=== PATIENT | male | born 1980 | race Caucasian/White ===

== ENCOUNTER → 2018-04-14 16:00 | Outpatient (CLI) | payer BC, SELFPAY ==
[2018-04-14 18:22] LABS: ALB/GLOB Ratio 1.2 RATIO (0.9-2.4); AST(SGOT) 39 U/L (15-37); Alanine Aminotransfer ALT/SGPT 69 U/L (16-61); Albumin, Serum 4.5 g/dL (3.2-5.0); Alkaline Phosphatase 51 U/L (45-117); Anion Gap 11 (5-15); BUN 10 mg/dL (7-18); BUN/Creat Ratio 12.1 RATIO (10-20); Calcium,Total 9.3 mg/dL (8.5-10.1); Chloride 99 mmol/L (98-107); Cholesterol 233 mg/dL (200); Creatinine, Serum 0.83 mg/dL (0.70-1.30); EST Glomerular Filtration Rate 111 mL/min (>60); Est Glom Filt Rate - Afr Amer 134 mL/min (>60); Globulin 3.8 g/dL (2.2-4.2); Glucose 84 mg/dL (74-106); High Density Lipoprotein 43 mg/dL; Potassium 3.6 mmol/L (3.5-5.1); Protein, Total 8.3 g/dL (6.4-8.2); Sodium Level 138 mmol/L (136-145); Triglycerides 210 mg/dL; Very Low Density Lipoprotein 42 mg/dL (5-40)
== END ==
PROVIDERS: Family Provider Family Medicine; PCP Family Medicine; Visit Provider Family Medicine
DX: E78.5 Hyperlipidemia, unspecified (principal)
CPT/HCPCS: 36415; 80053; 80061

== ENCOUNTER → 2019-09-30 10:34 | Outpatient (CLI) | payer BC, SELFPAY ==
[2019-09-30 13:04] LABS: AST(SGOT) 35 U/L (15-37); Alanine Aminotransfer ALT/SGPT 66 U/L (16-61); Albumin, Serum 4.3 g/dL (3.2-5.0); Alkaline Phosphatase 46 U/L (45-117); Anion Gap 7 (5-15); BUN 12 mg/dL (7-18); BUN/Creat Ratio 13.8 RATIO (10-20); Calcium,Total 9.4 mg/dL (8.5-10.1); Chloride 102 mmol/L (98-107); Creatinine, Serum 0.87 mg/dL (0.70-1.30); EST Glomerular Filtration Rate 104 mL/min (>60); Est Glom Filt Rate - Afr Amer 126 mL/min (>60); Globulin 4.1 g/dL (2.2-4.2); Glucose 108 mg/dL (74-106); Potassium 4.1 mmol/L (3.5-5.1); Protein, Total 8.4 g/dL (6.4-8.2); Sodium Level 137 mmol/L (136-145)
== END ==
PROVIDERS: PCP Family Medicine; Referring Provider Family Medicine; Visit Provider Family Medicine
DX: I10 Essential (primary) hypertension (principal)
CPT/HCPCS: 36415; 80053

== ENCOUNTER → 2022-01-29 | Outpatient (CLI) | payer BC, SELFPAY ==
[2022-01-29 18:34] LABS: ALB/GLOB Ratio 1.2 RATIO (0.9-2.4); AST(SGOT) 38 U/L (15-37); Alanine Aminotransfer ALT/SGPT 64 U/L (16-61); Albumin, Serum 4.3 g/dL (3.2-5.0); Alkaline Phosphatase 53 U/L (45-117); Anion Gap 6 (5-15); BUN 10 mg/dL (7-18); BUN/Creat Ratio 14.4 RATIO (10-20); Calcium,Total 9.6 mg/dL (8.5-10.1); Chloride 101 mmol/L (98-107); Cholesterol 195 mg/dL (200); Creatinine, Serum 0.69 mg/dL (0.70-1.30); EST Glomerular Filtration Rate 134 mL/min (>60); Est Glom Filt Rate - Afr Amer 162 mL/min (>60); Globulin 3.6 g/dL (2.2-4.2); Glucose 97 mg/dL (74-106); High Density Lipoprotein 48 mg/dL; Potassium 3.5 mmol/L (3.5-5.1); Protein, Total 7.9 g/dL (6.4-8.2); Sodium Level 136 mmol/L (136-145); Triglycerides 212 mg/dL; Very Low Density Lipoprotein 42 mg/dL (5-40)
== END | disposition home or self-care (01) ==
LOC: MFPLAB 15:38
PROVIDERS: PCP Family Medicine; Referring Provider Family Medicine; Visit Provider Family Medicine
DX: E78.5 Hyperlipidemia, unspecified (principal); U07.1 COVID-19; R79.89 Other specified abnormal findings of blood chemistry
CPT/HCPCS: 36415; 80053; 80061; 86769

== ENCOUNTER → 2022-02-05 | Outpatient (CLI) | payer BC, SELFPAY | END | disposition home or self-care (01) | LOC: US 08:13 | PROVIDERS: PCP Family Medicine; Referring Provider Family Medicine; Visit Provider Family Medicine | DX: R79.89 Other specified abnormal findings of blood chemistry (principal) ==

== ENCOUNTER → 2023-04-03 | Outpatient (CLI) | payer BC, SELFPAY ==
[2023-04-03 12:43] LABS: Hepatitis B Surface Antibody Non-Reactive
[2023-04-03 12:44] LABS: ALB/GLOB Ratio 1.1 RATIO (0.9-2.4); AST(SGOT) 25 U/L (15-37); Alanine Aminotransfer ALT/SGPT 54 U/L (16-61); Albumin, Serum 4.1 g/dL (3.2-5.0); Alkaline Phosphatase 45 U/L (45-117); Anion Gap 5 (5-15); BUN 8 mg/dL (7-18); BUN/Creat Ratio 10.5 RATIO (10-20); Calcium,Total 9.6 mg/dL (8.5-10.1); Chloride 103 mmol/L (98-107); Cholesterol 168 mg/dL (200); Creatinine, Serum 0.76 mg/dL (0.70-1.30); EST Glomerular Filtration Rate 119 mL/min (>60); Est Glom Filt Rate - Afr Amer 144 mL/min (>60); Globulin 3.8 g/dL (2.2-4.2); Glucose 88 mg/dL (74-106); High Density Lipoprotein 30 mg/dL; Potassium 3.9 mmol/L (3.5-5.1); Protein, Total 7.9 g/dL (6.4-8.2); Sodium Level 137 mmol/L (136-145); Triglycerides 108 mg/dL; Very Low Density Lipoprotein 22 mg/dL (5-40)
== END | disposition home or self-care (01) ==
LOC: MTLAB 10:43
PROVIDERS: PCP Family Medicine; Visit Provider Family Medicine
DX: E78.5 Hyperlipidemia, unspecified (principal); R79.89 Other specified abnormal findings of blood chemistry; Z01.84 Encounter for antibody response examination
CPT/HCPCS: 36415; 80053; 80061; 86706

== ENCOUNTER → 2023-07-24 | Outpatient (CLI) | payer BC, SELFPAY ==
[2023-07-24 12:45] LABS: Rheumatoid Factor < 10.0 IU/mL (<15)
[2023-07-25 14:09] LABS: Anti-Smooth Muscle ABS 8 Units (0-19); Cytoplasmic Ab (C-ANCA) <1:20 titer (Neg:<1:20); Perinuclear Ab (P-ANCA) <1:20 titer (Neg:<1:20)
[2023-07-29 12:09] LABS: ANTINUCLEAR ANTIBODIES DIRECT Negative (Negative); Anti-Histone Abs 0.6 Units (0.0-0.9)
== END | disposition home or self-care (01) ==
LOC: MFPLAB 10:38
PROVIDERS: PCP Family Medicine; Visit Provider Family Medicine
DX: L30.9 Dermatitis, unspecified (principal)
CPT/HCPCS: 36415; 83516; 86038; 86235; 86256; 86431

== ENCOUNTER → 2023-08-05 | Outpatient (CLI) | payer BC, SELFPAY ==
[2023-08-05 12:27] LABS: Erythrocyte Sedimentation Rate 36 mm/hr (0-20)
[2023-08-05 12:33] LABS: Absolute Lymphocyte Count 1.12 X10^3/uL (0.83-4.51); Absolute Neutrophil Count 4.4 X10^3/uL (2.0-7.7); Basophil# 0.04 X10^3/uL; Basophil% 0.6 % (0-1); Eosinophil# 0.11 X10^3/uL; Eosinophils% 1.8 % (0-5); Hematocrit 44.3 % (40-54); Hemoglobin 14.8 g/dL (13.0-16.5); Lymphocyte # 1.12 X10^3/ul (0.83-4.51); Lymphocyte % 17.9 % (19-41); Mean Corp Hgb Conc 33.4 g/dL (32-36); Mean Corpuscular Hgb 29.6 pg (27.0-32.0); Mean Corpuscular Volume 88.6 fL (80-94); Mean Platelet Vol. 11.7 fl (6.2-12.0); Monocyte# 0.48 X10^3/uL; Monocyte% 7.7 % (0-10); NRBC Flagged by Analyzer 0 % (0-5); Neutrophil # 4.42 X10^3/uL (2.7-7.7); Neutrophil % 70.4 % (47-70); Platelet Count 177 K/mm3 (150-450); RBC Distribution Width CV 12.8 % (11.6-14.6); RBC Distribution Width SD 41.3 fl (35.1-43.9); White Blood Count 6.3 K/mm3 (4.4-11.0)
[2023-08-05 13:12] LABS: ALB/GLOB Ratio 0.8 RATIO (0.9-2.4); AST(SGOT) 96 U/L (15-37); Alanine Aminotransfer ALT/SGPT 123 U/L (16-61); Albumin, Serum 3.6 g/dL (3.2-5.0); Alkaline Phosphatase 74 U/L (45-117); Anion Gap 10 (5-15); BUN 13 mg/dL (7-18); BUN/Creat Ratio 14.2 RATIO (10-20); Calcium,Total 9.1 mg/dL (8.5-10.1); Chloride 102 mmol/L (98-107); Creatinine, Serum 0.92 mg/dL (0.70-1.30); EST Glomerular Filtration Rate 96 mL/min (>60); Est Glom Filt Rate - Afr Amer 116 mL/min (>60); Globulin 4.6 g/dL (2.2-4.2); Glucose 116 mg/dL (74-106); Potassium 3.9 mmol/L (3.5-5.1); Protein, Total 8.2 g/dL (6.4-8.2); Sodium Level 136 mmol/L (136-145); Thyroid Stim Hormone (TSH) 2.17 uIU/mL (0.358-3.74); Uric Acid 8.1 mg/dL (3.5-7.2)
[2023-08-06 13:07] LABS: CCP IgG Antibodies 5 units (0-19); Lyme Scn Total Ab w/Rflx Negative (Negative); PROEL- A/G Ratio 1.1 (0.7-1.7); PROEL- Albumin 3.9 g/dL (2.9-4.4); PROEL- Alpha-1 Globulin 0.3 g/dL (0.0-0.4); PROEL- Alpha-2 Globulin 1.1 g/dL (0.4-1.0); PROEL- Beta Globulin 1.2 g/dL (0.7-1.3); PROEL- Gamma Globulin 0.9 g/dL (0.4-1.8); PROEL- Globulin, Total 3.6 g/dL (2.2-3.9); PROEL- TOTAL PROTEIN 7.5 g/dL (6.0-8.5); PROEL-M-Spike Not Observed g/dL (Not Observed)
[2023-08-08 03:07] LABS: Alternaria tenuis 5.47 kU/L (Class IV); Ash, White 9.57 kU/L (Class IV); Aspergillus fumigatus 0.95 kU/L (Class II); Beef 0.34 kU/L (Class I); Bermuda Grass 9.46 kU/L (Class IV); Birch 7.86 kU/L (Class IV); Black Walnut 8.18 kU/L (Class IV); Cat Hair / Dander,Stand 0.57 kU/L (Class II); Cedar, Mountain 7.88 kU/L (Class IV); Chocolate 0.91 kU/L (Class II); Cockroach, American 5.44 kU/L (Class IV); Codfish 0.44 kU/L (Class I); Cottonwood 8.88 kU/L (Class IV); D farinae Mite 6.58 kU/L (Class IV); D pteronyssinus 0.88 kU/L (Class II); Dog Epithelia 2.01 kU/L (Class III); Egg, Whole 0.27 kU/L (Class 0/I); Elm, American White 9.05 kU/L (Class IV); Immunoglobulin E 562 IU/mL (6-495); Maple/Box Elder 8.68 kU/L (Class IV); Milk (Cow) 0.21 kU/L (Class 0/I); Mouse Urine 0.38 kU/L (Class I); Mulberry, White 7.75 kU/L (Class IV); Oak, White 7.79 kU/L (Class IV); Peanut 7.95 kU/L (Class IV); Pecan 7.93 kU/L (Class IV); Pigweed, Rough 8.97 kU/L (Class IV); Russian Thistle 9.03 kU/L (Class IV); Salmon 0.47 kU/L (Class I); Sheep Sorrel 8.96 kU/L (Class IV); Shrimp 2.69 kU/L (Class III); Soybean 6.24 kU/L (Class IV); Sycamore, American 9.81 kU/L (Class IV); Tuna 0.43 kU/L (Class I); Wheat 7.36 kU/L (Class IV)
== END | disposition home or self-care (01) ==
LOC: MFPLAB 10:13
PROVIDERS: PCP Family Medicine; Visit Provider Family Medicine
DX: R53.83 Other fatigue (principal); M25.50 Pain in unspecified joint; L98.9 Disorder of the skin and subcutaneous tissue, unspecified
CPT/HCPCS: 36415; 80053; 82785; 84165; 84443; 84550; 85025; 85652; 86003; 86005; 86140; 86200; 86618; 86803

== ENCOUNTER → 2023-08-07 | Outpatient (CLI) | payer BC, SELFPAY ==
--- OUTSIDE RECORDS SUMMARY | 2023-08-07 11:52 | XMS RPT_ITS | CCD ---
Author Name Unknown Address [address] [place] [address] Organization [facility] Care Team Providers Care Adaptive Physical Education Specialist Name Role Phone JOSIE WELSH Primary Care Unavailabl e Results Test Name Value Interpretation Reference Range Facil ity Encounters Encounter Date Encounter Type Care Provider Facility Start: 07-07-2023 End: 07-07-2023 ambulatory JOSIE Luna RITCHIEALIA Facility:[facility] Payers Date Payer Category Payer Unknown [id number] Progress note 07-07-2023 Note Date & Type Note Facility 07-07-2023 Note HNO ID: [id number] Author: Cara Dowd APRN.POWER HOUSE ENGINEER Service: ? Author Type: Nurse Practitioner Type: Progress Notes Filed: 07/07/2023 9:06 AM Note Text: Subjective Eye Problem Pertinent negatives include no chills, congestion, coughing, fever, headaches or sore throat. Ismael Humphreys is a 43 year old male who presents with swelling of his left lower eyelid. It was slight swollen the last 2 mornings, today it is more swollen. It is not tender. He states his left eye feels itchy. Denies visual difficulty or foreign body sensation. He has had increased watering of his left eye but no discharge. He denies associated URI symptoms. He denies any new medications. Review of Systems Constitutional: Negative for chills and fever. HENT: Negative for congestion, ear pain and sore throat. Eyes: Negative for blurred vision, double vision, photophobia, pain, discharge and redness. Respiratory: Negative for cough. Neurological: Negative for headaches. BP 128/82 Pulse 96 Temp 36.9 ?C (98.5 ?F) Resp 16 Wt 94.8 kg (209 lb) SpO2 98% BMI 29.99 kg/m? PAST MEDICAL HISTORY Diagnosis Date HTN (hypertension) PAST SURGICAL HISTORY Procedure Laterality Date NONE VASECTOMY UNI/BI SPX W/POSTOP SEMEN EXAMS Bilateral 07/30/2016 ALLERGIES Patient has no known allergies. MEDICATIONS amLODIPine-Valsartan 5-320 mg per tablet Take 1 tablet by mouth every afternoon. ketotifen fumarate (ZADITOR) 0.025 % (0.035 %) ophthalmic solution Use 1 Drop in the left eye two times a day for 30 days. acetaminophen-codeine (TYLENOL-COD #3) 300-30 mg per tablet Take 1 tablet by mouth every 4 hours as needed. LORazepam (ATIVAN) 2 mg tab Take 1 tablet by mouth as directed. Take 1 tablet by mouth 45 minutes prior to procedure No family history on file. Social History Tobacco Use Smoking status: Former Objective Physical Exam Vitals and nursing note reviewed. Constitutional: Appearance: Normal appearance. HENT: Right Ear: Tympanic membrane, ear canal and external ear normal. Left Ear: Tympanic membrane, ear canal and external ear normal. Nose: Nose normal. Mouth/Throat: Pharynx: Uvula midline. Eyes: General: Vision grossly intact. Gaze aligned appropriately. No allergic shiner. Left eye: No foreign body, discharge or hordeolum. Extraocular Movements: Left eye: Normal extraocular motion and no nystagmus. Conjunctiva/sclera: Right eye: Right conjunctiva is not injected. Left eye: Left conjunctiva is not injected. No chemosis, exudate or hemorrhage. Cardiovascular: Rate and Rhythm: Normal rate. Pulmonary: Effort: Pulmonary effort is normal. Musculoskeletal: Cervical back: Neck supple. Lymphadenopathy: Cervical: No cervical adenopathy. Skin: General: Skin is warm and dry. Findings: No erythema or rash. Neurological: Mental Status: He is alert. ASSESSMENT/PLAN: 1. Swelling of left eyelid - ICD9: 374.82, ICD10: H02.846 - suspect allergic - KETOTIFEN 0.025 % (0.035 %) EYE DROPS - Follow-up with your PCP in 3-5 days if symptoms have not improved or sooner if symptoms worsen - Discussed red flags and need for immediate medical evaluation if any occur. - Discussed supportive care treatment with fluids, rest and analgesia. - Discussed expected course of illness Cara Dowd APRN.[facility] Summary Purpose Family History No Family History Records Found Advance Directives No Advanced Directives Records Found Additional Source Comments (unrecognized sect ion and content) No Status Records Found INFORMATION SOURCE (unrecogn ized section and content) FOR RECORDS PERTAINING TO PATIENTS WHO ARE OR HAVE BEEN ENROLLED IN A CHEMICAL DEPENDENCY/SUBSTANCEABUSE PROGRAM, SOME INFORMATION MAY BE OMITTED. This clinical summary was aggregated from multiple sources. Caution should be exercised in using it in the provision of clinical care. This summary normalizes information from multiple sources, and as a consequence, information in this document may materially change the coding, format and clinical context of patient data. In addition, data may be omitted in some cases. CLINICAL DECISIONS SHOULD BE BASED ON THE PRIMARY CLINICAL RECORDS. [facility] [employer] [facility]. provides no warranty or guarantee of the accuracy or completeness of information in this document.
[2023-08-08 07:08] LABS: HEPATITIS B SURFACE AG Negative (Negative); Hep C Antibodies Non Reactive (Non Reactive); Hepatitis A IgM Antibody Negative (Negative); Hepatitis B Core AB IgM Negative (Negative)
== END | disposition home or self-care (01) ==
LOC: MFPLAB 11:19
PROVIDERS: PCP Family Medicine; Visit Provider Family Medicine
DX: R79.89 Other specified abnormal findings of blood chemistry (principal)
CPT/HCPCS: 36415; 80074

== ENCOUNTER → 2023-09-09 | Outpatient (CLI) | payer BC, SELFPAY ==
--- NOTE | 2023-09-09 11:31 | RAD_ITS ---
STUDY: X-RAY - ABDOMEN/PELVIS REASON FOR EXAM: Male, 43 years old. Fecal abnormalities TECHNIQUE: AP supine and upright views of the abdomen and pelvis. COMPARISON: None. FINDINGS: Normal visualized lung bases. There is an abundance of fecal material throughout the colon. There is no demonstrated free abdominal air. The visualized liver, spleen and kidneys are grossly normal in size and morphology. Normal soft tissue structures. RAD/Abd Inc Decub and/or Erect IMPRESSION: Large amount of fecal material is seen in the colon. Electronically Signed: Dontrell Issa MD at 15:11 EST ,
--- OUTSIDE RECORDS SUMMARY | 2023-09-09 12:00 | XMS RPT_ITS | CCD ---
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] Onset: 09-04-2023 Episodic Biliary tract disease (1 source) Other specified diseases of gallbladder; Translations: [Other specified diseases of gallbladder] Onset: 08-27-2023 Episodic Other non-traumatic joint disorders (1 source) Pain in unspecified joint; Translations: [Arthralgia, unspecified joint] Onset: 09-04-2023 Episodic Other screening for suspected conditions (not mental disorders or infectious disease) (2 sources) Other specified abnormal findings of blood chemistry; Translations: [Other specified abnormal findings of blood chemistry] Onset: 08-27-2023 Episodic Results Test Name Value Interpretation Reference Range Facil ity Encounters Encounter Date Encounter Type Care Provider Facility Start: 09-04-2023 End: 09-04-2023 ambulatory LAMIN WILD Facility:[facility] Start: 08-27-2023 End: 08-27-2023 ambulatory JOSIE WELSH [facility] Start: 07-07-2023 End: 07-07-2023 ambulatory JOSIE WELSH Facility:[facility] Payers Date Payer Category Payer Unknown [id number] 1980 Unknown [id number] Unknown Progress note 07-07-2023 Note Date & Type Note Facility 07-07-2023 Note HNO ID: [id number] Author: aCra Dowd APRN.MACHINE BUFFER Service: ? Author Type: Nurse Practitioner Type: [...] Discussed expected course of illness Cara Dowd APRN.[facility] Summary Purpose Family History No Family History Records FoundNo Family History Records FoundNo Family History Records Found Advance Directives No Advanced Directives Records FoundNo Advanced Directives Records FoundNo Advanced Directives Records Found Additional Source Comments (unrecognized sect ion and content) No Status Records FoundNo Status Records FoundNo Status Records Found INFORMATION SOURCE (unrecogn ized section and content) DATE CREATED AUTHOR AUTHOR'S ORGANIZ ATION 08/29/2023 [facility] DATE CREATED AUTHOR AUTHOR'S ORGANIZ ATION 09/06/2023 [facility] FOR RECORDS PERTAINING TO PATIENTS WHO ARE [...] BE BASED ON THE PRIMARY CLINICAL RECORDS. [employer] [facility]. provides no warranty or guarantee of the accuracy or completeness of information in this document.
[2023-09-09 15:26] LABS: Absolute Lymphocyte Count 1.01 X10^3/uL (0.83-4.51); Absolute Neutrophil Count 3.3 X10^3/uL (2.0-7.7); Basophil# 0.01 X10^3/uL; Basophil% 0.2 % (0-1); Eosinophil# 0.17 X10^3/uL; Eosinophils% 3.6 % (0-5); Hematocrit 38.2 % (40-54); Hemoglobin 12.4 g/dL (13.0-16.5); Lymphocyte # 1.01 X10^3/ul (0.83-4.51); Lymphocyte % 21.2 % (19-41); Mean Corp Hgb Conc 32.5 g/dL (32-36); Mean Corpuscular Hgb 27.8 pg (27.0-32.0); Mean Corpuscular Volume 85.7 fL (80-94); Monocyte% 6.3 % (0-10); NRBC Flagged by Analyzer 0 % (0-5); Neutrophil # 3.25 X10^3/uL (2.7-7.7); Neutrophil % 68.3 % (47-70); Platelet Count 174 K/mm3 (150-450); RBC Distribution Width CV 13.3 % (11.6-14.6); RBC Distribution Width SD 41.5 fl (35.1-43.9); Red Blood Count 4.46 M/mm3 (4.6-6.2); White Blood Count 4.8 K/mm3 (4.4-11.0)
[2023-09-09 15:45] LABS: Erythrocyte Sedimentation Rate 30 mm/hr (0-20)
[2023-09-09 16:11] LABS: ALB/GLOB Ratio 0.9 RATIO (0.9-2.4); AST(SGOT) 56 U/L (15-37); Alanine Aminotransfer ALT/SGPT 79 U/L (16-61); Albumin, Serum 3.6 g/dL (3.2-5.0); Alkaline Phosphatase 57 U/L (45-117); Anion Gap 10 (5-15); BUN 6 mg/dL (7-18); BUN/Creat Ratio 9.3 RATIO (10-20); CPK Total, Creatine Kinase 256 U/L (39-308); CRP 7.33 mg/L (0.0-3.0); Chloride 105 mmol/L (98-107); Creatinine, Serum 0.65 mg/dL (0.70-1.30); EST Glomerular Filtration Rate 144 mL/min (>60); Est Glom Filt Rate - Afr Amer 174 mL/min (>60); GGTP 64 U/L (15-85); Globulin 3.9 g/dL (2.2-4.2); Glucose 85 mg/dL (74-106); Potassium 3.6 mmol/L (3.5-5.1); Protein, Total 7.5 g/dL (6.4-8.2); Rheumatoid Factor < 10.0 IU/mL (<15); Sodium Level 140 mmol/L (136-145)
[2023-09-11 10:09] LABS: Lyme Scn Total Ab w/Rflx Negative (Negative)
[2023-09-11 14:09] LABS: ANTINUCLEAR ANTIBODIES DIRECT Negative (Negative); Anti-Mitochondrial AB <20.0 Units (0.0-20.0)
[2023-09-11 15:08] LABS: Aldolase 6.4 U/L (3.3-10.3); Anti-Smooth Muscle ABS 9 Units (0-19); CCP IgG Antibodies 8 units (0-19)
== END | disposition home or self-care (01) ==
PROVIDERS: Internal Medicine Rheumatology; PCP Family Medicine; Referring Provider Family Medicine; Visit Provider Family Medicine
DX: M06.4 Inflammatory polyarthropathy (principal); R74.8 Abnormal levels of other serum enzymes; I10 Essential (primary) hypertension; R19.5 Other fecal abnormalities; M25.50 Pain in unspecified joint
CPT/HCPCS: 36415; 74019; 80053; 82085; 82271; 82550; 82977; 83516; 83630; 85025; 85652; 86038; 86140; 86200; 86431; 86618; 87177; 87209; 87493; 87506

== ENCOUNTER 2023-09-10 15:46 | Outpatient (CLI) | payer BC, SELFPAY ==
[2023-09-17 22:07] LABS: Pancreatic Elastase, Fecal 64 (>200)
== END 2023-09-10 23:59 | disposition home or self-care (01) ==
LOC: LABSPEC 15:46
PROVIDERS: PCP Family Medicine; Referring Provider Family Medicine; Visit Provider Family Medicine
DX: R19.5 Other fecal abnormalities (principal)
CPT/HCPCS: 82653; 87177; 87209

== ENCOUNTER 2023-09-20 17:01 | Observation (INO) | payer BC, SELFPAY ==
[2023-09-20 17:03] VITALS: BP 107/76; PULSE 145; RESP 22; TEMP 36.6; O2SAT 97
[2023-09-20 17:38] VITALS: BMI 25.9
[2023-09-20 17:47] VITALS: BP 129/88; PULSE 132; O2SAT 96
[2023-09-20 17:47] LABS: Absolute Lymphocyte Count 0.98 X10^3/uL (0.83-4.51); Absolute Neutrophil Count 7.6 X10^3/uL (2.0-7.7); Basophil# 0.02 X10^3/uL; Basophil% 0.2 % (0-1); Eosinophil# 0.03 X10^3/uL; Eosinophils% 0.3 % (0-5); Hematocrit 33.6 % (40-54); Hemoglobin 11.3 g/dL (13.0-16.5); Lymphocyte # 0.98 X10^3/ul (0.83-4.51); Lymphocyte % 10.4 % (19-41); Mean Corp Hgb Conc 33.6 g/dL (32-36); Mean Corpuscular Hgb 28.5 pg (27.0-32.0); Mean Corpuscular Volume 84.8 fL (80-94); Mean Platelet Vol. 11.8 fl (6.2-12.0); Monocyte# 0.75 X10^3/uL; NRBC Flagged by Analyzer 0 % (0-5); Neutrophil # 7.59 X10^3/uL (2.7-7.7); Neutrophil % 80.7 % (47-70); Platelet Count 173 K/mm3 (150-450); RBC Distribution Width CV 13.4 % (11.6-14.6); RBC Distribution Width SD 41.6 fl (35.1-43.9); Red Blood Count 3.96 M/mm3 (4.6-6.2); White Blood Count 9.4 K/mm3 (4.4-11.0)
--- NOTE | 2023-09-20 17:47 | EDS_ITS ---
HPI HPI - GI History of Present Illness Chief Complaint: Abd Pain Narrative Narrative: 43-year-old male presenting with abdominal pain, cramping. He states he had it on and off since June. He states has been seeing his primary care provider for this and has had multiple labs drawn. He states that so far he had a ultrasound of the right upper quadrant which was negative. He had an x-ray which was negative. His blood work has not been very remarkable except he does mention that he had some kind of allergy testing in his labs and he was allergic to a lot of different things. He states that specifically mentioning allergic to corn, shrimp, beef. He states he eats he stands all the time and does not have any difficulty. He states he does go to [place] frequently and eat seafood and specifically mentions he is allergic to this as well although he does not have any symptoms when he eats. The patient has been having loose stools since June. Initially started with constipation and took some MiraLAX and his constipation resolved he had loose stools. He states he had multiple office visits and blood test which have not been diagnostic. He does express some concern that he has a family member who has Crohn's disease and she thinks he m ight have a bowel obstruction and Crohn's disease although has not been diagnosed and none of his lab work has been consistent with this. Patient also states that they thought he had rheumatoid arthritis and they put him on prednisone for a stent and he said this made him feel awful and he did not like the way it felt. Patient does note that after the last 2 days he has had some left-sided lower abdominal pain which is able to localize with 1 finger to the left lower quadrant. He states he has a fever of 102 ?F yesterday and his stool is much looser than it has been. Denies black or bloody stools. He does admit to about a 30 pound weight loss since June. He was post have an outpatient CT performed but has not had this done due to scheduling issues. He is supposed to see somebody from rheumatology but this appointment also had scheduling issues. He is referred to GI and was referred to both someone at [facility] and to another local GI doctor to see who he had an first. [facility] Medical History HTN (hypertension) Home Medications amlodipine 5 mg-valsartan 320 mg tablet 1 tab PO DAILY 09/20/23 [History Last Taken Unknown] multivitamin 1 tab PO DAILY 09/20/23 [History Last Taken Unknown] Allergy/AdvReac Type Severity Reaction Status Date / Time No Known Allergies Allergy Verified 09/20/23 17:02 Family History Mother Cancer Father Li's palsy Grandfather CVA (cerebral vascular accident) Surgical History H/O: vasectomy Social History household members: family housing: house number of children: 2 current occupational status: employed Smoking Status: Never smoker EXAM Physical Exam Const Vital Signs: 09/20/23 17:03 09/20/23 17:47 Temperature 98 F Temperature Source Temporal Pulse Rate 145 H 132 H Respiratory Rate 22 H Blood Pressure 107/76 129/88 H Blood Pressure Mean 86 101 Pulse Ox 97 96 Oxygen Delivery Method Room Air Positive well nourished General Appearance ED: NAD; Negative for pallor HEENT Reports TM's clear and moist mucous membranes normocephalic Tympanic Membrane ED: Yes TM's clear Cardio regular rate Rate: tachycardic GI Palpation: tender LLQ Back/Spine no CVA tenderness Neuro CN's II-XII intact bilaterally Sensorium / Orientation: alert Psych mental status grossly normal Skin General Skin Exam: Negative for jaundice or pallor MDM MDM MDM Narrative Medical decision making narrative: 43-year-old male presents with left lower quadrant abdominal pain. Patient presenting with right flank pain. Differential includes colitis, diverticulitis, gastritis, pancreatitis, constipation, UTI, pyelonephritis, renal calculi, ureteral calculi, bowel obstruction, malignancy, dehydration, electrolyte abnormalities. Ultimately CBC, CMP, lipase all within normal limits with exception of wrists hemoglobin which has been trending down slightly. Patient denies black or bloody stools. Patient declined analgesia. We did obtain a CT of the abdomen pelvis with IV contrast which shows a low-density mass arising off of the distal sigmoid which could be focal colitis versus abscess versus mass/malignancy. Given the patient's story of weight loss I suspect malignancy. I spoke with Dr. Gabriel who reviewed the CT and concurs. It is unclear why the patient had a fever but he is very well- appearing and his vital signs have been normal with exception of a little tachycardia. Did send for COVID, influenza, RSV. It was recommended that I admit the patient to medicine for bowel prep tomorrow and colonoscopy on Friday to do biopsies. Patient was amenable to this plan. He is admitted in stable condition. Impression: 1. Abdominal pain 2. Intestinal mass Lab Data Attestation: I reviewed the patient's lab results. Labs: Laboratory Results - last 24 hr 09/20/23 17:40 WBC 9.4 RBC 3.96 L Hgb 11.3 L Hct 33.6 L MCV 84.8 MCH 28.5 MCHC 33.6 RDW Std Deviation 41.6 RDW Coeff of Elysia 13.4 Plt Count 173 MPV 11.8 Immature Gran % (Auto) 0.400 Neut % (Auto) 80.7 H Lymph % (Auto) 10.4 L [place] % (Auto) 8.0 Eos % (Auto) 0.3 Baso % (Auto) 0.2 Absolute Neuts (auto) 7.6 Absolute Lymphs (auto) 0.98 Nucleated RBC % 0 Sodium 136 Potassium 3.4 L Chloride 104 Carbon Dioxide 23.0 Anion Gap 9 BUN 7 Creatinine 0.54 L Estim Creat Clear Calc 184.00 Est GFR (MDRD) Af Amer 214 Est GFR (MDRD) Non-Af 177 BUN/Creatinine Ratio 13.0 Glucose 94 Calcium 8.7 Total Bilirubin 1.00 AST 29 ALT 41 Alkaline Phosphatase 52 Total Protein 7.0 Albumin 3.1 L Globulin 3.9 Albumin/Globulin Ratio 0.8 L Lipase 14 Radiography Diagnostic Testing: Clinical Impression(s) from Imaging Studies Abdomen/Pelvis CT 09/20/23 18:15 IMPRESSION: Low-density mass in the pelvis arising off of the distal sigmoid colon. There is thickening the wall the adjacent colon is uncertain whether this represents focal colitis or developing abscess or a colon mass. There is inflammation in the surrounding mesentery with thickening of the wall and terminal ileum. There is no free air identified. Further evaluation with colonoscopy may be beneficial. Electronically Signed: Glen Baptiste MD at 18:43 EST , Discharge Plan Triage Chief Complaint: Abd Pain ED Provider: Gilberto Chi Dx/Rx/DC Orders Primary Care Provider: Timoteo Jara
[2023-09-20] MEDS: 0.9% Normal Saline (1000mL) 1,000 ML 1000 ML IV (17:48)
[2023-09-20 18:09] LABS: ALB/GLOB Ratio 0.8 RATIO (0.9-2.4); AST(SGOT) 29 U/L (15-37); Alanine Aminotransfer ALT/SGPT 41 U/L (16-61); Albumin, Serum 3.1 g/dL (3.2-5.0); Alkaline Phosphatase 52 U/L (45-117); Anion Gap 9 (5-15); BUN 7 mg/dL (7-18); Calcium,Total 8.7 mg/dL (8.5-10.1); Chloride 104 mmol/L (98-107); Creatinine, Serum 0.54 mg/dL (0.70-1.30); EST Glomerular Filtration Rate 177 mL/min (>60); Est Glom Filt Rate - Afr Amer 214 mL/min (>60); Globulin 3.9 g/dL (2.2-4.2); Glucose 94 mg/dL (74-106); Lipase 14 U/L (13-75); Potassium 3.4 mmol/L (3.5-5.1); Sodium Level 136 mmol/L (136-145)
--- NOTE | 2023-09-20 18:15 | CT_ITS ---
EXAM: CT ABDOMEN AND PELVIS WITH INTRAVENOUS CONTRAST CLINICAL INDICATION: llq abdominal pain TECHNIQUE: Helically acquired images were obtained of the abdomen and pelvis with intravenous contrast. This CT exam was performed using one or more of the following dose reduction techniques: automated exposure control, adjustment of the mA and/or kV according to patient size, and/or use of iterative reconstruction technique. CONTRAST: IV 100mL Isovue-370 COMPARISON: No relevant prior studies available. FINDINGS: LOWER THORAX: Unremarkable. Lung bases are clear. No cardiomegaly. No significant pericardial effusion. ABDOMEN: LIVER: Unremarkable. Homogeneous. No focal mass. GALLBLADDER AND BILE DUCTS: Unremarkable. No calcified gallstones. No gallbladder distention or wall edema. No intra- or extrahepatic biliary ductal dilation. PANCREAS: Unremarkable. No focal cystic or solid mass. SPLEEN: Unremarkable. Normal size without focal cystic or solid mass. ADRENALS: Unremarkable. No nodules. KIDNEYS AND URETERS: Unremarkable. Normal renal size and position. No hydronephrosis. STOMACH AND BOWEL: There is a 5.8 x 4.4 x 4.5 cm low density mass abutting against the distal sigmoid colon. There is thickening of the wall the colon surroundin uncertain whether this represents focal colitis with a developing abscess or a colon mass. There is adjacent thickening of the wall, ileum. There is no evidence of free air. No stomach or bowel distention. PELVIS: APPENDIX: No evidence of acute appendicitis. BLADDER: Unremarkable. REPRODUCTIVE: Unremarkable as visualized. No mass. ABDOMEN and PELVIS: INTRAPERITONEAL SPACE: See above. BONES/JOINTS: Unremarkable. No suspicious lytic or blastic abnormality. SOFT TISSUES: Unremarkable. No discrete abdominal or pelvic wall hernia. VASCULATURE: Unremarkable. Abdominal aorta is non-dilated. LYMPH NODES: Unremarkable. No enlarged lymph nodes. CT/Abdomen/Pelvis W IV Cont ONLY IMPRESSION: Low-density mass in the pelvis arising off of the distal sigmoid colon. There is thickening the wall the adjacent colon is uncertain whether this represents focal colitis or developing abscess or a colon mass. There is inflammation in the surrounding mesentery with thickening of the wall and terminal ileum. There is no free air identified. Further evaluation with colonoscopy may be beneficial. Electronically Signed: Glen Baptiste MD at 18:43 EST ,
--- NOTE | 2023-09-20 19:43 | HP.PCM.HOS_ITS ---
[facility] - General General Date of Admission: 09/20/23 Date of Service: 09/20/23 Chief Complaint: Abdominal Pain with ~30# weight loss and Fever. HPI Narrative ISMAEL HUMPHREYS, is a 43 M with a past medical history of essential hypertension and positive family history of Crohn's disease in his sister who presents to [facility] ER complaining of abdominal pain. Mr. Humphreys reports his symptoms began approximately three months prior to admission with cramping abdominal pain and constipation for which he has been evaluated by his PCP with an extensive laboratory workup and imaging with allergy testing incongruent with his experience. He then began to take MiraLAX and his constipation resolved but his abdominal pain did not with an ~30 # weight loss since June 2023. At one point he was started on Prednisone for suspected RA which actually made his symptoms worse. An outpatient CT was ordered but was yet to be obtained due to scheduling issues. Then over the past 2 days he developed a fever up to 102 degrees Fahrenheit with worsening abdominal pain and non-bloody diarrhea so he decided to come in for further evaluation and treatment. In the ER his CT scan of the abdomen and pelvis revealed a Low-density mass in the pelvis arising off of the distal sigmoid colon with thickening of the wall of the adjacent colon suspicious for possible focal colitis and/or developing abscess or a colon mass with inflammation in the surrounding mesentery with thickening of the wall and terminal ileum with no free air identified and radiologist recommending further evaluation with colonoscopy with laboratory tests positive for Hypokalemia of 3.4 mmol/L present on admission and he was then admitted to the general medical floor for ongoing care for a stay that is expected to be greater than 48 hours. [facility] Medical History HTN (hypertension) Home Medications amlodipine 5 mg-valsartan 320 mg tablet 1 tab PO DAILY 09/20/23 [History Last Taken Unknown] multivitamin 1 tab PO DAILY 09/20/23 [History Last Taken Unknown] Allergy/AdvReac Type Severity Reaction Status Date / Time No Known Allergies Allergy Verified 09/20/23 17:02 Family History Mother Cancer Father Li's palsy Grandfather CVA (cerebral vascular accident) Surgical History H/O: vasectomy Social History household members: family housing: house number of children: 2 current occupational status: employed Smoking Status: Never smoker Vital Signs Vital Signs Vital Signs: 09/20/23 17:03 09/20/23 17:47 Temperature 98 F Temperature Source Temporal Pulse Rate 145 H 132 H Respiratory Rate 22 H Blood Pressure 107/76 129/88 H Blood Pressure Mean 86 101 Pulse Ox 97 96 Oxygen Delivery Method Room Air Weight Weight: 181 lb 3.52 oz Body Mass Index (BMI) 25.9 Physical Exam Const alert, oriented x3, no apparent distress and average body habitus General Appearance: cooperative HEENT normocephalic, head/scalp atraumatic and hearing grossly normal bilaterally Results Medical Records Data Attestation: I reviewed the patient's medical records Lab / Micro Data Attestation: I reviewed the patient's lab results. 09/20/23 17:40 09/20/23 17:40 Labs: Laboratory Results - last 24 hr 09/20/23 17:40: WBC 9.4, RBC 3.96 L, Hgb 11.3 L, Hct 33.6 L, MCV 84.8, MCH 28.5, MCHC 33.6, RDW Std Deviation 41.6, RDW Coeff of Elysia 13.4, Plt Count 173, MPV 11.8, Immature Gran % (Auto) 0.400, Neut % (Auto) 80.7 H, Lymph % (Auto) 10.4 L, [place] % (Auto) 8.0, Eos % (Auto) 0.3, Baso % (Auto) 0.2, Absolute Neuts (auto) 7.6, Absolute Lymphs (auto) 0.98, Nucleated RBC % 0, Sodium 136, Potassium 3.4 L , Chloride 104, Carbon Dioxide 23.0, Anion Gap 9, BUN 7, Creatinine 0.54 L, Estim Creat Clear Calc 184.00, Est GFR (MDRD) Af Amer 214, Est GFR (MDRD) Non-Af 177, BUN/Creatinine Ratio 13.0, Glucose 94, Calcium 8.7, Total Bilirubin 1.00, AST 29, ALT 41, Alkaline Phosphatase 52, Total Protein 7.0, Albumin 3.1 L, Globulin 3.9, Albumin/Globulin Ratio 0.8 L, Lipase 14 Imaging Radiology Impression Abdomen/Pelvis CT 09/20/23 18:15 IMPRESSION: Low-density mass in the pelvis arising off of the distal sigmoid colon. There is thickening the wall the adjacent colon is uncertain whether this represents focal colitis or developing abscess or a colon mass. There is inflammation in the surrounding mesentery with thickening of the wall and terminal ileum. There is no free air identified. Further evaluation with colonoscopy may be beneficial. Electronically Signed: Glen Baptiste MD at 18:43 EST , Assessment & Plan Assessment/Plan (1) Focal active colitis: (2) Diarrhea: QUALIFIERS: Diarrhea type: unspecified type Qualified Code(s): R19.7 - Diarrhea, unspecified (3) Hypokalemia due to excessive gastrointestinal loss of potassium: (4) Abdominal pain: QUALIFIERS: Abdominal location: generalized Qualified Code(s): R10.84 - Generalized abdominal pain (5) Weight loss, non-intentional: PLAN: Plan 1. CT positive for Low-density mass in the pelvis arising off of the distal sigmoid colon with thickening of the wall of the adjacent colon suspicious for possible focal colitis and/or developing abscess or a colon mass with inflammation in the surrounding mesentery with thickening of the wall and termin al ileum with no free air identified and radiologist recommending further evaluation with colonoscopy - Admit to general medical floor. Start empiric IV Rocephin and IV Flagyl to cover Gram-negatives and anaerobes typically associated with colitis and await culture and sensitivity data. Give Tylenol prn for [id number] (level 1-5/10) pain or fever. Give Morphine IV prn for severe (level6-10/10) pain. Finally, we will consult Dr. Gabriel of general surgery to see this patient on-rounds in the AM for further recommendations regarding colonoscopy and possible biopsy with help appreciated in advance. 2. Diarrhea with Chronic Abdominal Pain and Hypokalemia of 3.4 mmol/L present on admission complicating #1 - Check stool studies and place on enteric precautions. Give supplemental KCl and then recheck BMP in the AM to ensure improvement. 3. Unintentional ~30# weight loss since June 2023 with a high-index of suspicion for underlying malignancy compounding #1 & #2 - Noted. Add Ensure to meals. Check prealbumin and encourage PO intake. 4. Positive family history of Crohn's disease in his sister with CT revealing thickening of the terminal ileum - Noted. Crohn's diagnosis may be coexisting with possible malignancy. 5. Essential Hypertension - Continue Amlodipine as previous plus give prn IV Hydralazine for systolic blood pressure > 160 mm Hg. 6. DVT prophylaxis - Heparin 5,000 units sq TID plus SCD's. Total time: Approximately 75 minutes. Charges/Coding Visit Charges Inpatient E&M: 82977 Init Hosp L3
[2023-09-20 20:44] VITALS: BP 123/74; PULSE 112; RESP 19; O2SAT 95
[2023-09-20 20:45] VITALS: BP 123/74; PULSE 112; RESP 19; TEMP 36.7; O2SAT 95
[2023-09-20 21:26] VITALS: BMI 25.7
[2023-09-20 21:42] VITALS: BP 128/81; PULSE 120; RESP 18; TEMP 36.9; O2SAT 97
[2023-09-20] MEDS: KCL 20MEQ in 0.9% NS 20 MEQ/1,000 ML IV.SOLN. 150 MEQ IV (21:48)
[2023-09-20] MEDS: metroNIDAZOLE 500 MG/100 ML BAG 100 MG IV (22:10)
[2023-09-20] MEDS: Heparin Injection (Vial) 5,000 UNIT/ML VIAL 5000 UNIT SC (22:10)
[2023-09-20] MEDS: Potassium Chloride Oral Tablet 20 MEQ 60 MEQ PO (22:16)
[2023-09-20] MEDS: Ceftriaxone 1 GM/50 ML BAG IV (22:17)
[2023-09-20 23:24] VITALS: O2SAT 98
[2023-09-21] MEDS: MELATONIN 3 MG TABLET 6 MG PO (00:09)
[2023-09-21 03:40] VITALS: BP 116/79; PULSE 108; RESP 18; TEMP 36.9; O2SAT 100
[2023-09-21 06:00] VITALS: BMI 26.2
[2023-09-21] MEDS: Heparin Injection (Vial) 5,000 UNIT/ML VIAL 5000 UNIT SC ×3 (06:00→22:37)
[2023-09-21] MEDS: metroNIDAZOLE 500 MG/100 ML BAG 100 MG IV ×3 (06:00→22:34)
[2023-09-21] MEDS: KCL 20MEQ in 0.9% NS 20 MEQ/1,000 ML IV.SOLN. 150 MEQ IV (06:00)
[2023-09-21 06:38] LABS: Absolute Lymphocyte Count 0.91 X10^3/uL (0.83-4.51); Absolute Neutrophil Count 5.2 X10^3/uL (2.0-7.7); Basophil# 0.01 X10^3/uL; Basophil% 0.1 % (0-1); Eosinophil# 0.05 X10^3/uL; Eosinophils% 0.7 % (0-5); Hematocrit 31.8 % (40-54); Hemoglobin 10.2 g/dL (13.0-16.5); Lymphocyte # 0.91 X10^3/ul (0.83-4.51); Lymphocyte % 13.1 % (19-41); Mean Corp Hgb Conc 32.1 g/dL (32-36); Mean Corpuscular Hgb 27.6 pg (27.0-32.0); Mean Corpuscular Volume 85.9 fL (80-94); Mean Platelet Vol. 12.9 fl (6.2-12.0); Monocyte% 10.1 % (0-10); NRBC Flagged by Analyzer 0 % (0-5); Neutrophil # 5.24 X10^3/uL (2.7-7.7); Neutrophil % 75.6 % (47-70); Platelet Count 161 K/mm3 (150-450); RBC Distribution Width CV 13.6 % (11.6-14.6); RBC Distribution Width SD 42.5 fl (35.1-43.9); White Blood Count 6.9 K/mm3 (4.4-11.0)
[2023-09-21 07:17] LABS: ALB/GLOB Ratio 0.7 RATIO (0.9-2.4); AST(SGOT) 23 U/L (15-37); Alanine Aminotransfer ALT/SGPT 28 U/L (16-61); Albumin, Serum 2.6 g/dL (3.2-5.0); Alkaline Phosphatase 44 U/L (45-117); Anion Gap 6 (5-15); BUN 6 mg/dL (7-18); Calcium,Total 8.3 mg/dL (8.5-10.1); Chloride 110 mmol/L (98-107); Creatinine, Serum 0.46 mg/dL (0.70-1.30); EST Glomerular Filtration Rate 213 mL/min (>60); Est Glom Filt Rate - Afr Amer 258 mL/min (>60); Globulin 3.6 g/dL (2.2-4.2); Glucose 89 mg/dL (74-106); Magnesium 2.3 mg/dL (1.6-2.6); Phosphorus 3.1 mg/dL (2.5-4.9); Potassium 4.2 mmol/L (3.5-5.1); Protein, Total 6.2 g/dL (6.4-8.2); Sodium Level 138 mmol/L (136-145); Thyroid Stim Hormone (TSH) 1.56 uIU/mL (0.358-3.74)
--- NOTE | 2023-09-21 07:36 | PN.HOSP_ITS ---
Reason for Visit Reason for Visit: Abdominal pain/weight loss/fever Subjective Subjective Mr. Humphreys is a 43-year-old white male who presented to the emergency department on 09/20/2023 with a chief complaint of abdominal pain, 30 pound weight loss, and fever. He has a positive family history of Crohn's disease in his sister. He reported that his symptoms began about 3 months prior to presentation with cramping and constipation. He was evaluated by his PCP and had extensive lab work performed, imaging, and allergy testing. He began to take MiraLAX and his constipation resolved but his abdominal pain did not and his weight loss continued. He reports about a 30 pound weight loss since June 2023. At 1 point he was suspected to have rheumatoid arthritis and they gave him prednisone but this actually made his symptoms worse. An outpatient CT was ordered but he had not yet been able to get it performed due to scheduling issues. 2 days prior to presentation he began having fevers up to 102 degrees, worsening abdominal pain and nonbloody diarrhea so he came in for further treatment. Vital signs on presentation showed temperature of 98, heart rate 145, blood pressure was 107/76, respiratory rate was 22 and oxygen saturations were 97% on room air. His CBC showed a normal white count but he did have a mild anemia with a hemoglobin of 11.3 and a left shift with an 86.7% neutrophilia. His chemistry panel showed mild hypokalemia with a potassium of 3.4, normal renal function, normal liver function, normal bilirubin, normal alk phos and normal lipase. TSH was normal. A CT of the abdomen pelvis was performed and showed a low-density mass in the pelvis arising off the distal sigmoid colon with adjacent wall thickening and it was unclear whether this represented focal colitis, developing abscess, or colonic mass. There was inflammation in the surrounding mesentery with thickening of the wall and terminal ileum. The ER discussed the case with Dr. Gabriel who reviewed the CT and noted he would see the patient on consult after admission. Patient states this has been ongoing for months. He states some of his weight loss has been due to medications that were bothering his stomach but some of it was before that event occurred. He seems to have leveled off with regards to his weight loss recently however per discussion with him. He states he was seeing rheumatology and extensive workup was done because he is having ongoing polyarthropathy's that are migrating in nature and his workup was entirely negative. He does have mildly elevated inflammatory markers. He was told by rheumatology that they think what ever is going on his abdomen is likely the etiology of his migratory polyarthropathy. Objective Data Objective Data Vital Signs: Vital Signs Temp Pulse Resp BP Pulse Ox O2 Del Method 98.4 F 108 H 18 116/79 100 Room Air 09/21/23 03:40 09/21/23 03:40 09/21/23 03:40 09/21/23 03:40 09/21/23 03:40 09/21/23 03:40 Oxygen Delivery Method Room Air Weight: 83 kg Body Mass Index (BMI) 26.2 Intake & Output: Intake and Output for Last 24 Hours 09/19/23 09/20/23 09/21/23 23:59 23:59 23:59 Intake Total 1300 / 1300 1350 / 1350 Balance 1300 / 1300 1350 / 1350 Lab / Micro Data 09/21/23 05:56 09/21/23 05:56 Labs: Laboratory Results - last 24 hr 09/20/23 17:40: WBC 9.4, RBC 3.96 L, Hgb 11.3 L, Hct 33.6 L, MCV 84.8, MCH 28.5, MCHC 33.6, RDW Std Deviation 41.6, RDW Coeff of Elysia 13.4, Plt Count 173, MPV 11.8, Immature Gran % (Auto) 0.400, Neut % (Auto) 80.7 H, Lymph % (Auto) 10.4 L, [place] % (Auto) 8.0, Eos % (Auto) 0.3, Baso % (Auto) 0.2, Absolute Neuts (auto) 7.6, Absolute Lymphs (auto) 0.98, Nucleated RBC % 0, Sodium 136, Potassium 3.4 L , Chloride 104, Carbon Dioxide 23.0, Anion Gap 9, BUN 7, Creatinine 0.54 L, Estim Creat Clear Calc 184.00, Est GFR (MDRD) Af Amer 214, Est GFR (MDRD) Non-Af 177, BUN/Creatinine Ratio 13.0, Glucose 94, Calcium 8.7, Total Bilirubin 1.00, AST 29, ALT 41, Alkaline Phosphatase 52, Total Protein 7.0, Albumin 3.1 L, Globulin 3.9, Albumin/Globulin Ratio 0.8 L, Lipase 14 09/21/23 05:56: WBC 6.9, RBC 3.70 L, Hgb 10.2 L, Hct 31.8 L, MCV 85.9, MCH 27.6, MCHC 32.1, RDW Std Deviation 42.5, RDW Coeff of Elysia 13.6, Plt Count 161, MPV 12.9 H, Immature Gran % (Auto) 0.400, Neut % (Auto) 75.6 H, Lymph % (Auto) 13.1 L, [place] % (Auto) 10.1 H, Eos % (Auto) 0.7, Baso % (Auto) 0.1, Absolute Neuts (auto) 5.2, Absolute Lymphs (auto) 0.91, Nucleated RBC % 0, Sodium 138, Potassium 4.2, Chloride 110 H, Carbon Dioxide 22.0, Anion Gap 6, BUN 6 L, Creatinine 0.46 L, Estim Creat Clear Calc 216.00, Est GFR (MDRD) Af Amer 258, Est GFR (MDRD) Non-Af 213, BUN/Creatinine Ratio 13.0, Glucose 89, Calcium 8.3 L, Phosphorus 3.1, Magnesium 2.3, Total Bilirubin 0.70, AST 23, ALT 28, Alkaline Phosphatase 44 L, Total Protein 6.2 L, Albumin 2.6 L, Globulin 3.6, Albumin/Globulin Ratio 0.7 L, TSH 1.56 Micro: Microbiology 09/20/23 23:25 Stool Stool Lactoferrin - Final 09/20/23 23:25 Stool Enteric Bacteriology - Final 09/20/23 23:25 Stool Clostridioides difficile (PCR) - Final 09/20/23 20:43 Mucosa - Nose SARS-CoV-2, Influenza & RSV (PCR) - Final Radiography Diagnostic Testing: Radiology Impression Abdomen/Pelvis CT 09/20/23 18:15 IMPRESSION: Low-density mass in the pelvis arising off of the distal sigmoid colon. There is thickening the wall the adjacent colon is uncertain whether this represents focal colitis or developing abscess or a colon mass. There is inflammation in the surrounding mesentery with thickening of the wall and terminal ileum. There is no free air identified. Further evaluation with colonoscopy may be beneficial. Electronically Signed: Glen Baptiste MD at 18:43 EST , Physical Exam Const alert, oriented x3, no apparent distress and average body habitus Constitutional Narrative: Middle-aged, white male, sitting up in bed watching television, currently appears comfortable, nontoxic appearing HEENT head/scalp atraumatic and moist oral mucous membranes HEENT Narrative: Dentition is good, Mallampati is 2, no thrush Head and Scalp: normocephalic Resp normal respiratory effort, no retractions, no use of accessory muscles and clear to auscultation bilaterally Auscultation: Negative for rales, rhonchi or wheezes Cardio regular rate, regular rhythm, S1 normal heart sound, S2 normal heart sound, no murmurs, no rub, no gallops and no clicks GI normal to inspection, nondistended, normoactive bowel sounds and soft to palpation; Negative for non-tender GI Narrative: Diffuse bilateral lower abdominal tenderness without focal tenderness, upper abdominal palpation is nontender Extremity no clubbing, cyanosis or edema Extremity Narrative: Pedal pulses are 2+, patient has swelling at the wrists bilaterally and MCP, PJP Skin Skin Narrative: No rashes are noted Neuro oriented x3, moves all extremities and no focal motor deficits Speech: speech normal Psych affect normal Psych Narrative: Very pleasant, interacts appropriately Assessment & Plan Assessment/Plan (1) Abnormal CAT scan: (2) Weight loss, non-intentional: (3) Hypokalemia due to excessive gastrointestinal loss of potassium: (4) Polyarthropathy: PLAN: Plan Pelvic mass -Differential was focal colitis versus abscess versus malignancy -Continue IV fluids -Discontinue ceftriaxone and transition to ciprofloxacin -Continue Flagyl -As needed pain medication -As needed antiemetics if needed -CEA is pending -General surgery consultation for recommendations ongoing Chronic abdominal pain/diarrhea -Enteric panel pending -C. 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 -Ongoing outpatient workup as previously recommended -He states rheumatology thinks what ever is going on is an abdomen is the cause of his polyarthropathy Unintentional weight loss -Patient states he is lost about 30 pounds since June 2023 -This increases my concern for malignancy versus another wasting disease -Dietary consult -Suspected severe malnutrition -Add supplements Family history of Crohn's disease -Sister has Crohn's -Interestingly patient was on prednisone and actually got worse and I would expect if he does have inflammatory bowel disease that steroids would improve his condition -Will check sed rate CRP -May need GI input depending on general surgery's recommendations Hypertension -Continue home amlodipine/valsartan -As needed hydralazine DVT prophylaxis -Subcu heparin 3 times daily CODE STATUS Full code Charges/Coding Visit Charges Inpatient E&M: 74091 Subs Hosp L2
[2023-09-21] MEDS: Multivitamins,Therapeutic Tablet 1 TABLET PO (08:31)
[2023-09-21] MEDS: Ensure Clear 120 ML Liquid PO ×3 (08:34→17:19)
[2023-09-21 08:40] LABS: Erythrocyte Sedimentation Rate 35 mm/hr (0-20)
[2023-09-21 08:45] VITALS: BP 102/68; PULSE 107; RESP 16; TEMP 36.6; O2SAT 96
--- NOTE | 2023-09-21 08:49 | CON.PCM.SX_ITS ---
Assessment & Plan Assessment/Plan (1) Focal active colitis: PLAN: Unsure if the patient has colitis versus an inflammatory mass of the co gerald. The CT was reviewed and it appears that it is in the distal sigmoid and the lumen appears visible. I do not believe he is obstructed. I would like to bowel prep him and perform a colonoscopy for biopsies tomorrow. Given the fact that he has a 30 pound weight loss and has been feeling like he has constipation that lets go and release is these are all worrisome for near obstructing colon mass instead of a colitis. The patient does have elevated CRP and ESR but he is also being treated for possible rheumatoid arthritis in his hands. 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 Patient has never had a colonoscopy in the past. I explained this to him in detail and I will gently bowel prep from throughout the day today. I explained endoscopy in detail to the patient. I explained the risks including but not limited to stroke or heart attack with anesthesia, perforation of the GI tract, bleeding, infection. I explained that any of these could necessitate further emergency surgery. The patient understands and all questions were answered sufficiently. The patient wishes to proceed with procedure. Ac Gabriel MD Pager: [facility] [address] [place] [address], [address] [place] [address] Office: HPI Consult Data Date of Consult: 09/21/23 HPI Narrative HPI Narrative: ISMAEL BOLAND, is a 43 M who presents with abdominal pain. The patient has been having the feeling of bloating and he has been having 30 pounds of weight loss since June. He reports that his stools are on and off constipated. He does not note any blood in his stool. He is passing flatus. He does not have any nausea or vomiting. He says he became more painful about 2 days ago and this was brought into the emergency room. He says he had a fever at home. He has never had a colonoscopy. He has a sister with Crohn's disease but does not have family history of colon cancer. He has been seeing rheumatology for his swollen joints and wrist and his CRP and ESR are both elevated. [facility] Medical History HTN (hypertension) Home Medications amlodipine 5 mg-valsartan 320 mg tablet 1 tab PO DAILY 09/20/23 [History Last Taken Unknown] multivitamin 1 tab PO DAILY 09/20/23 [History Last Taken Unknown] Allergy/AdvReac Type Severity Reaction Status Date / Time No Known Allergies Allergy Verified 09/20/23 17:02 Family History Mother Cancer Father Li's palsy Grandfather CVA (cerebral vascular accident) Surgical History H/O: vasectomy Social History household members: family housing: house number of children: 2 current occupational status: employed Smoking Status: Former smoker ROS ENT HEENT: Denies abnormal hearing Cardiovascular Cardiovascular: Denies chest pain Respiratory/Chest Respiratory/Chest: Denies cough or dyspnea Gastrointestinal Gastrointestinal: Reports abdominal pain, constipation and diarrhea; Denies nausea or vomiting Genitourinary Genitourinary: Denies change in urinary stream Musculoskeletal Musculoskeletal: Denies abnormal gait Integumentary Integumentary: Denies new lesions Neurologic Neurologic: Denies abnormal gait Psychiatric Psychiatric: Denies anxiety Endocrine Endocrinology: Denies heat intolerance Physical Exam Const alert and oriented x3 HEENT normocephalic Eyes PERRL Lymph Lymphatic: no lymphadenopathy noted Resp normal respiratory effort Cardio Rate: regular rate Rhythm: regular rhythm GI soft to palpation Palpation: tender LLQ Lab / Micro Data 09/21/23 05:56 09/21/23 05:56 Labs: Laboratory Results - last 24 hr 09/20/23 17:40: WBC 9.4, RBC 3.96 L, Hgb 11.3 L, Hct 33.6 L, MCV 84.8, MCH 28.5, MCHC 33.6, RDW Std Deviation 41.6, RDW Coeff of Elysia 13.4, Plt Count 173, MPV 11.8, Immature Gran % (Auto) 0.400, Neut % (Auto) 80.7 H, Lymph % (Auto) 10.4 L, [place] % (Auto) 8.0, Eos % (Auto) 0.3, Baso % (Auto) 0.2, Absolute Neuts (auto) 7.6, Absolute Lymphs (auto) 0.98, Nucleated RBC % 0, Sodium 136, Potassium 3.4 L , Chloride 104, Carbon Dioxide 23.0, Anion Gap 9, BUN 7, Creatinine 0.54 L, Estim Creat Clear Calc 184.00, Est GFR (MDRD) Af Amer 214, Est GFR (MDRD) Non-Af 177, BUN/Creatinine Ratio 13.0, Glucose 94, Calcium 8.7, Total Bilirubin 1.00, AST 29, ALT 41, Alkaline Phosphatase 52, Total Protein 7.0, Albumin 3.1 L, Globulin 3.9, Albumin/Globulin Ratio 0.8 L, Lipase 14 09/21/23 05:56: WBC 6.9, RBC 3.70 L, Hgb 10.2 L, Hct 31.8 L, MCV 85.9, MCH 27.6, MCHC 32.1, RDW Std Deviation 42.5, RDW Coeff of Elysia 13.6, Plt Count 161, MPV 12.9 H, Immature Gran % (Auto) 0.400, Neut % (Auto) 75.6 H, Lymph % (Auto) 13.1 L, [place] % (Auto) 10.1 H, Eos % (Auto) 0.7, Baso % (Auto) 0.1, Absolute Neuts (auto) 5.2, Absolute Lymphs (auto) 0.91, Nucleated RBC % 0, ESR 35 H, Sodium 138, Potassium 4.2, Chloride 110 H, Carbon Dioxide 22.0, Anion Gap 6, BUN 6 L, Creatinine 0.46 L, Estim Creat Clear Calc 216.00, Est GFR (MDRD) Af Amer 258, Est GFR (MDRD) Non-Af 213, BUN/Creatinine Ratio 13.0, Glucose 89, Calcium 8.3 L, Phosphorus 3.1, Magnesium 2.3, Total Bilirubin 0.70, AST 23, ALT 28, Alkaline Phosphatase 44 L, C-React Prot Ext Range 118.00 H, Total Protein 6.2 L, Albumin 2.6 L, Globulin 3.6, Albumin/Globulin Ratio 0.7 L, TSH 1.56 Micro: Microbiology 09/20/23 23:25 Stool Stool Lactoferrin - Final 09/20/23 23:25 Stool Enteric Bacteriology - Final 09/20/23 23:25 Stool Clostridioides difficile (PCR) - Final 09/20/23 20:43 Mucosa - Nose SARS-CoV-2, Influenza & RSV (PCR) - Final Imaging Radiology Impression Abdomen/Pelvis CT 09/20/23 18:15 IMPRESSION: Low-density mass in the pelvis arising off of the distal sigmoid colon. There is thickening the wall the adjacent colon is uncertain whether this represents focal colitis or developing abscess or a colon mass. There is inflammation in the surrounding mesentery with thickening of the wall and terminal ileum. There is no free air identified. Further evaluation with colonoscopy may be beneficial. Electronically Signed: Glen Baptiste MD at 18:43 EST ,
[2023-09-21] MEDS: Lactated Ringers 1,000 ML 75 ML IV ×2 (08:54→22:33)
[2023-09-21] MEDS: Ciprofloxacin 400 MG/200 ML BAG 200 MG IV ×2 (09:47→23:56)
[2023-09-21] MEDS: Bisacodyl 5 MG Tablet 20 MG PO (09:47)
[2023-09-21] MEDS: Polyethylene Glycol 3350 BOWEL PREP 1 BOTTLE PO (10:58)
[2023-09-21 11:20] VITALS: BP 120/84; PULSE 102; RESP 16; TEMP 36.4; O2SAT 97
[2023-09-21 15:16] VITALS: BP 108/76; PULSE 111; RESP 16; TEMP 36.8; O2SAT 96
[2023-09-21 22:08] VITALS: BP 112/78; PULSE 103; RESP 18; TEMP 36.8; O2SAT 95
[2023-09-22] VITALS (8 sets, daily range): BP systolic 104–137; BP diastolic 71–98; PULSE 91–106; RESP 16–18; TEMP 34.4–37.1; O2SAT 95–100; BMI 26.2
--- NOTE | 2023-09-22 | COLBX_PTH ---
PATIENT: ISMAEL BOLAND LOC: MS3 U#:[id number] AGE/SX: 43/M ROOM: AL318 RE09/20/[address]: Dr. Alex Vick MD : 1980 BED: 1 DIS: 09/22/2023 SPEC #: [id number] RECD: 09/22/23 11:33 STATUS: ELVIS CRYSTAL #: [id number] ALMITA: 09/22/23 00:[address]: Ac Gabriel DEPT: SURGICAL PATHOLOGY RECD BY: Leslie Ritchie ENTERED: 09/22/23 12:19 SP TYPE: COLON BX OTHR DR: MD Dr. Alex Thomas DO Dr. David Kittoe, MD Dr. Kathryn Lee, Tissues: A - Sigmoid colon biopsy B - Ileum, NOS C - Sigmoid colon biopsy D - Rectum, NOS Procedures: Frozen Section (charge) Special Stain Group II Mucicarmine Stain (control) Surgery Specimen Level IV HEADER OPERATION: Colonoscopy, polypectomy, biopsy PRE-OP DIAGNOSIS: Colon mass TISSUE SUBMITTED: A - Sigmoid mass biopsy, frozen section, B - Terminal ileum biopsy, C - Sigmoid mass biopsy, D - Rectal polyp FROZEN SECTION DIAGNOSIS A. Sigmoid colon mass, biopsy: Poorly differentiated carcinoma. AM: 09/22/2023 Case has been reviewed in consultation with Dr. Green who concurs with the above diagnosis. IDC:SJ MICROSCOPIC DIAGNOSIS A. Sigmoid colon mass, biopsy: Invasive poorly differentiated adenocarcinoma. B. Terminal ileum, biopsy: No pathologic change. C. Sigmoid colon mass, biopsy: Invasive poorly differentiated adenocarcinoma. See comment. D. Rectal polyp, biopsy: Fragments of tubular adenoma. AM: 09/24/2023 COMMENT C. Immunohistochemistry ([id number]) supports the above diagnosis. Mucin stain with matched control was used in the evaluation of this case and is positive in tumor cells Case has been reviewed in consultation with Dr. Green who concurs with the above diagnosis. IDC:SJ MICROSCOPIC DESCRIPTION Slides are reviewed. GROSS DESCRIPTION A - Received fresh for frozen section diagnosis labeled with the patient's name is a specimen designated sigmoid colon mass biopsy. The specimen consists of two irregular fragments of gomez soft tissue that in aggregate measure 0.4 x 0.2 x 0.1 cm. The specimen is totally submitted in one cassette. / :gayle 09/22/2023 B - Received in fixative is one container labeled with the patient's name and designated terminal ileum biopsy. The specimen consists of multiple irregular fragments of light gomez soft tissue that in aggregate measure 0.6 x 0.3 x 0.1 cm. The specimen is totally submitted in one cassette. / :gayle 09/23/2023 C - Received in fixative is one container labeled with the patient's name and designated sigmoid mass biopsy. The specimen consists of multiple irregular fragments of light gomez soft tissue that in aggregate measure 1.5 x 0.3 x 0.1 cm. The specimen is totally submitted in one cassette. / :gayle 09/23/2023 D - Received in fixative is one container labeled with the patient's name and designated rectal polyp. The specimen consists of multiple irregular fragments of light gomez soft tissue that in aggregate measure 0.5 x 0.5 x 0.1 cm. The specimen is totally submitted in one cassette. / SJ:gayle 09/23/2023 TC:0 CPT: 69349 x4, 49923, 42195
--- NOTE | 2023-09-22 | IMM_PTH ---
PATIENT: ISMAEL BOLAND LOC: MS3 U#:[id number] AGE/SX: 43/M ROOM: IA318 RE09/20/[address]: Dr. Alex Vick MD : 1980 BED: 1 DIS: 09/22/2023 SPEC #: [id number] RECD: 09/24/23 14:10 STATUS: ELVIS REQ #: [id number] ALMITA: 09/22/23 00:[address]: Ac Gabriel DEPT: IMMUNOHISTOCHEMISTRY RECD BY: Leslie Ritchie ENTERED: 09/24/23 14:14 SP TYPE: IMMUNO OTHR DR: MD Dr. Alex Thomas, DO MD Dr. Minal Valerio, DO Tissues: C - Sigmoid colon biopsy Procedures: Synapto (add) RCC (add) MSH2 (add) MLH-1 (add) MSH6 (add) Anti-PMS2 (add) NAPSIN A (add) CD56 (add) CHROMO (add) CK20 (add) CK7 (add) CK8 (add) HEP PAR (add) KI-67 (add) P53 (add) TTF1 (add) 34BE12 (add) Pankeratin (initial) GATA3 (add) CDX2 (add) NSE (add) S-100 (add) PHYSICIAN & INSTITUTION [address] [address] SPECIMEN INFORMATION: Tissue Source: C - Rectal polyp Clinical Info: Colon mass Specimen Number: [id number] CPT code: 12676, 01372 x22 METHODOLOGY: Deparaffinized sections of prefer/formalin-fixed tissue or PAP/DQ stained slides are incubated with monoclonal/polyclonal antibodies/oligonucleotide probes. Localization is made via biotin free immunoperoxidase method. Appropriate controls are performed and reacted as expected. Results on target cell population are indicated in the following table: RESULTS: ANTIBODY / CLONE RESULT Block C AE1-3 (AE1/AE3/PCK26) positive GATA3 (L50-823) negative CK7 (OV-TL12/30) negative CK8 (22raeqY16) positive CK20 (KS20.8) positive CDX2 (IVK7071P) positive 34BE12 (34BE12) negative S-100 (4C4.9) negative CD56 (123C3.D5) negative Chromo (LK2H10) negative Synapto (polyclonal) negative NSE Neuron Specific Enolase negative TTF-1 (8G7G3/1) negative Napsin A (Rabbit Polyclonal) negative HepPar (OCh1E5) negative RCC (PN-15) negative P40 (BC28) negative MLH-1 (M1) positive MSH2 (25D12) positive MSH6 (44) positive PMS2 (ANV2083) positive Ki-67 (30-9) positive, >90% P53 (DO-7) positive, missense type These tests were developed and their performance characteristics determined by [facility]. They may not have been cleared or approved by the U.S. Food and Drug Administration. The FDA has determined that such clearance or approval is not necessary. The above immunohistochemical/dualISH markers are ordered and reviewed by the Pathologist. INTERPRETATION: C. Sigmoid mass, biopsy: Invasive poorly differentiated adenocarcinoma. Result of Microsatellite Instability Study: Negative (no loss of mismatch protein; no microsatellite instability detected). AM:gayle 09/25/2023
--- NOTE | 2023-09-22 05:00 | EKG12_ITS ---
Test Reason : AM EKG Blood Pressure : / mmHG Vent. Rate : 103 BPM Atrial Rate : 103 BPM P-R Int : 210 ms QRS Dur : 086 ms QT Int : 344 ms P-R-T Axes : 042 050 022 degrees QTc Int : 450 ms Sinus tachycardia with 1st degree A-V block Otherwise normal ECG No previous ECGs available Confirmed by Milton Hilario ([id number]), publishing editor ESTER HALEY ([id number]) on 09/23/2023 7:50:16 AM Referred By: MAN Confirmed By:Milton Hilario
[2023-09-22] MEDS: metroNIDAZOLE 500 MG/100 ML BAG 100 MG IV ×2 (06:14→14:51)
[2023-09-22 06:28] LABS: Absolute Lymphocyte Count 1.02 X10^3/uL (0.83-4.51); Absolute Neutrophil Count 3.7 X10^3/uL (2.0-7.7); Basophil# 0.01 X10^3/uL; Basophil% 0.2 % (0-1); Eosinophil# 0.16 X10^3/uL; Eosinophils% 2.9 % (0-5); Hematocrit 31.7 % (40-54); Hemoglobin 10.2 g/dL (13.0-16.5); Lymphocyte # 1.02 X10^3/ul (0.83-4.51); Lymphocyte % 18.5 % (19-41); Mean Corp Hgb Conc 32.2 g/dL (32-36); Mean Corpuscular Hgb 27.4 pg (27.0-32.0); Mean Corpuscular Volume 85.2 fL (80-94); Mean Platelet Vol. 12.8 fl (6.2-12.0); Monocyte# 0.59 X10^3/uL; Monocyte% 10.7 % (0-10); NRBC Flagged by Analyzer 0 % (0-5); Neutrophil # 3.72 X10^3/uL (2.7-7.7); Neutrophil % 67.3 % (47-70); Platelet Count 187 K/mm3 (150-450); RBC Distribution Width CV 13.3 % (11.6-14.6); RBC Distribution Width SD 41.4 fl (35.1-43.9); Red Blood Count 3.72 M/mm3 (4.6-6.2); White Blood Count 5.5 K/mm3 (4.4-11.0)
[2023-09-22 06:36] LABS: International Normalized Ratio 1.1; Partial Thromboplast Time 40.6 Seconds (24.1-36.2); Prothrombin Time (Protime)PT. 14.4 SECONDS (11.7-14.9)
[2023-09-22 06:40] LABS: Anion Gap 5 (5-15); BUN 2 mg/dL (7-18); Calcium,Total 8.3 mg/dL (8.5-10.1); Chloride 108 mmol/L (98-107); EST Glomerular Filtration Rate 191 mL/min (>60); Est Glom Filt Rate - Afr Amer 232 mL/min (>60); Estimated Creatinine Clearance 198.72 ml/min; Glucose 104 mg/dL (74-106); Potassium 3.3 mmol/L (3.5-5.1); Sodium Level 139 mmol/L (136-145)
--- NOTE | 2023-09-22 08:57 | PCM.PN.HOSP ---
Reason for Visit Reason for Visit: Diagnoses Hypokalemia (09/20/23) Noninfective gastroenteritis and colitis, unspecified (09/20/23) Polyarthritis, unspecified (09/20/23) Generalized abdominal pain (09/20/23) Diarrhea, unspecified (09/20/23) Abnormal weight loss (09/20/23) Abnormal findings on diagnostic imaging of other specified body structures (09/20/23) Subjective Subjective Patient is a 43-year-old gentleman who presented to the emergency department with abdominal pain with a 30 pound weight loss with subjective fevers. CT demonstrated a pelvic mass admitted to regular nursing floor for further management Objective Data Objective Data Vital Signs: Vital Signs Temp Pulse Resp BP Pulse Ox O2 Del Method 97.8 F 99 16 117/71 95 Room Air 09/22/23 08:00 09/22/23 08:00 09/22/23 08:00 09/22/23 08:00 09/22/23 08:00 09/22/23 08:00 Oxygen Delivery Method Room Air Weight: 83.2 kg Body Mass Index (BMI) 26.2 Intake & Output: Intake and Output for Last 24 Hours 09/20/23 09/21/23 09/22/23 23:59 23:59 23:59 Intake Total 1300 / 1300 4473.75 / 4473.75 1008.75 / 1008.75 Balance 1300 / 1300 4473.75 / 4473.75 1008.75 / 1008.75 Lab / Micro Data 09/22/23 05:15 09/22/23 05:15 Labs: Laboratory Results - last 24 hr 09/22/23 05:15: WBC 5.5, RBC 3.72 L, Hgb 10.2 L, Hct 31.7 L, MCV 85.2, MCH 27.4, MCHC 32.2, RDW Std Deviation 41.4, RDW Coeff of Elysia 13.3, Plt Count 187, MPV 12.8 H, Immature Gran % (Auto) 0.400, Neut % (Auto) 67.3, Lymph % (Auto) 18.5 L, [place] % (Auto) 10.7 H, Eos % (Auto) 2.9, Baso % (Auto) 0.2, Absolute Neuts (auto) 3.7, Absolute Lymphs (auto) 1.02, Nucleated RBC % 0, PT 14.4, INR 1.1, APTT 40.6 H, Sodium 139, Potassium 3.3 L, Chloride 108 H, Carbon Dioxide 26.0, Anion Gap 5, BUN 2 L, Creatinine 0.50 L, Estim Creat Clear Calc 198.72, Est GFR (MDRD) Af Amer 232, Est GFR (MDRD) Non-Af 191, BUN/Creatinine Ratio 4.0 L, Glucose 104, Calcium 8.3 L Micro: Microbiology 09/20/23 23:25 Stool Stool Lactoferrin - Final 09/20/23 23:25 Stool Enteric Bacteriology - Final 09/20/23 23:25 Stool Clostridioides difficile (PCR) - Final 09/20/23 20:43 Mucosa - Nose SARS-CoV-2, Influenza & RSV (PCR) - Final Physical Exam Narrative GENERAL: cooperative HEENT: Atraumatic; normocephalic EYES; Anicteric, Normal Conjunctiva NECK; supple, normal thyroid, RESPIRATORY: Diminished to auscultation CARDIOVASCULAR: Regular S1 S2, GI: soft, normoactive bowel sounds, : No Renal angle tenderness; EXTREMITIES: No edema, no clubbing, MUSCULOSKELETAL: no muscle wasting NEURO: Awake; no lateralizing signs. SKIN: No Rash PSYCH; Flat affect Assessment & Plan Assessment/Plan (1) Abnormal CAT scan: (2) Weight loss, non-intentional: (3) Hypokalemia due to excessive gastrointestinal loss of potassium: (4) Polyarthropathy: PLAN: Plan Patient is a 43-year-old gentleman who presented to the emergency department with abdominal pain with a 30 pound weight loss with subjective fevers. CT demonstrated a pelvic mass admitted to regular nursing floor for further management 1. Pelvic mass CT of the abdomen did show low-density mass in the pelvis arising off of the distal sigmoid colon. There is thickening the wall the adjacent colon is uncertain whether this represents focal colitis or developing abscess or a colon mass. There is inflammation in the surrounding mesentery with thickening of the wall and terminal ileum. There is no free air identified. Patient was started on antibiotics for suspected focal colitis. Consult placed to general surgery patient seen by Dr. Gabriel with plans for patient to undergo colonoscopy for further management 2. 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 Ongoing outpatient workup as previously recommended 4. Hypertension - Blood pressure controlled, home medications continued with dose adjustment as needed 5. DVT prophylaxis -Subcu heparin 3 times daily Time spent in the patient's overall evaluation,decision-making process, review of diagnostic data, adjustment of management, discussion with other providers, nursing nursing and ancillary staff involved in patient's care documentation,35 Minutes Charges/Coding Visit Charges Inpatient E&M: 78115 Subs Hosp L2
[2023-09-22] MEDS: Potassium Chloride 10mEq/100mL 10 MEQ/100 ML IV.SOLN. 100 MEQ IV BOLUS ×2 (09:36→12:24)
--- NOTE | 2023-09-22 11:37 | OP.CCLET_ITS ---
09/22/2023 Timoteo Jara [address] [place] [address] Re : Colonoscopy procedure for Branden Humphreys Dear Dr. Jara This procedure was performed on Friday, September 22, 2023. My impressions and recommendations are as follows: Impressions : - One small polyp in the rectum, removed with a hot snare. Resected and retrieved. 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 Biopsied. - Biopsies were taken with a cold forceps for histology in the terminal ileum. Recommendations : - [facility]. - No recommendation at this time regarding repeat colonoscopy. - Continue present medications. My findings are described in the full procedure note, which is enclosed. If I can be of further assistance, please feel free to contact me at Doctor phone number(s): , Work: . Sincerely, Ac Gabriel MD 09/22/2023 11:36:42 AM This report has been signed electronically.
--- NOTE | 2023-09-22 11:37 | OP.COLON_ITS ---
Patient Name: Branden Humphreys Procedure Date: 09/22/2023 10:48 AM Date of : 1980 Age: 43 Procedure: Colonoscopy Indications: Suspected cancer of the sigmoid colon Providers: Ac Gabriel MD Medicines: Monitored Anesthesia Care Patient Profile: Last Colonoscopy: none. The patient's first colonoscopy is today. Complications: No immediate complications. Estimated blood loss: Minimal. Procedure: Pre-Anesthesia Assessment: - Prior to the procedure, a History and Physical was performed, and patient medications and allergies were reviewed. The patient's tolerance of previous anesthesia was also reviewed. The risks and benefits of the procedure and the sedation options and risks were discussed with the patient. All questions were answered, and informed consent was obtained. Prior Anticoagulants: The patient has taken no anticoagulant or antiplatelet agents. After reviewing the risks and benefits, the patient was deemed in satisfactory condition to undergo the procedure. After I obtained informed consent, the scope was passed under direct vision. Throughout the procedure, the patient's blood pressure, pulse, and oxygen saturations were monitored continuously. The pediatric colonoscope was introduced through the anus and advanced to the cecum, identified by the ileocecal valve. The colonoscopy was performed without difficulty. The patient tolerated the procedure well. The quality of the bowel preparation was good. The terminal ileum, ileocecal valve, appendiceal orifice, and rectum were photographed. Scope In: 11:04:18 AM Scope Withdrawal Time 0 hours 10 minutes 35 seconds Scope Out: 11:29:40 AM Total Procedure Duration Time 0 hours 25 minutes 22 seconds Findings: A small polyp was found in the rectum. The polyp was removed with a hot snare. Resection and retrieval were complete. Biopsies were taken with a cold forceps in the terminal ileum for histology. A partially obstructing large mass was found in the distal sigmoid colon. The mass was circumferential. No bleeding was present. This was biopsied with a cold forceps for histology. Impression: - One small polyp in the rectum, removed with a hot snare. Resected and retrieved. 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 Biopsied. - Biopsies were taken with a cold forceps for histology in the terminal ileum. Recommendation: - Return patient to [facility] for ongoing care. - No recommendation at this time regarding repeat colonoscopy. - Continue present medications. Procedure Code(s): --- Professional --- 15454, Colonoscopy, flexible; with removal of tumor(s), polyp(s), or other lesion(s) by snare technique 62248, 59, Colonoscopy, flexible; with biopsy, single or multiple Diagnosis Code(s): --- Professional --- D12.8, Benign neoplasm of rectum D49.0, Neoplasm of unspecified behavior of digestive system K56.690, Other partial intestinal obstruction CPT copyright 2021 [employer]. All rights reserved. The codes documented in this report are preliminary and upon mapping editor review may be revised to meet current compliance requirements. Ac Gabriel MD 09/22/2023 11:36:42 AM This report has been signed electronically. Number of Addenda: 0 Note Initiated On: 09/22/2023 10:48 AM
--- NOTE | 2023-09-22 12:09 | PN_ITS ---
Progress Note I performed a colonoscopy in the patient and that he does have a colon mass which was confirmed as cancer on frozen section by pathology. There was concern that this was ingrowing from another area by pathology. I did discuss this with the pathologist. The mass is circumferential and appeared to be stenotic and almost obstructing. There were cancerous poorly differentiated cells and I will wait on immunohistochemistry. The mass is too low for me to take out here and I would recommend that he have colorectal surgeon remove the mass. I am a ttempting to reach the colorectal surgeon in [facility] to discuss with him. I will order full liquids. Ac Gabriel MD Pager: [facility] [address] [place] [address], [address] [place] [address] Office:
[2023-09-22] MEDS: Lactated Ringers 1,000 ML 75 ML IV (12:24)
[2023-09-22] MEDS: Ciprofloxacin 400 MG/200 ML BAG 200 MG IV (13:30)
--- NOTE | 2023-09-22 14:47 | CASEMGMT ---
YUMIKO MALHOTRA Assessment: Face to Face with pt for initial transition planning/care coordination assessment. YUMIKO MALHOTRA introduced self and role at [facility] [place], pt voices understanding and consents to assessment. Pt is A&O x4 and answers all questions appropriately at this time. Pt sitting up in bed in no distress with at bedside. Care providers, pharmacy, and demographics verified/updated. Admitting Dx: focal colitis, suspected colon mass and diarrhea PCP:Marek Specialists:Denies ongoing specialists Preferred Pharmacy: [facility] Insurance: [employer] Prescription Benefit: yes LNOK: Regina Humphreys, Living Arrangements: Pt lives with , 2 dtrs and adult family friend in a two story home with 15 steps to enter with a rail. Pt reports he is I in ADL's and denies concerns at home. Transportation: Pt has only been driving short distances d/t pain in his wrists. Pt provides transportation otherwise. DME:denies HHC/SNF: denies hx of Pt states no concerns with going home at time of dc. Pt states no further concerns/needs. CM to follow. Advised pt to ask CM if any further question/concerns/needs arise, voices understanding. Pt Goal: Home Plan: Home Parminder CALDERON CM
--- NOTE | 2023-09-22 16:01 | CASEMGMT ---
Insurance review for hospitals In-network with [place] insurance if transfer is recommended is as follows:?[facility], Daniela, [facility], [facility], [facility], [facility], [facility] ([facility]), and . Rani Alston, Discharge Planning Asst.
--- NOTE | 2023-09-22 16:04 | DS.PCM_ITS ---
Providers Date of Admission: 09/20/23 Date of Discharge: 09/22/23 Primary Care Physician: Dr. Timoteo Jara MD Consultations 09/21/23 02:45 Consult: General Surgery Routine Consulting Provider: Ac Gabriel Reason for Consult: concern for malignancy of colon EMERGENT Consult: No MD Notified: Yes Date Notified: 09/20/23 Time Notified: 17:47 Method of Notification: ED Physician Initiated Reason For Visit: FOCAL COLITIS, SUSPECTED COLON MASS AND DIARRHEA Diagnosis Discharge Diagnosis (1) Abnormal CAT scan: Status: Acute Code(s): R93.89 - Abnormal findings on diagnostic imaging of other specified body structures (2) Weight loss, non-intentional: Status: Acute Code(s): R63.4 - Abnormal weight loss (3) Hypokalemia due to excessive gastrointestinal loss of potassium: Status: Acute Code(s): E87.6 - Hypokalemia (4) Polyarthropathy: Status: Acute Code(s): M13.0 - Polyarthritis, unspecified Plan Patient is a 43-year-old gentleman who presented to the emergency department with abdominal pain with a 30 pound weight loss with subjective fevers. CT demonstrated a pelvic mass admitted to regular nursing floor for further management 1. Pelvic mass CT of the abdomen did show low-density mass in the pelvis arising off of the distal sigmoid colon. There is thickening the wall the adjacent colon is uncertain whether this represents focal colitis or developing abscess or a colon mass. There is inflammation in the surrounding mesentery with thickening of the wall and terminal ileum. There is no free air identified. Patient was started on antibiotics for suspected focal colitis. Consult placed to general surgery patient seen by Dr. Gabriel with plans for patient to undergo colonoscopy for further management -Patient underwent colonoscopy by Dr. Gabriel findings - One small polyp in the rectum, removed with a hot snare. Resected and retrieved. 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 Biopsied. - Biopsies were taken with a cold forceps for histology in the terminal ileum. Based on above patient was discharged with follow-up set up with colorectal surgery Dr. Espinoza. Patient was discharged on boost as well as clear liq uid to his seen and evaluated 2. 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 Ongoing outpatient workup as previously recommended 4. Hypertension - Blood pressure controlled, home medications continued with dose adjustment as needed 5. DVT prophylaxis -Subcu heparin 3 times daily Time spent in the patient's overall evaluation,decision-making process, review of diagnostic data, adjustment of management, discussion with other providers, nursing nursing and ancillary staff involved in patient's care documentation,35 Minutes Medications at Discharge Home Medications amlodipine 5 mg-valsartan 320 mg tablet 1 tab PO DAILY 09/20/23 multivitamin 1 tab PO DAILY 09/20/23 nutritional supplements 0.09 gram-0.5 kcal/mL oral liquid (Boost Max) 325 ml PO BID 30 days #19,500 mL 09/22/23 Hospital Course Procedures Colonoscopy Summary of Care Provided Minutes Spent on Discharge: 35 Physical Exam Narrative GENERAL: cooperative HEENT: Atraumatic; normocephalic EYES; Anicteric, Normal Conjunctiva NECK; supple, normal thyroid, RESPIRATORY: Diminished to auscultation CARDIOVASCULAR: Regular S1 S2, GI: soft, normoactive bowel sounds, : No Renal angle tenderness; EXTREMITIES: No edema, no clubbing, MUSCULOSKELETAL: no muscle wasting NEURO: Awake; no lateralizing signs. SKIN: No Rash PSYCH; Flat affect Weight / BMI Weight Weight: 83.2 kg Body Mass Index (BMI) 26.2 ABG / Lab / Microbiology Data 09/22/23 05:15 09/22/23 05:15 Laboratory: Laboratory Results - last 24 hr 09/22/23 05:15: WBC 5.5, RBC 3.72 L, Hgb 10.2 L, Hct 31.7 L, MCV 85.2, MCH 27.4, MCHC 32.2, RDW Std Deviation 41.4, RDW Coeff of Elysia 13.3, Plt Count 187, MPV 12 .8 H, Immature Gran % (Auto) 0.400, Neut % (Auto) 67.3, Lymph % (Auto) 18.5 L, [place] % (Auto) 10.7 H, Eos % (Auto) 2.9, Baso % (Auto) 0.2, Absolute Neuts (auto) 3.7, Absolute Lymphs (auto) 1.02, Nucleated RBC % 0, PT 14.4, INR 1.1, APTT 40.6 H, Sodium 139, Potassium 3.3 L, Chloride 108 H, Carbon Dioxide 26.0, Anion Gap 5, BUN 2 L, Creatinine 0.50 L, Estim Creat Clear Calc 198.72, Est GFR (MDRD) Af Amer 232, Est GFR (MDRD) Non-Af 191, BUN/Creatinine Ratio 4.0 L, Glucose 104, Calcium 8.3 L Microbiology: Microbiology 09/20/23 23:25 Stool Stool Lactoferrin - Final 09/20/23 23:25 Stool Enteric Bacteriology - Final 09/20/23 23:25 Stool Clostridioides difficile (PCR) - Final 09/20/23 20:43 Mucosa - Nose SARS-CoV-2, Influenza & RSV (PCR) - Final D/C Instructions Discharge Diet: Soft diet (Liquid diet) Meaningful Use Info Meaningful Use Diagnoses (Choose all that apply): None applicable Discharge Plan Admission Admit Date/Time: 09/20/23 20:11 Attending Provider: Alex Vick Primary Care Provider: Timoteo Jara Consulting Providers: Ac Gabriel; Alex Chamorro; Minal Huston Discharge Orders/Prescriptions Prescriptions: New Boost Max 0.09 gram- 0.5 kcal/mL liquid 325 ml PO BID 30 Days Qty: [id number] 0RF Continued amlodipine-valsartan 5-320 mg tablet 1 tab PO DAILY Patient Comments: TAKE ONE TABLET BY MOUTH DAILY multivitamin Tablet 1 tab PO DAILY Referrals / Follow Up: Ac Gabriel MD [Med Staff - Active Staff] - Within 2 Weeks Timoteo Jara MD [Primary Care Provider] - Jim Yates DO [Med Staff - Active Staff] - Within 1 Week Jamie Espinoza MD [Non-Staff] - In 1 Week Disposition Disposition (needs filled in before D/C Order can be placed): Home, Self Care Charges/Coding Visit Charges Inpatient E&M: 22243 Disch Hosp >30min
[2023-09-23 08:12] LABS: Carcinoembryonic Antigen 2.3 ng/mL (0.0-4.7)
== END 2023-09-22 17:26 | disposition home or self-care (01) | DRG 374 ==
LOC: ED 17:56 → MS3 20:22
PROVIDERS: Internal Medicine; Surgery; Admitting Provider Internal Medicine; Emergency Provider Student in an Organized Health Care Education/Training Program; PCP Family Medicine; Visit Provider Internal Medicine
PROC: 0DJD8ZZ Inspection of Lower Intestinal Tract, Via Natural or Artificial Opening Endoscopic (ICD-10-PCS; CPT 45378; principal; 2023-09-22 10:55)
DX: C18.7 Malignant neoplasm of sigmoid colon (principal); K56.690 Other partial intestinal obstruction; I10 Essential (primary) hypertension; K52.9 Noninfective gastroenteritis and colitis, unspecified; E87.6 Hypokalemia; D12.7 Benign neoplasm of rectosigmoid junction; M13.0 Polyarthritis, unspecified; R63.4 Abnormal weight loss; Z87.891 Personal history of nicotine dependence; Z68.26 Body mass index [BMI] 26.0-26.9, adult; Z79.899 Other long term (current) drug therapy; Z83.79 Family history of other diseases of the digestive system
CPT/HCPCS: 45385; 45380; 36415; 74177; 80048; 80053; 82378; 83630; 83690; 83735; 84100; 84443; 85025; 85610; 85652; 85730; 86140; 87177; 87209; 87493; 87506; 87631; 88305; 88313; 88331; 88341; 88342; 93005; 94668; 96361; 96365; 96366; 96367; 96372; 97802; 99221; 99252; 99284; J7030; J7120; Q9967; A4216; G0378; G0463; J0744

== ENCOUNTER 2023-11-05 11:15 | Day surgery (SDC) | payer BC, SELFPAY ==
[2023-11-05 11:36] VITALS: BP 108/68; PULSE 84; RESP 16; TEMP 37; O2SAT 98; BMI 23.3
[2023-11-05] MEDS: Lactated Ringers 1,000 ML 15 ML IV (11:40)
--- NOTE | 2023-11-05 12:20 | HP.PCM_ITS ---
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 Is patient in pain?: No Allergies codeine Allergy (Verified 11/03/23 10:25) Itching Medications amlodipine 5 mg-valsartan 320 mg tablet 1 tab PO DAILY 09/20/23 [History Confirmed 11/03/23] multivitamin 1 tab PO DAILY 09/20/23 [History Confirmed 11/03/23] acetaminophen 500 mg capsule 500 mg PO Q6H 10/31/23 [History Confirmed 11/03/23] calcium polycarbophil 625 mg tablet (Fiber Therapy (ca polycarbophil)) 625 mg PO BID 10/31/23 [History Confirmed 11/03/23] loperamide 2 mg capsule 2 mg PO 4X/DAY 10/31/23 [History Confirmed 11/03/23] ondansetron HCl 4 mg tablet 4 mg PO Q8H PRN nausea and vomiting 10/31/23 [History Confirmed 11/03/23] PFSH Medical History Cancer Former smoker HTN (hypertension) Surgical History H/O: vasectomy History of colectomy History of colostomy Family History Mother CancerFather Li's palsyGrandfather CVA (cerebral vascular accident) Social History household members: family housing: house number of children: 2 current occupational status: employed Smoking Status: Former smoker HPI HPI HPI: Patient is a 43-year-old male here to discuss port placement for rectal cancer. Patient had colectomy in [place]. He is healing well. He is starting chemotherapy next week. ROS General General: Yes fatigue and colon cancer; No weight change, appetite, breast cancer or weakness HEENT HEENT: No difficulty swallowing, eye injury, eye surgery, swollen glands or hoarseness Endo Endocrine: No thyroid disease, diabetes mellitus, thyroid cancer, Hair loss, heat intolerance or cold intolerance Skin Skin: No rash or changing moles Breast Breast: No left breast lump, right breast lump, nipple discharge, breast pain, abnormal mammogram, abnormal US or breast enlargement Musc Musculoskeletal: No back problems, arthritis, rheumatoid arthritis, gout or joint pain Cardio Cardiovascular: No murmur, pacemaker, heart disease, atrial fibrillation, high blood pressure, heart attack, heart stent, palpitations, shortness of breat with exertion or chest pain Psych Psychiatric: No depression, anxiety or hearing voices Resp Respiratory: No shortness of breath, No sleep apnea, No cough, No COPD, No asthma, No emphysema and No wheezing Gastro Gastrointestinal: No abdominal pain, No nausea or vomiting, Yes diarrhea, No constipation, No blood in stool, No acid reflux, No hemorrhoids, No ulcers, No gallbladder problem and No black,tarry stools Anuj Hematologic: No blood thinners, No blood disorders, No bleeding, Yes anemia and No blood clots Neuro Neurologic: No system reviewed and no additional complaints, except as documented, No as per HPI, No abnormal gait, No abnormal hearing, No abnormal movements, No abnormal speech, No behavioral changes, No burning sensations, No confusion, No convulsions, No disequilibrium, No dizziness, No localized weakness, No frequent falls, No headache(s), No lack of coordination, No loss of vision, No memory loss, No numbness, No other visual disturbances, No radicular pain, No restless legs, No sensory deficit, No syncope, No tingling, No tr emor(s), No weakness and No other Exam Const General: cooperative Orientation: alert and oriented x3 HENMT Head: normal to inspection Neck Neck: normal visual inspection and full ROM Chest Chest palpation & inspection: normal inspection of the chest Resp Effort & Inspection: normal respiratory effort Auscultation: clear to auscultation bilaterally Cardio Rate: regular rate Rhythm: regular rhythm GI Inspection: non-distended Palpation: soft and nontender Skin General: no rashes or lesions noted Neuro General: patient alert and patient oriented x3 Extrem General: full ROM Psych Appearance: grossly normal Mental Status: mental status grossly normal Assessment and Plan Assessment and Plan (1) Colon cancer: Status: Acute (2) Encounter for insertion of venous access port: Status: Acute Plan Patient had rectal cancer and had surgery and requires port for chemotherapy. I discussed right chest port placement with him in detail. I discussed the procedure in detail as well as the risks including not limited to bleeding, infection, pneumothorax or line infection or DVT. Patient understands all the risks and is willing to proceed. He was scheduled for Friday. Ac Gabriel MD Pager: [facility] [address] [place] [address], [address] [place] [address] Office: I have examined the patient and the H&P has been reviewed. There are no clinical changes since date of exam.
[2023-11-05] MEDS: Cefazolin 2 GM in 0.9% Normal Saline (100mL Bag) 100 ML IV (12:40)
[2023-11-05] MEDS: Bupivacaine Mpf 0.5% 30 ML VIAL (12:53)
[2023-11-05] MEDS: Lidocaine 1% /Epi 1:100 (20ml) 20 ML Vial (12:53)
--- NOTE | 2023-11-05 13:13 | PCM.OPRPT ---
Report of Operation Date of Procedure: 11/05/23 Pre-Operative Diagnosis: Need for vascular access for chemotherapy Post-Operative Diagnosis: Same Surgery/Procedure Performed:: Ultrasound and fluoroscopy guided right chest port placement utilizing right IJ Type of Anesthesia: Local MAC Specimen's removed: None Estimated Blood Loss (mL): 5 Description of Procedure: After obtaining informed consent patient was brought back to the operating room MAC anesthesia was induced and the right chest and neck were prepped in normal sterile fashion. Ultrasound was used to evaluate both IJs and the right IJ was selected. Next, using a needle, the right IJ was accessed and a guidewire was passed on into the superior vena cava under fluoroscopy guidance. A small incision was made over the puncture site and the dilator introducer was placed over the guidewire. Next this was capped and the pocket was made for the port. 1% lidocaine with epinephrine was injected in the proposed port site. An incision was made with scalpel. Electrocautery was used to make a pocket under the skin and subcutaneous tissue. Hemostasis was obtained. Next, the catheter was tunneled up to the neck incision site and placed through the introducer. The peel-away introducer was removed and the position of the catheter was confirmed on fluoroscopy. Next, the catheter was trimmed and attached to the port with the locking device. Interrupted 2-0 Vicryl sutures were used to anchor the port to the chest wall and then the port was placed inside the pocket. The pocket was then flushed with saline and the port irrigated with saline. There was good blood return and flush when the catheter was outside of the skin but when the port was placed into the pocket it did not flush or draw. X-ray showed that it was in the atrium. The catheter was backed out until it was able to be aspirated and flushed easily and then it was trimmed shorter and reattached to the port.. Next, heparin was injected into the port. The skin was closed with subcutaneous interrupted 3-0 Vicryl sutures. A single 3-0 Vicryl sutures placed under the skin at the neck incision site. Steri-Strips were placed as well as op sites. Patient tolerated procedure well, was taken to PACU in stable condition. Chest x-ray will be obtained. Grafts/Implants Used: 8 Portuguese PowerPort Admit VTE Documentation VTE Mechan Device Prophylaxis: SCD's
[2023-11-05 13:15] VITALS: BP 108/68; BP 119/75; PULSE 87; RESP 16; TEMP 36.5; O2SAT 100
--- NOTE | 2023-11-05 13:15 | DCINST_ITS ---
Discharge Instructions Procedure Port-A-Cath Diet Discharge Diet: Light diet - advance as tolerated (Pain medication may cause nausea. You should typically eat light foods as you take your pain medication.) Activity Discharge Activity: Return to Normal Activity and May Shower (with your bandage in place in 1-2 days after surgery. DO NOT SHOWER WHEN YOUR PORT IS ACCESSED.) Additional Activity Instructions:: Alternate ibuprofen and Tylenol for pain control Dressing / Incision Call your doctor if your incision/area has: Continuous Slow Oozing, Sudden Increased Bleeding, Increased Pain/ Swelling, Increased Redness and Foul Smelling Discharge Call your doctor if you observe: Fever of 101 or Higher Remove Dressing in: 2 days (Remove clear bandage in 2 days, remove Steri-Strips in 7 days) Cleanse incision/area with: Soap & Water Follow Up Care Please Follow Up With: Ac Gabriel MD When: as needed [phone] Test Results: Test results from this visit will be discussed in further detail at your follow- up appointment, if applicable. Discharge Plan Admission Attending Provider: Ac Gabriel Primary Care Provider: Branden Jara Discharge Orders/Prescriptions Prescriptions: No Action amlodipine-valsartan 5-320 mg tablet 1 tab PO DAILY Hold Instructions: BP STEADYW/O MED Patient Comments: TAKE ONE TABLET BY MOUTH DAILY multivitamin Tablet 1 tab PO DAILY Hold Instructions: ON HOLD Fiber Therapy (ca polycarboph) 625 mg tablet 625 mg PO BID loperamide 2 mg capsule 2 mg PO 4X/DAY acetaminophen 500 mg capsule 500 mg PO Q6H ondansetron HCl 4 mg tablet 4 mg PO Q8H PRN (Reason: nausea and vomiting) Referrals / Follow Up: Branden Jara MD [Primary Care Provider] - Disposition Disposition (needs filled in before D/C Order can be placed): Home, Self Care
[2023-11-05 13:20] VITALS: BP 108/68; BP 110/78; PULSE 91; RESP 16; O2SAT 98
--- NOTE | 2023-11-05 13:20 | RAD_ITS ---
STUDY: X-RAY CHEST REASON FOR EXAM: Male, 43 years old. Line placement -- in pacu TECHNIQUE: Single AP portable view of the chest. COMPARISON: None. FINDINGS: A right-sided portacatheter has been place with the tip in the proximal portion of the superior vena cava. The lungs are clear and expanded. There is no demonstrated pleural abnormality. Normal size heart. Normal mediastinum and johan. Normal visualized pulmonary arteries. Normal visualized aortic arch and descending thoracic aorta. Normal visualized thoracic spine. Normal visualized ribs, clavicles, and shoulders. There is no demonstrated abnormality of the visualized soft tissue structures of the upper abdomen. RAD/CXR for Line Placement IMPRESSION: The tip of the right portacatheter is in the proximal portion of the superior vena cava. Electronically Signed: Dontrell Issa MD at 13:31 EDT ,
[2023-11-05 13:25] VITALS: BP 108/68; BP 114/74; PULSE 89; RESP 16; O2SAT 99
[2023-11-05 13:30] VITALS: BP 108/68; BP 115/72; PULSE 89; RESP 16; TEMP 36.5; O2SAT 99
[2023-11-05 13:59] VITALS: BP 108/68
--- NOTE | 2023-11-05 13:59 | SUR.PHASEII ---
CXR resulted as negative for pneumothorax. Lungs clear b/l, no cough, no crepitus.
== END 2023-11-05 14:14 | disposition home or self-care (01) ==
LOC: SDC 11:17 → AC 11:19
PROVIDERS: PCP Family Medicine; Referring Provider Family Medicine; Visit Provider Surgery
PROC: (CPT 36561; principal; 2023-11-05 13:15)
DX: Z45.2 Encounter for adjustment and management of vascular access device (principal); C18.9 Malignant neoplasm of colon, unspecified; Z87.891 Personal history of nicotine dependence; I10 Essential (primary) hypertension; Z90.49 Acquired absence of other specified parts of digestive tract; Z79.899 Other long term (current) drug therapy
CPT/HCPCS: 36561; 00532; 71045; 77001; J7120; C1788; J2405

== ENCOUNTER 2023-11-11 09:02 | Outpatient (CLI) | payer BC, SELFPAY ==
[2023-11-11] MEDS: 0.9% NaCl Peripheral Flush Adult/Peds IV (09:17)
[2023-11-11] MEDS: 0.9% Normal Saline (500mL Bag) 500 ML 15 ML IV (09:18)
[2023-11-11 09:30] VITALS: BP 102/62; PULSE 94; RESP 16; TEMP 36.6; O2SAT 98; BMI 23.6
[2023-11-11 10:02] VITALS: BP 101/60; PULSE 78; RESP 16; TEMP 36.7; O2SAT 98
[2023-11-11 11:08] VITALS: BP 125/79; PULSE 77; RESP 16; TEMP 36.5; O2SAT 99
[2023-11-11 12:24] VITALS: BP 121/72; PULSE 73; RESP 16; TEMP 36.7; O2SAT 98
[2023-11-11 13:16] VITALS: BP 114/69; PULSE 76; RESP 12; TEMP 36.6; O2SAT 97
[2023-11-11 14:08] VITALS: BP 114/69; PULSE 76; RESP 16; TEMP 36.6; O2SAT 97
== END 2023-11-11 09:03 | disposition home or self-care (01) ==
LOC: MEDOUTP 09:03
PROVIDERS: PCP Family Medicine; Referring Provider Internal Medicine Hematology & Oncology; Visit Provider Internal Medicine Hematology & Oncology
DX: D50.0 Iron deficiency anemia secondary to blood loss (chronic) (principal)
CPT/HCPCS: 36430; 86850; 86900; 86901; 86920; 86922; J7040; P9016; A4216

== ENCOUNTER 2024-05-02 09:59 | Emergency (ER) | payer BC, SELFPAY ==
[2024-05-02] VITALS (7 sets, daily range): BP systolic 107–119; BP diastolic 71–87; PULSE 82–115; RESP 16–18; TEMP 36.7–37; O2SAT 98–99; BMI 22.8
--- NOTE | 2024-05-02 10:06 | ED.VIS.GI ---
HPI HPI - GI History of Present Illness Chief Complaint: Abd Pain Informant: patient Abdominal Pain/Flank Pain Onset: Days Context: Gradual Onset Timing: Intermittent Quality: Cramping and Sharp Location: Diffuse Worsened by: Nothing Relieved by: Nothing Nausea/Vomiting/Emesis GI Symptom: Positive for Nausea and Vomiting Quality: Positive for Nonbilious; Negative for Blood streaks, Coffee ground or Hematemesis Diarrhea/Melena/Hematochezia GI Symptom: Positive for Diarrhea; Negative for Melena or Hematochezia Associated Symptoms Associated Symptoms: Positive for Frequency; Negative for Dysuria or Hematuria Narrative Narrative: Patient presents with abdominal pain, nausea, vomiting, and diarrhea that has gotten worse over the past couple days. Patient states his pain is intermittent. Patient describes it as sharp. Patient states it is diffuse across his entire abdomen worse on the left. Patient states he has had some nausea and vomiting. Last night he stated that his emesis was feculent. Patient denies any hematemesis or coffee-ground emesis. Patient denies any melena or hematochezia. Patient admits to some urinary frequency but denies any dysuria or hematuria. Patient denies any fevers or chills. [facility] Medical History (Updated 05/02/24 @ 16:[address] Giovanni Leung, DO) Cancer Former smoker HTN (hypertension) Home Medications ?Medication ?Instructions ?Recorded ?Last Taken ?Type amlodipine 5 mg-valsartan 320 mg 1 tab PO DAILY 09/20/23 Unknown History tablet acetaminophen 500 mg capsule 500 mg PO Q6H PRN pain 10/31/23 Unknown History ondansetron HCl 4 mg tablet 4 mg PO Q8H PRN nausea and vomiting 10/31/23 Unknown History magnesium oxide 400 mg PO BID 05/02/24 Unknown History potassium chloride 20 mEq 20 meq PO BID 05/02/24 Unknown History tablet,extended release(part/cryst) Allergy/AdvReac Type Severity Reaction Status Date / Time codeine Allergy Itching Verified 12/29/23 09:18 Family History Mother Cancer Father Li's palsy Grandfather CVA (cerebral vascular accident) Surgical History Status post reversal of ileostomy History of colostomy History of colectomy H/O: vasectomy Social History household members: family housing: house number of children: 2 current occupational status: employed Smoking Status: Former smoker ROS ROS ED Constitutional Constitutional ED: Denies chills or fever(s) Eyes Eyes: Denies blurry vision or change in vision ENT ENT ED: Denies rhinorrhea or sore throat Cardiovascular Cardiovascular: Denies chest pain or palpitations Respiratory/Chest Respiratory/Chest: Denies cough or dyspnea Gastrointestinal Gastrointestinal: Reports abdominal pain, diarrhea, nausea and vomiting; Denies melena Genitourinary Genitourinary ED: Reports urinary frequency; Denies dysuria or hematuria Musculoskeletal Musculoskeletal: Denies back pain or neck pain Integumentary Denies abscess or rash Neurologic Neurologic: Denies headache(s) or weakness Allergic/Immunologic Allergic/Immunologic ED: Denies mouth swelling or urticaria EXAM Physical Exam Const Vital Signs: 05/02/24 10:00 05/02/24 11:32 05/02/24 12:00 Temperature 98.6 F 98.1 F Temperature Source Oral Temporal Pulse Rate 115 H 95 95 Respiratory Rate 18 16 16 Blood Pressure 108/87 H 112/76 112/76 Blood Pressure Mean 94 88 88 Pulse Ox 98 99 99 Oxygen Delivery Method Room Air Room Air Room Air 05/02/24 13:44 05/02/24 14:00 05/02/24 15:07 Temperature 98.4 F 98.4 F Temperature Source Oral Oral Pulse Rate 87 92 82 Respiratory Rate 16 16 16 Blood Pressure 119/81 H 112/81 H 107/71 Blood Pressure Mean 93 91 83 Pulse Ox 99 98 98 Oxygen Delivery Method Room Air Room Air Room Air Positive well nourished and well developed General Appearance ED: well developed and NAD HEENT Reports moist mucous membranes Neck supple and no JVD Resp normal respiratory effort and clear to auscultation bilaterally Cardio regular rhythm Rate: tachycardic GI Palpation: soft and tender epigastric, LLQ, RLQ, LUQ, RUQ, periumbilical and suprapubic; Negative for guarding or rebound tenderness present Neuro CN's II-XII intact bilaterally, moves all extremities and no sensory deficits noted Sensorium / Orientation: alert Motor Exam: strength 5/5 throughout Psych mental status grossly normal and thought process normal Skin Skin Narrative: The ileostomy site is healing well. There is no erythema or warmth. There is no fluctuance. There is no discharge or drainage noted. MDM MDM MDM Narrative Medical decision making narrative: Differential diagnose includes bowel obstruction, perforation, electrolyte abnormality, urinary tract infection, pyelonephritis, pancreatitis, and viral illness. CBC will be obtained to assess for leukocytosis and anemia. Comprehensive metabolic profile will be obtained to assess for hepatic function, renal function, and electrolyte abnormality. Lipase will be obtained to assess for pancreatitis. Urinalysis will be obtained to assess for urinary tract infection and hematuria. CT scan of the abdomen pelvis will be obtained to assess for bowel obstruction and perforation. Lab Data Attestation: I reviewed the patient's lab results. Lab results narrative: CBC was reviewed. White blood cell count was slightly low at 2.0. Hemoglobin was 10.8 and hematocrit 34.0. Platelets were normal. Absolute neutrophil count was 1.1. Comprehensive metabolic profile was reviewed. Glucose was slightly elevated at 114. Total bilirubin was slightly elevated at 1.5. AST was 66 and ALT was 154. The remainder is within normal limits. Lipase was reviewed and was normal at 14. Urinalysis was reviewed. There is no evidence of urinary tract infection or hematuria. Labs: Laboratory Results - last 24 hr 05/02/24 05/02/24 10:48 13:20 WBC 2.0 L RBC 4.02 L Hgb 10.8 L Hct 34.0 L MCV 84.6 MCH 26.9 L MCHC 31.8 L RDW Std Deviation 46.0 H RDW Coeff of Elysia 15.0 H Plt Count 340 MPV 9.4 Immature Gran % (Auto) 1.000 H Neut % (Auto) 56.2 Lymph % (Auto) 29.4 Dolores % (Auto) 12.9 H Eos % (Auto) 0.5 Baso % (Auto) 0.0 Absolute Neuts (auto) 1.1 L Absolute Lymphs (auto) 0.59 L Nucleated RBC % 0 Diff Path Review May foll Sodium 138 Potassium 3.7 Chloride 97 L Carbon Dioxide 34.0 H Anion Gap 7 BUN 25 H Creatinine 0.79 Estim Creat Clear Calc 124.81 Est GFR (MDRD) Af Amer 138 Est GFR (MDRD) Non-Af 114 BUN/Creatinine Ratio 31.8 H Glucose 114 H Calcium 9.3 Total Bilirubin 1.50 H AST 66 H ALT 154 H Alkaline Phosphatase 102 Total Protein 7.1 Albumin 3.5 Globulin 3.6 Albumin/Globulin Ratio 1.0 Lipase 14 Urine Color Yellow Urine Clarity Clear Urine pH 7.0 Ur Specific Shipman 1.005 Urine Protein 30 H Urine Glucose (UA) Normal Urine Ketones 15 H Urine Occult Blood Negative Urine Nitrite Negative Urine Bilirubin 1 H Urine Urobilinogen 4 H Ur Leukocyte Esterase 25 H Urine RBC 0 SEEN Urine WBC 0 SEEN Ur Squamous Epith Cells 0 SEEN Urine Bacteria 0 SEEN Urine Mucus 0 SEEN Radiography Diagnostic Testing: Clinical Impression(s) from Imaging Studies Abdomen/Pelvis CT 05/02/24 10:21 IMPRESSION: Moderate colonic obstruction due to abnormal soft tissue just proximal to the anastomotic suture line which may represent scarring or recurrent mass with moderately dilated fluid-filled of remainder of the colon and entire small bowel. Small amount of free fluid but no evidence of ischemia or perforation. Electronically Signed: Hany Moore MD at 13:35 EDT , CT scan of the abdomen and pelvis was obtained. There is a moderate colonic obstruction due to abnormal soft tissue just proximal to the anastomosis which may represent scarring or recurrent mass. There is a small amount of free fluid but there is no evidence of perforation or ischemia. This was interpreted by the radiologist and was also independently reviewed by myself. Treatment and Re-Evaluation :: Patient was given morphine, and Zofran. Patient was given repeat dose of morphine. Patient was advised of his findings. NG tube was recommended. Patient did refuse this however. Case was discussed with [facility] transfer line. Patient was accepted to the service of Dr. Merritt. He recommended transferring the patient to the emergency department. Case was discussed with emergency department physician at [facility]. He also accepted the patient to be transferred there. Patient and spouse understand and are agreeable with the plan. All questions were answered. Discharge Plan Triage Chief Complaint: Abd Pain ED Provider: Giovanni Leung Dx/Rx/DC Orders Clinical Impression: Bowel obstruction, Colon cancer, Anemia Prescriptions: No Action amlodipine-valsartan 5-320 mg tablet 1 tab PO DAILY Patient Comments: TAKE ONE TABLET BY MOUTH DAILY acetaminophen 500 mg capsule 500 mg PO Q6H PRN (Reason: pain) ondansetron HCl 4 mg tablet 4 mg PO Q8H PRN (Reason: nausea and vomiting) magnesium oxide 400 mg magnesium tablet 400 mg PO BID potassium chloride 20 mEq tablet,ER particles/crystals 20 meq PO BID Primary Care Provider: Branden Jara Referrals: Branden Jara MD [Primary Care Provider] - Print Language: Hungarian Disposition Disposition: Acute Care Hospital Discharge Location: [facility]
--- NOTE | 2024-05-02 10:21 | CT_ITS ---
STUDY: CT ABDOMEN AND PELVIS WITH CONTRAST REASON FOR EXAM: Male, 43 years old. Abdominal pain RADIATION DOSAGE (If Supplied By Facility): CTDIvol = ( 11.64 ) mGy, DLP = ( 678.22 ) mGycm TECHNIQUE: Transaxial images were obtained from the dome of the diaphragm to the symphysis pubis without oral contrast. IV 100mL Isovue-370 was administered. Sagittal and coronal images were reconstructed. Individualized dose optimization techniques were used for this CT. COMPARISON: 09/20/2023 FINDINGS: The visualized lung bases are unremarkable. The visualized portions of the heart are within normal limits. Normal liver. Normal gallbladder and extrahepatic biliary system. Normal spleen. Normal pancreas. Normal bilateral adrenal glands. Normal right kidney. Normal left kidney. Normal visualized stomach. Normal small intestine. Suture line in the distal sigmoid colon. Just proximal to the anastomosis there is circumferential soft tissue density with of narrowing which produces significant obstruction with moderately dilated fluid-filled of the remainder of the colon and the entire small bowel. Findings may represent scarring or recurrent mass. Small amount of free fluid in the abdomen and pelvis. No pneumatosis or portal venous gas to suggest ischemia. No pneumoperitoneum to suggest perforation. Normal abdominal aorta. Normal inferior vena cava. Normal retroperitoneum. Normal urinary bladder. Normal abdominal wall. Normal osseous structures. CT/Abdomen/Pelvis W IV Cont ONLY IMPRESSION: Moderate colonic obstruction due to abnormal soft tissue just proximal to the anastomotic suture line which may represent scarring or recurrent mass with moderately dilated fluid-filled of remainder of the colon and entire small bowel. Small amount of free fluid but no evidence of ischemia or perforation. Electronically Signed: Hany Moore MD at 13:35 EDT ,
[2024-05-02] MEDS: Ondansetron 4 MG/2 ML Vial IV (10:56)
[2024-05-02 10:57] LABS: Absolute Lymphocyte Count 0.59 X10^3/uL (0.83-4.51); Absolute Neutrophil Count 1.1 X10^3/uL (2.0-7.7); Eosinophil# 0.01 X10^3/uL; Eosinophils% 0.5 % (0-5); Hemoglobin 10.8 g/dL (13.0-16.5); Lymphocyte # 0.59 X10^3/ul (0.83-4.51); Lymphocyte % 29.4 % (19-41); Mean Corp Hgb Conc 31.8 g/dL (32-36); Mean Corpuscular Hgb 26.9 pg (27.0-32.0); Mean Corpuscular Volume 84.6 fL (80-94); Mean Platelet Vol. 9.4 fl (6.2-12.0); Monocyte# 0.26 X10^3/uL; Monocyte% 12.9 % (0-10); NRBC Flagged by Analyzer 0 % (0-5); Neutrophil # 1.13 X10^3/uL (2.7-7.7); Neutrophil % 56.2 % (47-70); POSITIVE DIFFERENTIAL YES; Platelet Count 340 K/mm3 (150-450); Red Blood Count 4.02 M/mm3 (4.6-6.2)
[2024-05-02 10:58] LABS: Differential Indicated SCAN CRITERIA MET
[2024-05-02] MEDS: Morphine 4 MG/ML Syringe IV ×3 (10:58→16:51)
[2024-05-02 11:13] LABS: AST(SGOT) 66 U/L (15-37); Alanine Aminotransfer ALT/SGPT 154 U/L (16-61); Albumin, Serum 3.5 g/dL (3.2-5.0); Alkaline Phosphatase 102 U/L (45-117); Anion Gap 7 (5-15); BUN 25 mg/dL (7-18); BUN/Creat Ratio 31.8 RATIO (10-20); Calcium,Total 9.3 mg/dL (8.5-10.1); Chloride 97 mmol/L (98-107); Creatinine, Serum 0.79 mg/dL (0.70-1.30); EST Glomerular Filtration Rate 114 mL/min (>60); Est Glom Filt Rate - Afr Amer 138 mL/min (>60); Estimated Creatinine Clearance 124.81 ml/min; Globulin 3.6 g/dL (2.2-4.2); Glucose 114 mg/dL (74-106); Lipase 14 U/L (13-75); Potassium 3.7 mmol/L (3.5-5.1); Protein, Total 7.1 g/dL (6.4-8.2); Sodium Level 138 mmol/L (136-145)
--- NOTE | 2024-05-02 11:35 | ED.RN ---
unable to draw blood off line and ct requesting peripheral line if no blood return for imaging. belle silverman in to attempt to see if can draw off
[2024-05-02 13:36] LABS: Bacteria 0 SEEN /hpf (None Seen); Mucous, Urine 0 SEEN /hpf (<or=2+); Red Blood Cells-Urine 0 SEEN /hpf (0-5); Squamous Epithelial Cells - UA 0 SEEN /hpf (0-5); White Blood Cells 0 SEEN /hpf (0-5)
[2024-05-02] MEDS: Lidocaine 2% Jelly 1 APPLIC Tube TOPICAL (13:36)
[2024-05-02] MEDS: Oxymetazoline 0.05% 1 SPRAY SPRAY.BTL 2 SPRAY NASAL (13:36)
--- NOTE | 2024-05-02 13:39 | ED.RN ---
attempted ng as ordered. lidocaine jelly used and pt unable to tosha with tube placed to back of nares. refusing saying, i cant, no way. i cant at bedside. pt sl dc'd also for uncomfortable
[2024-05-02 13:41] LABS: Color, Urine Yellow (Yellow); Glucose, Dipstick Normal (Normal); Ketone-Dipstick 15 mg/dl (Negative); Leukocyte Esterase-Dipstick 25 /ul (Negative); Nitrite-Dipstick Negative (Negative); Occult Blood-Urine Negative /ul (Negative); Protein-Dipstick 30 mg/dl (Negative); Specific Gravity, Urine 1.005 (1.002-1.030); Urine Clarity Clear (Clear); Urine Urobilinogen 4 mg/dl (Normal)
[2024-05-02 13:42] LABS: Urine Bilirubin Dipstick 1 mg/dL (Negative)
--- NOTE | 2024-05-02 14:03 | ED.RN ---
[facility] transfer initiated at [id number]
[2024-05-02] MEDS: 0.9 % NaCl (Sterile) Posiflush 10 mL IV (16:51)
[2024-05-03 13:40] LABS: Pathologist Review Reviewed
== END 2024-05-02 16:45 | disposition short-term general hospital (02) ==
PROVIDERS: Emergency Provider Emergency Medicine; PCP Family Medicine; Visit Provider Emergency Medicine
DX: K56.609 Unspecified intestinal obstruction, unspecified as to partial versus complete obstruction (principal); C18.9 Malignant neoplasm of colon, unspecified; R19.7 Diarrhea, unspecified; Z87.891 Personal history of nicotine dependence; R35.0 Frequency of micturition; I10 Essential (primary) hypertension; D64.9 Anemia, unspecified
CPT/HCPCS: 36415; 74177; 80053; 81001; 83690; 85025; 96374; 96375; 96376; 99285; Q9967; A4216; J2405

== ENCOUNTER 2024-06-17 21:39 | Emergency (ER) | payer BC, SELFPAY ==
[2024-06-17 21:40] VITALS: BP 164/92; PULSE 137; RESP 16; TEMP 37.9; O2SAT 93; BMI 22.1
[2024-06-17 21:43] VITALS: BP 125/82; PULSE 121; RESP 96; TEMP 37.9; O2SAT 12; O2SAT 95
--- NOTE | 2024-06-17 22:07 | EX.ED.DYSGE1 ---
HPI History of Present Illness Chief Complaint: Fever Narrative Narrative: 44-year-old male past medical history of colon carcinoma, currently undergoing his second round of chemotherapy. His last infusion was last week, and he is not due for his infusion which is every 2 weeks until Friday. This evening, he presents with sudden onset of fever. He denies any shortness of breath or cough, no dysuria or hematuria. His took his temperature because he felt chilled, and he had elevated temperature of 103.4 ?F. He has not received any Tylenol or ibuprofen. No exacerbating or alleviating factors. [facility] Medical History Cancer Former smoker HTN (hypertension) Home Medications ?Medication ?Instructions ?Recorded ?Last Taken ?Type amlodipine 5 mg-valsartan 320 mg 1 tab PO DAILY 09/20/23 Unknown History tablet acetaminophen 500 mg capsule 500 mg PO Q6H PRN pain 10/31/23 Unknown History ondansetron HCl 4 mg tablet 4 mg PO Q8H PRN nausea and vomiting 10/31/23 Unknown History magnesium oxide 400 mg PO BID 05/02/24 Unknown History potassium chloride 20 mEq 20 meq PO BID 05/02/24 Unknown History tablet,extended release(part/cryst) levofloxacin 750 mg tablet 750 mg PO DAILY #7 tabs 06/18/24 Unknown Rx Allergy/AdvReac Type Severity Reaction Status Date / Time codeine Allergy Itching Verified 06/17/24 21:41 Family History Mother Cancer Father Li's palsy Grandfather CVA (cerebral vascular accident) Surgical History Status post reversal of ileostomy History of colostomy History of colectomy H/O: vasectomy Social History household members: family housing: house number of children: 2 current occupational status: employed Smoking Status: Former smoker ROS ROS ED ROS Narrative Constitutional: Positive fever, positive chills. HEENT: No sore throat. No neck pain. No loss of vision. No rhinorrhea. Cardiovascular: No chest pain. No palpitations. No pedal edema. Respiratory: No cough, no shortness of breath. Abdominal: No abdominal pain. No nausea. No vomiting. Genitourinary: No dysuria. No hematuria. Musculoskeletal: No myalgias. No arthralgias. Neurologic: No headaches. No dizziness. No lightheadedness. Skin: No rash. No change in color. Psychiatric: No depression. No anxiety. EXAM Physical Exam Narrative Exam Narrative: Temperature 100.3 ?F. Nontoxic-appearing. HEENT exam shows him to be normocephalic, atraumatic. Positive Mediport right chest. Cardiovascular examination positive tachycardia. Lungs are clear to auscultation bilaterally. Abdomen soft and nontender with positive bowel sounds. Neurological examination is nonfocal and nonlateralizing. Const Vital Signs: 06/17/24 21:40 06/17/24 21:43 06/17/24 21:43 Temperature 100.3 F H 100.3 F H Temperature Source Oral Oral Pulse Rate 137 H 121 H Respiratory Rate 16 96 H Respiratory Effort Respiratory Pattern Blood Pressure 164/92 H 125/82 H Blood Pressure Mean 116 96 Pulse Ox 93 12 95 Oxygen Delivery Method Room Air Room Air Room Air 06/17/24 22:40 06/17/24 22:43 06/17/24 23:00 Temperature 100.0 F H 100.3 F H Temperature Source Oral Oral Pulse Rate 120 H 120 H 120 H Respiratory Rate 28 H 27 H 28 H Respiratory Effort Respiratory Pattern Blood Pressure 125/82 H 125/82 H 125/82 H Blood Pressure Mean 96 96 96 Pulse Ox 96 95 96 Oxygen Delivery Method Room Air Room Air Room Air 06/17/24 23:00 06/17/24 23:30 06/18/24 00:00 Temperature 99.9 F H Temperature Source Oral Pulse Rate 119 H 121 H Respiratory Rate 28 H 29 H Respiratory Effort Normal Respiratory Pattern Normal Blood Pressure 124/78 H Blood Pressure Mean 93 Pulse Ox 96 95 Oxygen Delivery Method Room Air Room Air 06/18/24 00:00 Temperature Temperature Source Pulse Rate 121 H Respiratory Rate 29 H Respiratory Effort Respiratory Pattern Blood Pressure 124/78 H Blood Pressure Mean 93 Pulse Ox 95 Oxygen Delivery Method Room Air MDM MDM MDM Narrative Medical decision making narrative: Differential diagnosis includes neutropenic fever with source of infection either urinary tract infection versus upper respiratory infection versus pneumonia. Patient has temperature of 100.3 degrees here. He will be given Tylenol. Orders have been entered per protocol. I reviewed his laboratory work and he has normal white count of 10.5, hemoglobin 10.1 with platelet count 167, ANC of 7.5. Coagulation studies are negative. Potassium slightly low at 3.2 with sodium 135. I ordered him potassium pills, but he declined them stating he has supplements at home. ALT slightly elevated at 62 which I think is nonspecific. Lactic acid normal at 1.2 so I doubt sepsis. Urinalysis negative for infection. I reviewed his respiratory swab and he is negative for COVID, influenza, and RSV. Chest x-ray interpreted by myself independently does show right middle lobe pneumonia/infiltrate. I reviewed the radiology report which confirms my independent interpretation. Additionally, urinalysis obtained and is negative. Blood cultures are currently pending. He was given a dose of Levaquin 750 mg orally. I discussed patient with his oncologist, Dr. Jim Yates. Although he is only slightly tachycardic, after he received Tylenol, it was felt that he could be discharged on a prescription for Levaquin with follow-up. He should return with increased difficulty breathing, new or worsening symptoms. It was not felt that he needed admission at this time. This was after discussion with his oncologist. Disposition is discharged home in stable condition. History & Record Review Discussion w/independent historian: Patient and Family Additional record(s) reviewed:: Prior labs Lab Data Attestation: I reviewed the patient's lab results. Labs: Laboratory Results - last 24 hr 06/17/24 06/17/24 22:05 23:00 WBC 10.5 RBC 3.75 L Hgb 10.1 L Hct 31.0 L MCV 82.7 MCH 26.9 L MCHC 32.6 RDW Std Deviation 42.4 RDW Coeff of Elysia 14.2 Plt Count 167 MPV 10.8 Immature Gran % (Auto) 0.800 Neut % (Auto) 71.4 H Lymph % (Auto) 11.7 L [place] % (Auto) 8.6 Eos % (Auto) 7.0 H Baso % (Auto) 0.5 Absolute Neuts (auto) 7.5 Absolute Lymphs (auto) 1.23 Nucleated RBC % 0 PT 13.6 INR 1.0 APTT 32.5 Sodium 135 L Potassium 3.2 L Chloride 101 Carbon Dioxide 27.0 Anion Gap 7 BUN 9 Creatinine 0.50 L Estim Creat Clear Calc 182.72 Est GFR (MDRD) Af Amer 231 Est GFR (MDRD) Non-Af 191 BUN/Creatinine Ratio 17.9 Glucose 121 H Lactic Acid 1.2 Calcium 8.5 Total Bilirubin 0.50 AST 34 ALT 62 H Alkaline Phosphatase 187 H Total Protein 6.9 Albumin 3.1 L Globulin 3.8 Albumin/Globulin Ratio 0.8 L Urine Color Yellow Urine Clarity Clear Urine pH 7.0 Ur Specific Kersey 1.005 Urine Protein Negative Urine Glucose (UA) Normal Urine Ketones Negative Urine Occult Blood Negative Urine Nitrite Negative Urine Bilirubin Negative Urine Urobilinogen Normal Ur Leukocyte Esterase Negative Urine RBC 0 SEEN Urine WBC 0 SEEN Ur Squamous Epith Cells 0 SEEN Urine Bacteria 0 SEEN Urine Mucus 0 SEEN Radiography Diagnostic Testing: Clinical Impression(s) from Imaging Studies Chest X-Ray 06/17/24 22:14 IMPRESSION: Bilateral lower lobe pneumonia * Mild patchy consolidation is present in the medial aspect of the right lower lobe and in the lateral costophrenic region of the left lower lobe. * The process should be followed up until it is clear to ensure no underlying malignant process is present. Electronically Signed: Martin Loco MD at 22:34 EST Reading Location ID and State: [address] [place] [address] , Service support , Discharge Plan Triage Chief Complaint: Fever ED Provider: Angel Rojas Dx/Rx/DC Orders Clinical Impression: Colon cancer, Pneumonia, Hypokalemia Instructions: ED Pneumonia (Adult) Prescriptions: New levofloxacin 750 mg tablet 750 mg PO DAILY Qty: 7 0RF No Action amlodipine-valsartan 5-320 mg tablet 1 tab PO DAILY Patient Comments: TAKE ONE TABLET BY MOUTH DAILY acetaminophen 500 mg capsule 500 mg PO Q6H PRN (Reason: pain) ondansetron HCl 4 mg tablet 4 mg PO Q8H PRN (Reason: nausea and vomiting) magnesium oxide 400 mg magnesium tablet 400 mg PO BID potassium chloride 20 mEq tablet,ER particles/crystals 20 meq PO BID Primary Care Provider: Branden Jara Referrals: Branden Jara MD [Primary Care Provider] - Jim Yates DO [Med Staff - Active Staff] - 1 Week Activity Restrictions/Additional Instructions: Return with sustained high fever, new or worsening symptoms. Take all the antibiotic as directed. Print Language: Croatian Disposition Disposition: Home, Self Care
--- NOTE | 2024-06-17 22:14 | RAD_ITS ---
STUDY: X-RAY CHEST REASON FOR EXAM: Male, 44 years old. Neutropenic Fever ENT IN BY ONCOLOGIST D/T FEVER OF APPROX. 103 AT HOME. SUDDEN ONSET CHILLS TONIGHT. HIP, BACK PAIN FOR A COUPLE WEEKS. History of a sigmoid colon mass. TECHNIQUE: PA and lateral views of the chest. COMPARISON: November 05, 2023 FINDINGS: 1. Mild patchy consolidation is present in the medial aspect of the right lower lobe and in the lateral costophrenic region of the left lower lobe. A trace pleural effusion is also present in left lower lobe. The upper lung caldwell are clear. 2. The right chest port is stable. 3. Normal heart size 4. Stable mediastinum and osseous structures There is no demonstrated abnormality of the visualized soft tissue structures of the upper abdomen. RAD/Chest PA and Lateral IMPRESSION: Bilateral lower lobe pneumonia * Mild patchy consolidation is present in the medial aspect of the right lower lobe and in the lateral costophrenic region of the left lower lobe. * The process should be followed up until it is clear to ensure no underlying malignant process is present. Electronically Signed: Martin Loco MD at 22:34 EST ,
[2024-06-17 22:15] LABS: Absolute Lymphocyte Count 1.23 X10^3/uL (0.83-4.51); Absolute Neutrophil Count 7.5 X10^3/uL (2.0-7.7); Basophil# 0.05 X10^3/uL; Basophil% 0.5 % (0-1); Eosinophil# 0.73 X10^3/uL; Hemoglobin 10.1 g/dL (13.0-16.5); Lymphocyte # 1.23 X10^3/ul (0.83-4.51); Lymphocyte % 11.7 % (19-41); Mean Corp Hgb Conc 32.6 g/dL (32-36); Mean Corpuscular Hgb 26.9 pg (27.0-32.0); Mean Corpuscular Volume 82.7 fL (80-94); Mean Platelet Vol. 10.8 fl (6.2-12.0); Monocyte% 8.6 % (0-10); NRBC Flagged by Analyzer 0 % (0-5); Neutrophil # 7.48 X10^3/uL (2.7-7.7); Neutrophil % 71.4 % (47-70); Platelet Count 167 K/mm3 (150-450); RBC Distribution Width CV 14.2 % (11.6-14.6); RBC Distribution Width SD 42.4 fl (35.1-43.9); Red Blood Count 3.75 M/mm3 (4.6-6.2); White Blood Count 10.5 K/mm3 (4.4-11.0)
[2024-06-17] MEDS: Acetaminophen 325 MG Tablet 650 MG PO (22:27)
[2024-06-17 22:28] LABS: Prothrombin Time (Protime)PT. 13.6 SECONDS (11.7-14.9)
[2024-06-17 22:29] LABS: Partial Thromboplast Time 32.5 Seconds (24.1-36.2)
[2024-06-17 22:30] LABS: ALB/GLOB Ratio 0.8 RATIO (0.9-2.4); AST(SGOT) 34 U/L (15-37); Alanine Aminotransfer ALT/SGPT 62 U/L (16-61); Albumin, Serum 3.1 g/dL (3.2-5.0); Alkaline Phosphatase 187 U/L (45-117); Anion Gap 7 (5-15); BUN 9 mg/dL (7-18); BUN/Creat Ratio 17.9 RATIO (10-20); Calcium,Total 8.5 mg/dL (8.5-10.1); Chloride 101 mmol/L (98-107); EST Glomerular Filtration Rate 191 mL/min (>60); Est Glom Filt Rate - Afr Amer 231 mL/min (>60); Estimated Creatinine Clearance 182.72 ml/min; Globulin 3.8 g/dL (2.2-4.2); Glucose 121 mg/dL (74-106); Potassium 3.2 mmol/L (3.5-5.1); Protein, Total 6.9 g/dL (6.4-8.2); Sodium Level 135 mmol/L (136-145)
[2024-06-17 22:40] VITALS: BP 125/82; PULSE 120; RESP 28; O2SAT 96
[2024-06-17 22:43] VITALS: BP 125/82; PULSE 120; RESP 27; TEMP 37.8; O2SAT 95
[2024-06-17 22:48] LABS: Lactic Acid 1.2 mmol/L (0.4-1.9)
[2024-06-17 23:00] VITALS: BP 125/82; PULSE 119; PULSE 120; RESP 28; TEMP 37.9; O2SAT 96
[2024-06-17 23:16] LABS: Bacteria 0 SEEN /hpf (None Seen); Mucous, Urine 0 SEEN /hpf (<or=2+); Red Blood Cells-Urine 0 SEEN /hpf (0-5); Squamous Epithelial Cells - UA 0 SEEN /hpf (0-5); White Blood Cells 0 SEEN /hpf (0-5)
[2024-06-17 23:21] LABS: Color, Urine Yellow (Yellow); Glucose, Dipstick Normal (Normal); Ketone-Dipstick Negative (Negative); Leukocyte Esterase-Dipstick Negative /ul (Negative); Nitrite-Dipstick Negative (Negative); Occult Blood-Urine Negative /ul (Negative); Protein-Dipstick Negative (Negative); Specific Gravity, Urine 1.005 (1.002-1.030); Urine Bilirubin Dipstick Negative (Negative); Urine Clarity Clear (Clear); Urine Urobilinogen Normal (Normal)
[2024-06-18] VITALS: BP 124/78; PULSE 121; RESP 29; TEMP 37.7; O2SAT 95
[2024-06-18 00:12] VITALS: BP 124/78; PULSE 121; RESP 29; TEMP 37.7; O2SAT 95
[2024-06-18] MEDS: levoFLOXacin 750 MG Tablet PO (00:32)
== END 2024-06-18 00:36 | disposition home or self-care (01) ==
PROVIDERS: Emergency Provider Emergency Medicine; PCP Family Medicine; Visit Provider Emergency Medicine
DX: J18.9 Pneumonia, unspecified organism (principal); C18.9 Malignant neoplasm of colon, unspecified; Z92.21 Personal history of antineoplastic chemotherapy; Z87.891 Personal history of nicotine dependence; I10 Essential (primary) hypertension; Z95.828 Presence of other vascular implants and grafts; E87.6 Hypokalemia
CPT/HCPCS: 36591; 71046; 80053; 81001; 83605; 85025; 85610; 85730; 87040; 87086; 87631; 99283; A4216

== ENCOUNTER 2024-07-29 11:37 | Inpatient (IN) | payer BC, SELFPAY ==
[2024-07-29] VITALS (15 sets, daily range): BP systolic 98–127; BP diastolic 64–104; PULSE 90–135; RESP 15–20; TEMP 36.4–37.2; O2SAT 91–98; BMI 20.7; BMI 20.6
--- NOTE | 2024-07-29 11:45 | EKG12_ITS ---
Test Reason : SOB Blood Pressure : */* mmHG Vent. Rate : 106 BPM Atrial Rate : 106 BPM P-R Int : 182 ms QRS Dur : 84 ms QT Int : 358 ms P-R-T Axes : 30 73 25 degrees QTcB Int : 475 ms Sinus tachycardia Otherwise normal ECG Baseline artifact Confirmed by Milton Hilario ([id number]), slot editor AMY LUTHER ([id number]) on 07/30/2024 9:35:16 AM Referred By: Confirmed By: Milton Hilario
--- NOTE | 2024-07-29 11:45 | CT_ITS ---
EXAM: CT ANGIOGRAPHY CHEST WITHOUT AND WITH INTRAVENOUS CONTRAST CLINICAL INDICATION: Dyspnea, tachycardia, marginal pulse ox, Hx CA TECHNIQUE: Helically acquired angiography images were obtained of the chest without and with intravenous contrast. This CT exam was performed using one or more of the following dose reduction techniques: automated exposure control, adjustment of the mA and/or kV according to patient size, and/or use of iterative reconstruction technique. MIP reconstructed images were created and reviewed. CONTRAST: IV 100mL [id number] RADIATION DOSE: CTDIvol = 6.61 mGy, DLP = 248.89 mGy-cm COMPARISON: No relevant prior studies available. FINDINGS: PULMONARY ARTERIES: Unremarkable. Normal in caliber. No evidence of pulmonary embolism. AORTA: Unremarkable. Normal thoracic aorta and upper abdominal aorta without dissection. Normal aortic arch and origins of the great vessels. GREAT VESSELS OF AORTIC ARCH: Unremarkable. Normal in caliber. No evidence of dissection. 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 LUNGS AND PLEURAL SPACES: Multifocal peripheral inflammatory infiltrates with spiculated borders in the lower lobes more than the upper lobes. Mild bilateral posterior pleural effusion. Mild posterior pleural thickening. No mass. No pneumothorax. HEART: Unremarkable. Heart size is normal. No significant coronary artery calcifications. Normal cardiac size. Normal pericardium. MEDIASTINUM: Unremarkable. No mediastinal or hilar adenopathy. Esophagus is unremarkable. No hiatal hernia. THYROID: Unremarkable. No thyroid lesions. BONES/JOINTS: Unremarkable. No suspicious lytic or blastic abnormality. LYMPH NODES: Multiple enlarged lymph nodes around the lower trachea, in the subcarinal space and in both johan. No axillary lymphadenopathy. No lymphadenopathy in the supraclavicular fossa. LIVER: Moderate diffuse fatty infiltration of liver. TUBES, LINES AND DEVICES: Right IJ approach Port-A-Cath tip is in the distal SVC. CT/CTA Chest W/WO Contrast IMPRESSION: 1. No CTA evidence of pulmonary thromboemboli, thoracic aneurysm or dissection. 2. Multiple and multifocal peripheral inflammatory infiltrates with spiculated borders in both lungs, lower lobes more than the upper lobes. 3. Multiple enlarged lymph nodes around the lower trachea, in the subcarinal space and in both johan. Inflammatory versus neoplasm. 4. Mild bilateral posterior pleural effusions and bilateral posterior pleural thickening. 5. Moderate diffuse hepatic steatosis. 6. 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 Electronically Signed: Angel He MD at 13:33 EST ,
--- NOTE | 2024-07-29 11:47 | ED.VIS.DYS ---
HPI History of Present Illness Chief Complaint: Shortness of Breath Detail of Chief Complaint: Shortness of breath, weakness Informant: patient Onset/Context/Timing Onset: Weeks (1.0) Context: sudden Timing: Continuous Quality: Positive for Dyspnea on exertion; Negative for Orthopnea, PND or Wheezing Current Severity: Mild Maximum Severity: Moderate Worsened by: Exertion Relieved by: Nothing Associated Symptoms cough and subjective; Negative for rhinorrhea, post nasal drip, ear pain, fever, sore throat, chills or sweats Chest Pain: Positive for None Narrative Narrative: Patient is a 44-year-old male who was diagnosed with stage III cancer September last year. In spite of chemotherapy the cancer has progressed. He was sent in because of concern for pulmonary embolus. He has had a temperature up to 100 last week. He does have a slight cough. He quit smoking approximately 13 years ago. He has lost weight. Patient denies headache, visual, ocular auditory symptoms. Patient denies chest discomfort or pain with breathing. Patient does endorse dyspnea, dyspnea on exertion. Abdomen is benign. He does have a colostomy. He has had output. He has had decreased urine output which is related to his chemo. He also has discoloration of his fingers which has been attributed to his chemo as well PE Risk Factors: Positive for Cancer; Negative for OCP + Smoking + > 35, Prior DVT or PE, Recent immobilization, Recent surgery or Recent travel Prior similar symptoms: No Recent Illness/Hospitalization: No [facility] Medical History (Updated 07/29/24 @ 14:[address] Fernando Diaz MD) Cancer Former smoker HTN (hypertension) Home Medications ?Medication ?Instructions ?Recorded ?Last Taken ?Type amlodipine 5 mg-valsartan 320 mg 1 tab PO DAILY 09/20/23 Unknown History tablet acetaminophen 500 mg capsule 500 mg PO Q6H PRN pain 10/31/23 07/28/24 History ondansetron HCl 4 mg tablet 4 mg PO Q8H PRN nausea and vomiting 10/31/23 07/28/24 History magnesium oxide 400 mg PO BID 05/02/24 07/29/24 History potassium chloride 20 mEq 20 meq PO BID 05/02/24 Unknown History tablet,extended release(part/cryst) loperamide 2 mg capsule 4 mg PO Q6H PRN loose stool 07/29/24 07/29/24 History minocycline 100 mg capsule 100 mg PO BID 07/29/24 07/29/24 History morphine concentrate 100 mg/5 mL 5 mg PO BID PRN pain 07/29/24 07/28/24 History (20 mg/mL) oral solution nystatin 100,000 unit/mL oral 5 ml PO Q6H 07/29/24 07/29/24 History suspension oxycodone 5 mg tablet 5 mg PO 4X/DAY PRN 07/29/24 07/28/24 History Allergy/AdvReac Type Severity Reaction Status Date / Time codeine Allergy Itching Verified 07/29/24 11:39 Family History Mother Cancer Father Li's palsy Grandfather CVA (cerebral vascular accident) Surgical History (Updated 07/29/24 @ 14:00 by Alicia Da Silva) History of appendectomy Status post reversal of ileostomy History of colostomy History of colectomy H/O: vasectomy Social History household members: family housing: house number of children: 2 current occupational status: employed Smoking Status: Former smoker ROS ROS ED Constitutional Constitutional ED: Reports fever(s) and other Details: Tmax last week 100.0 ?F. ; Denies chills, sweats or weight loss Eyes Eyes: Denies blurry vision, change in vision or diplopia ENT ENT ED: Denies ear pain, rhinorrhea or sore throat Cardiovascular Cardiovascular: Reports racing heartbeat; Denies chest pain, orthopnea, palpitations or paroxysmal nocturnal dyspnea Respiratory/Chest Respiratory/Chest: Reports cough, dyspnea and dyspnea on exertion; Denies orthopnea, paroxysmal nocturnal dyspnea or sputum Gastrointestinal Gastrointestinal: Denies abdominal pain, constipation, diarrhea, melena, nausea or vomiting Genitourinary Genitourinary ED: Reports other Details: Decreased urine output ; Denies dysuria, hematuria or urinary frequency Musculoskeletal Musculoskeletal: Denies arthralgias or myalgias Integumentary Reports rash and other Details: As noted in the HPI narrative Neurologic Neurologic: Denies headache(s) Psychiatric Psychiatric: Denies anxiety Hematologic/Lymphatic Hematologic/Lymphatic: Denies easy bleeding or easy bruising EXAM Physical Exam Const Vital Signs: 07/29/24 11:37 07/29/24 11:57 07/29/24 12:37 Temperature 97.6 F L 98 F Temperature Source Temporal Temporal Pulse Rate 135 H 102 H 90 Respiratory Rate 18 18 20 H Blood Pressure 125/104 H 112/89 H 112/79 Blood Pressure Mean 111 96 90 Pulse Ox 91 96 97 Oxygen Delivery Method Room Air Room Air 07/29/24 12:37 07/29/24 13:00 07/29/24 13:00 Temperature 98 F 98 F Temperature Source Temporal Temporal Pulse Rate 90 90 95 Respiratory Rate 18 18 18 Blood Pressure 112/79 112/76 112/76 Blood Pressure Mean 90 88 88 Pulse Ox 97 97 97 Oxygen Delivery Method Room Air Room Air 07/29/24 14:00 Temperature 98.3 F Temperature Source Oral Pulse Rate 106 H Respiratory Rate 15 Blood Pressure 127/83 H Blood Pressure Mean 97 Pulse Ox 92 Oxygen Delivery Method Room Air Positive well developed and cachectic Constitutional Narrative: Patient appears ill. General Appearance ED: well developed and cachectic; Negative for NAD Nutritional Appearance: cachectic HEENT Reports dry mucous membranes HEENT Narrative: Patient has temporal wasting. His eyes are somewhat sunken. Nares patent. Posterior pharynx is normal. Ears are normal. Mouth ED: Yes dry mucous membranes Mouth: dry mucous membranes Eyes PERRL and EOMs intact bilaterally General Eye ED: Yes pale conjunctiva; Negative for scleral icterus Neck No no lymphadenopathy, No supple and No no JVD Resp normal respiratory effort and No clear to auscultation bilaterally Auscultation: rales right mid and left lower (There is no egophony or increased vocal fremitus.) Cardio regular rhythm, S1 normal heart sound, S2 normal heart sound and no murmurs Rate: tachycardic GI GI Narrative: Abdomen is scaphoid. Colostomy is noted. There is watery green fecal matter noted in the colostomy bag. Auscultation: normoactive bowel sounds Palpation: soft Back/Spine Back/Spine Narrative: Inspection of the back appears normal. Extremity Extremity Narrative: There is no asymmetry, swelling, discoloration, leg vein distention, palpable cords or tenderness along the distribution of the deep venous system. Patient has discoloration of multiple fingers. Patient and states is been attributed to the chemotherapy he is on. His capillary fill is slightly delayed approximately 3 seconds. There is no clubbing noted. General Extremety ED: Negative for edema or tenderness General Extremity: Negative for edema Neuro oriented x3 and CN's II-XII intact bilaterally [place] Coma Scale: document GCS findings Spontaneous Obeys Commands Oriented 15 Sensorium / Orientation: alert Psych mental status grossly normal Skin Skin Narrative: Distal purplish discoloration of multiple fingers, superficial wounds. Again, patient and attribute this to the chemo. MDM MDM MDM Narrative Medical decision making narrative: Differential diagnosis would include pulmonary embolus, pulmonary infarction, pneumonia. Congestive heart failure is not a consideration. Since patient is not PERC negative and Wells score is greater than 3 D-dimer not obtained a CTA was ordered. Patient's last BUN/creatinine on 06/17/2024 was normal. Patient does have mild anemia with a hemoglobin 10.1. Clinically patient appears dry. Apparently there are issues related to his chemo. 1 L of normal saline was ordered. Troponin and BNP were obtained to assess for right heart strain and would indicate large burden load/clot and possible intervention by vascular. History & Record Review Discussion w/independent historian: Patient and Significant other Additional record(s) reviewed:: Prior inpatient record (Admitted September 2023 for nonintentional weight loss, hypokalemia, abnormal CAT scan findings suggestive of cancer. There is a pelvic mass noted that was felt to be arising from the distal sigmoid colon. There is thickening of the adjacent wall and at that time on certain whether this represent a fo), Prior ED visit (Patient was seen June 17 and diagnosed with pneumonia. He was discharged to home.) and Other (Patient was seen May 02 had a bowel obstruction. He was transferred to [facility]. He had a 2 to 3-week stay.) Lab Data Attestation: I reviewed the patient's lab results. Lab results narrative: White count is elevated 12,000 with shift. There is no bandemia. Patient has microcytic anemia. Basic metabolic panel is remarked for an elevated BUN to creatinine ratio of 26:1. BUN is 12 with a creatinine of 0.46. AST is slightly elevated 67. Albumin is low at 2.0. Albumin on June 17, 2024 was 3.1. This is a significant drop. Would be consistent with malnutrition. Labs: Laboratory Results - last 24 hr 07/29/24 11:56 WBC 12.0 H RBC 4.23 L Hgb 10.7 L Hct 33.8 L MCV 79.9 L MCH 25.3 L MCHC 31.7 L RDW Std Deviation 44.4 H RDW Coeff of Elysia 15.5 H Plt Count 307 MPV 10.7 Immature Gran % (Auto) 1.400 H Neut % (Auto) 86.6 H Lymph % (Auto) 5.9 L [place] % (Auto) 4.7 Eos % (Auto) 1.1 Baso % (Auto) 0.3 Absolute Neuts (auto) 10.4 H Absolute Lymphs (auto) 0.71 L Nucleated RBC % 0 Sodium 131 L Potassium 3.9 Chloride 98 Carbon Dioxide 22.0 Anion Gap 11 BUN 12 Creatinine 0.46 L Estim Creat Clear Calc 186.07 Est GFR (MDRD) Af Amer 256 Est GFR (MDRD) Non-Af 212 BUN/Creatinine Ratio 26.0 H Glucose 100 Lactic Acid 1.5 Calcium 7.7 L Total Bilirubin 0.80 AST 67 H ALT 18 Alkaline Phosphatase 88 Troponin I High Sens 4 B-Natriuretic Peptide 6.1 Total Protein 6.0 L Albumin 2.0 L Globulin 4.0 Albumin/Globulin Ratio 0.5 L Troponin and BNP were both normal. Radiography Diagnostic Testing: Clinical Impression(s) from Imaging Studies Chest CTA 07/29/24 11:45 IMPRESSION: 1. No CTA evidence of pulmonary thromboemboli, thoracic aneurysm or dissection. 2. Multiple and multifocal peripheral inflammatory infiltrates with spiculated borders in both lungs, lower lobes more than the upper lobes. 3. Multiple enlarged lymph nodes around the lower trachea, in the subcarinal space and in both johan. Inflammatory versus neoplasm. 4. Mild bilateral posterior pleural effusions and bilateral posterior pleural thickening. 5. Moderate diffuse hepatic steatosis. 6. 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 Electronically Signed: Angel He MD at 13:33 EST , CT of the chest reveals bilateral multilobar infiltrates. This may represent COVID. Patient will receive azithromycin and Rocephin for community-acquired pneumonia. Since he is on immunosuppressive meds i.e. chemo blood cultures were obtained. Port score is 83 which is a risk class III with 0.9 to 2.8% mortality. Outpatient or inpatient treatment depending on clinical judgment. Curb 65 score 0. Again depending on clinical judgment. In light of the fact that the patient appears cachectic tachycardic tachypneic on chemo meds with multilobar bilateral pneumonia with recommend inpatient. Will discuss case with hospitalist once radiologist has formally read the CAT scan. Report documented by radiologist was reviewed. He notes multiple and multifocal peripheral inflammatory infiltrates with spiculated borders in both lungs. Lower lobes greater than upper. There is multiple enlarged lymph nodes around the lower trachea and hien area. This represents inflammatory versus neoplasm. In light of the fact that patient has respiratory symptoms had fever last week on chemo we will contact hospitalist for admission and further diagnostic workup. Concerned this may represent both. Will contact Dr. Huerta the hospitalist and Dr. Jim Yates his oncologist who sent him to the emergency department. EKG Initial EKG: Attestation: I personally reviewed and interpreted this EKG as follows: Interpretation: Sinus Tachycardia (Rate is 106. Patient appears to have a every 3 T3 S1. Which raises concern for pulmonary embolus. He does have a sinus tach at 106. EKG is otherwise unremarkable. IL interval is 182 ms. QS duration 84 ms. QT duration 358 ms. Castine is normal. There is no obvious evidence of right heart strain) Management Discussion w/another healthcare provider: Hospitalist (Spoke with Dr. Jean. She requested I speak with Dr. Jim Yates to determine if patient has history of mets to his lung.) and [place] [facility] (Spoke with Dr. Jim Yates his oncologist. Patient had a CT of the chest May that was negative other than small pleural effusion. He recommended full respiratory panel and if no improvement in 24 to 48 hours pulmonary consult for bronchoscopy.) Discharge Plan Dx/Rx/DC Orders Clinical Impression: Bilateral interstitial pneumonia, Weight loss, non-intentional, History of colon cancer, stage IV, Hypoalbuminemia, Leukocytosis, Sinus tachycardia seen on mattress stuffer, SIRS (systemic inflammatory response syndrome), Microcytic anemia, Acute hyponatremia Disposition Disposition: [facility]
[2024-07-29] MEDS: 0.9% Normal Saline (1000mL) 1,000 ML 1000 ML IV (11:55)
[2024-07-29 12:07] LABS: Absolute Lymphocyte Count 0.71 X10^3/uL (0.83-4.51); Absolute Neutrophil Count 10.4 X10^3/uL (2.0-7.7); Basophil# 0.04 X10^3/uL; Basophil% 0.3 % (0-1); Eosinophil# 0.13 X10^3/uL; Eosinophils% 1.1 % (0-5); Hematocrit 33.8 % (40-54); Hemoglobin 10.7 g/dL (13.0-16.5); Lymphocyte # 0.71 X10^3/ul (0.83-4.51); Lymphocyte % 5.9 % (19-41); Mean Corp Hgb Conc 31.7 g/dL (32-36); Mean Corpuscular Hgb 25.3 pg (27.0-32.0); Mean Corpuscular Volume 79.9 fL (80-94); Mean Platelet Vol. 10.7 fl (6.2-12.0); Monocyte# 0.56 X10^3/uL; Monocyte% 4.7 % (0-10); NRBC Flagged by Analyzer 0 % (0-5); Neutrophil # 10.36 X10^3/uL (2.7-7.7); Neutrophil % 86.6 % (47-70); Platelet Count 307 K/mm3 (150-450); RBC Distribution Width CV 15.5 % (11.6-14.6); RBC Distribution Width SD 44.4 fl (35.1-43.9); Red Blood Count 4.23 M/mm3 (4.6-6.2)
[2024-07-29 12:23] LABS: ALB/GLOB Ratio 0.5 RATIO (0.9-2.4); AST(SGOT) 67 U/L (15-37); Alanine Aminotransfer ALT/SGPT 18 U/L (16-61); Alkaline Phosphatase 88 U/L (45-117); Anion Gap 11 (5-15); BUN 12 mg/dL (7-18); Calcium,Total 7.7 mg/dL (8.5-10.1); Chloride 98 mmol/L (98-107); Creatinine, Serum 0.46 mg/dL (0.70-1.30); EST Glomerular Filtration Rate 212 mL/min (>60); Est Glom Filt Rate - Afr Amer 256 mL/min (>60); Estimated Creatinine Clearance 186.07 ml/min; Glucose 100 mg/dL (74-106); Potassium 3.9 mmol/L (3.5-5.1); Sodium Level 131 mmol/L (136-145); Troponin-I HS 4 pg/mL (3.0-78.0)
[2024-07-29 12:29] LABS: BNP,B-Type NATRIURETIC PEPTIDE 6.1 pg/mL (0-100)
[2024-07-29 12:35] LABS: Lactic Acid 1.5 mmol/L (0.4-1.9)
[2024-07-29] MEDS: Ondansetron 4 MG/2 ML Vial IV (13:30)
[2024-07-29] MEDS: Morphine 4 MG/ML Syringe IV (13:31)
[2024-07-29] MEDS: Ceftriaxone 2 GM in 0.9% Normal Saline (50mL MB+) 50 ML IV (13:32)
[2024-07-29] MEDS: NYSTATIN 500,000 UNIT/5 ML UDC 500000 UNIT PO ×3 (13:50→22:43)
--- NOTE | 2024-07-29 13:53 | HP.PCM.HOS_ITS ---
HPI - General General Date of Admission: 07/29/24 Date of Service: 07/29/24 Chief Complaint: Dyspnea, cough, worsening. HPI Narrative The patient is a 44 y/o M w/ PMHx: Chronic microcytic anemia, Former tobacco use, HTN, Metastatic Adenocarcinoma Colon CA following w/ Dr. Yates status post previous low laparoscopic converted to open low anterior resection, en bloc ileocecectomy with end ileostomy and mucous fistula along with mobilization of the splenic flexure and colorectal anastomosis 10/09/2023 who presents to the [facility] ED on 07/29/2024 with worsening dyspnea, worse with exertion with a slight cough with temperature outpatient up to 100 last week but none since with poor intake, decreased urine output because of lack of intake with ongoing chemotherapy with unfortunately worsening prognosis with mild congestion otherwise no other marked upper respiratory type symptoms but concern for possible pulmonary emboli per his oncologist thus referred to the ED for evaluation. Workup in the ED included T98, heart rate 95, BP 112/76, respiratory rate 18, 97% on room air, CBC with WBC 12, hemoglobin 10.7, MCV 79.9, platelet 307 with increased immature granulocytes with left shift and lymphopenia, CMP with sodium 131, BUN/creatinine 12/0.46, GFR 212, lactic acid 1.5, hepatic profile not marked appearing, BNP 6.1, troponin 4, blood culture x 2 pending per ED, respiratory SARS COVID/influenza/RSV PCR pending per ED, EKG with sinus tachycardia with no acute evidence of ischemia CTA chest with no CTA evidence of pulmonary thromboemboli, thoracic aneurysm or dissection, multiple and multifocal peripheral inflammatory infiltrates with spiculated borders in both lungs, lower lobes more than upper lobes, multiple enlarged lymph nodes around the lower trachea and the subcarinal space and both johan, inflammatory versus neoplasm, mild bilateral posterior pleural effusions of bilateral posterior pleural thickening, moderate diffuse hepatic steatosis, incidentally included is a 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 ED physician did discuss case with patient's oncologist Dr. Yates and at this time recommendation for continued antibiotic therapies for possible bacterial pneumonia, continue evaluation for possible viral etiology and if this is unremarkable or patient does not improve recommendation for possible bronchoscopy with recommended concurrent pulmonary evaluation ongoing. In the ED patient ministered 1 L normal saline, IV azithromycin and IV Rocephin, morphine 4 mg IV x 1, Zofran 4 mg IV x 1, oral nystatin 5000 unit p.o. x 1. PFSH Medical History Metastatic cancer Cancer Former smoker HTN (hypertension) Home Medications ?Medication ?Instructions ?Recorded ?Last Taken ?Type amlodipine 5 mg-valsartan 320 mg 1 tab PO DAILY 09/20/23 Unknown History tablet acetaminophen 500 mg capsule 500 mg PO Q6H PRN pain 10/31/23 07/28/24 History ondansetron HCl 4 mg tablet 4 mg PO Q8H PRN nausea and vomiting 10/31/23 07/28/24 History magnesium oxide 400 mg PO BID 05/02/24 07/29/24 History potassium chloride 20 mEq 20 meq PO BID 05/02/24 Unknown History tablet,extended release(part/cryst) loperamide 2 mg capsule 4 mg PO Q6H PRN loose stool 07/29/24 07/29/24 History minocycline 100 mg capsule 100 mg PO BID 07/29/24 07/29/24 History morphine concentrate 100 mg/5 mL 5 mg PO BID PRN pain 07/29/24 07/28/24 History (20 mg/mL) oral solution nystatin 100,000 unit/mL oral 5 ml PO Q6H 07/29/24 07/29/24 History suspension oxycodone 5 mg tablet 5 mg PO 4X/DAY PRN 07/29/24 07/28/24 History Allergy/AdvReac Type Severity Reaction Status Date / Time codeine Allergy Itching Verified 07/29/24 11:39 Family History Mother Cancer Father Li's palsy Grandfather CVA (cerebral vascular accident) Surgical History History of appendectomy Status post reversal of ileostomy History of colostomy History of colectomy H/O: vasectomy Social History (Updated 07/29/24 @ 17:[address] Vicky Huerta MD) household members: family housing: house number of children: 2 current occupational status: employed Smoking Status: Former smoker alcohol intake: never substance use type: does not use ROS ROS Narrative Admission Review of Systems: CONSTITUTIONAL: No weight loss, chills, + fever, weakness or fatigue. HEENT: Eyes: No visual loss, blurred vision, double vision or yellow sclerae. Ears, Nose, Throat: No hearing loss, sneezing, congestion, runny nose or sore throat. SKIN: No rash or itching, lesions, wounds, except + very staged ecchymoses. CARDIOVASCULAR: + Pleuritic chest discomfort intermittently, palpitations. No edema, orthopnea, syncopal events. RESPIRATORY: + Dyspnea, intermittent cough with difficulty bringing up sputum. No marked wheezing or hemoptysis. GASTROINTESTINAL: + Anorexia, sore mouth, intermittent nausea, intermittent abdominal discomfort, decreased output per ostomy but decreased oral intake. No vomiting, melena, BRBPR. GENITOURINARY: No dysuria, frequency, urgency or retention. NEUROLOGICAL: No headache, dizziness, syncope, paralysis, ataxia, numbness or tingling in the extremities, focal weakness, change in bowel or bladder control, seizure. MUSCULOSKELETAL: + muscle, back pain, joint pain or stiffness. HEMATOLOGIC: + Chronic anemia. Bleeding or bruising. LYMPHATICS: No enlarged nodes. No history of splenectomy. PSYCHIATRIC: No history of depression or anxiety. ENDOCRINOLOGIC: No reports of sweating, cold or heat intolerance. No polyuria or polydipsia. ALLERGIES: No history of asthma, hives, eczema or rhinitis. Vital Signs Vital Signs Vital Signs: 07/29/24 11:37 07/29/24 11:57 07/29/24 12:37 Temperature 97.6 F L 98 F Temperature Source Temporal Temporal Pulse Rate 135 H 102 H 90 Respiratory Rate 18 18 20 H Blood Pressure 125/104 H 112/89 H 112/79 Blood Pressure Mean 111 96 90 Pulse Ox 91 96 97 Oxygen Delivery Method Room Air Room Air 07/29/24 12:37 07/29/24 13:00 07/29/24 13:00 Temperature 98 F 98 F Temperature Source Temporal Temporal Pulse Rate 90 90 95 Respiratory Rate 18 18 18 Blood Pressure 112/79 112/76 112/76 Blood Pressure Mean 90 88 88 Pulse Ox 97 97 97 Oxygen Delivery Method Room Air Room Air Weight Weight: 140 lb 1 oz Body Mass Index (BMI) 20.7 Physical Exam Narrative Physical Examination: General: Awake, alert, oriented x 3 and cooperative, seated upright in the ED bed, fatigued, ill-appearing. Skin: Normal color, normal turgor, no icterus, no cyanosis except for very staged ecchymoses, abrasion. HEENT: AT/NC, EOMI, PERRLA, dry MM, notable oral thrush evident, no carotid bruits or JVD noted. Lungs: Severely diminished, greater bases, poor effort, unable to take deep breaths, poor coughing effort, no rales, ronchi or wheezing. Heart: Tachycardic with rhythm; no gallop, rub audible. Abdomen: Soft, NTTP, ND, ostomy in place with minimal output, mildly hyperactive BS, no appreciated HSM. Extremities: No cyanosis, clubbing, or edema, evidence of muscle loss/fat loss Neurological: Patient awake, alert, oriented as noted, cognitive function intact; pupils equally reactive to light and accommodation, cranial nerves gross normal, moving all 4 extremities, no focal deficits, strength severely globally decreased secondary to acute presentation complicated by underlying metastatic cancer diagnosis, even needing help to sit up in the bed. Psychiatric: Affect appears flat, fatigued, no acute evidence of depressive or anxiety feelings. Results Lab / Micro Data 07/29/24 11:56 07/29/24 11:56 Labs: Laboratory Results - last 24 hr 07/29/24 11:56: WBC 12.0 H, RBC 4.23 L, Hgb 10.7 L, Hct 33.8 L, MCV 79.9 L, MCH 25.3 L, MCHC 31.7 L, RDW Std Deviation 44.4 H, RDW Coeff of Elysia 15.5 H, Plt Count 307, MPV 10.7, Immature Gran % (Auto) 1.400 H, Neut % (Auto) 86.6 H, Lymph % (Auto) 5.9 L, [place] % (Auto) 4.7, Eos % (Auto) 1.1, Baso % (Auto) 0.3, Absolute Neuts (auto) 10.4 H, Absolute Lymphs (auto) 0.71 L, Nucleated RBC % 0, Sodium 131 L, Potassium 3.9, Chloride 98, Carbon Dioxide 22.0, Anion Gap 11, BUN 12, C reatinine 0.46 L, Estim Creat Clear Calc 186.07, Est GFR (MDRD) Af Amer 256, Est GFR (MDRD) Non-Af 212, BUN/Creatinine Ratio 26.0 H, Glucose 100, Lactic Acid 1.5, Calcium 7.7 L, Total Bilirubin 0.80, AST 67 H, ALT 18, Alkaline Phosphatase 88, Troponin I High Sens 4, B-Natriuretic Peptide 6.1, Total Protein 6.0 L, A lbumin 2.0 L, Globulin 4.0, Albumin/Globulin Ratio 0.5 L Imaging Radiology Impression Chest CTA 07/29/24 11:45 IMPRESSION: 1. No CTA evidence of pulmonary thromboemboli, thoracic aneurysm or dissection. 2. Multiple and multifocal peripheral inflammatory infiltrates with spiculated borders in both lungs, lower lobes more than the upper lobes. 3. Multiple enlarged lymph nodes around the lower trachea, in the subcarinal space and in both johan. Inflammatory versus neoplasm. 4. Mild bilateral posterior pleural effusions and bilateral posterior pleural thickening. 5. Moderate diffuse hepatic steatosis. 6. 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 Electronically Signed: Angel He MD at 13:33 EST , Assessment & Plan Assessment/Plan (1) SIRS (systemic inflammatory response syndrome): PLAN: Plan The patient is a 44 y/o M w/ PMHx: Chronic microcytic anemia, Former tobacco use, HTN, Metastatic Adenocarcinoma Colon CA following w/ Dr. Yates status post previous low laparoscopic converted to open low anterior resection, en bloc ileocecectomy with end ileostomy and mucous fistula along with mobilization of the splenic flexure and colorectal anastomosis 10/09/2023 who presents to the [facility] ED on 07/29/2024 with worsening dyspnea, worse with exertion with a slight cough with temperature outpatient up to 100 last week but none since with poor intake, decreased urine output because of lack of intake with ongoing chemotherapy with unfortunately worsening prognosis with mild congestion otherwise no other marked upper respiratory type symptoms but concern for possible pulmonary emboli per his oncologist thus referred to the ED for evaluation. #1. SIRS with Dyspnea, mild low normal threshold hypoxia concerning for possible bilateral interstitial pneumonia, possible inflammatory infiltrate secondary recent viral illness versus metastatic disease with underlying metastatic adenocarcinoma which has been progressing: Given tachycardia upon presentation, will admit to DC telemetry but once improving following IV fluids would de-escalate off, currently not requiring any oxygen supplementation but has been low and in the low 90s, given recent chemotherapy will initiate on BSA with IV Vanco and Zosyn with requested MRSA screen with de-escalation once able, PRN albuterol, HOB, IS parameters w/ pending sputum cultures, full respiratory viral panel, procalcitonin and urine antigens. Pulmonary consultation requested. If patient is not clinically improving oncology has recommended consideration for bronchoscopy thus will await pulmonary evaluation and their input. Given severity of weakness witnessed in the ED PT/OT/case management consulted for discharge planning. #2. Metastatic Adenocarcinoma Colon CA: Patient following w/ Dr. Yates status post previous low laparoscopic converted to open low anterior resection, en bloc ileocecectomy with end ileostomy and mucous fistula along with mobilization of the splenic flexure and colorectal anastomosis 10/09/2023, ongoing chemotherapies with last treatments ~ 3 weeks prior to current presentation, possibility that pulmonary findings on CT are metastatic cancer per discussion with oncology however preference to treat for possible infectious etiology first, magnesium and phosphorus levels requested. #3. Oral thrush: Significantly noted oral thrush, will continue oral nystatin swish and swallow, aggressive oral care, in the interim will alter diet to mechanical soft and will also place on IV PPI until assure intake improved. #4. Severe protein calorie malnutrition: Patient with significantly decreased intake possibly secondary to his underlying cancer and treatments with associated symptoms but also recent oral thrush has likely been causing limitations with discomfort, noted BMX did not work, will continue as noted initiation of oral nystatin swish and swallow, nutrition consulted for recommendations. #5. Hypertension: Previously on hypertensive regimen however patient has had normal BPs likely given dehydrated status chronically, will continue to monitor and add regimen if appropriate, PRN IV hydralazine. #6. Former tobacco use: Encourage continued tobacco cessation. #7. Chronic microcytic anemia: Likely secondary to underlying chemotherapy and cancer, admission hemoglobin 10.7, MCV 79.9, this is similar to his recent baseline hemoglobin of primarily 10-11, not on any supplementation, will request iron panel, ferritin, trend CBC. #8. Hyponatremia, mild, likely secondary to recent poor intake, hypovolemic status: Admission sodium 131, chloride 98, will judiciously hydrate and repeat CMP in AM. #9. DVT prophylaxis: Lovenox. #10. CODE status: Patient HCPOA is his who is present and living will is currently in place. Discussed CODE status at length including difference between FULL code, DNR-CCA and DNR-CC status. Following discussions about the differences in these status, requested at this time to continue Full Code status. Advanced Care Planning Face to Face Time: 16 minutes. Charges/Coding Visit Charges Inpatient E&M: 54464 Init Hosp L3 Procedures Hospitalists Procedures: 30146 Advncd Care Plan 30 Min
[2024-07-29] MEDS: Azithromycin 500 MG in 0.9% Normal Saline (250mL Bag) 250 ML 255 MG IV (14:17)
[2024-07-29 15:32] LABS: Magnesium 1.7 mg/dL (1.6-2.6); Phosphorus 3.9 mg/dL (2.5-4.9)
[2024-07-29 17:10] LABS: Procalcitonin 0.23 ng/mL (0.00-0.09)
[2024-07-29 18:16] LABS: Ferritin 1138 ng/mL (26-388); Iron 18 ug/dL (65-175); Iron Binding Capacity,Total 179 ug/dL (250-450); PERCENT IRON SATURATION 10.1 % (15.0-55.0)
[2024-07-29] MEDS: 0.9% Normal Saline (1000mL) 1,000 ML 999 ML IV (18:44)
[2024-07-29] MEDS: Menthol/Lanolin/Calamine/Znox 113 GM Tube 1 APPLIC TOPICAL ×2 (19:59→22:42)
[2024-07-29] MEDS: Vancomycin HCl 1,500 MG in 0.9% Normal Saline (500mL Bag) 500 ML 250 MG IV (19:59)
[2024-07-29] MEDS: 0.9% Normal Saline (1000mL) 1,000 ML 100 ML IV (20:00)
[2024-07-29] MEDS: oxyCODONE 5 MG Tablet PO (20:01)
[2024-07-29] MEDS: Acetaminophen 325 MG Tablet 650 MG PO (20:02)
--- NOTE | 2024-07-29 20:09 | PCM.RX.CS ---
Consult Antibiotic Management Pharmacy has been consulted to manage selected antibiotic: Vancomycin Type of Intervention Type of Consult: New start Suspected Infection Suspected Infection: Pneumonia Prior Doses of Antibiotics Prior Doses of Antibiotics Received/Current Regimen: Vancomycin 1500 mg IV x 1 given 07/29/24 @ 1959 Labs Labs: Sodium 131 mmol/L (136-145) L 07/29/24 11:56 Potassium 3.9 mmol/L (3.5-5.1) 07/29/24 11:56 Chloride 98 mmol/L (98-107) 07/29/24 11:56 Carbon Dioxide 22.0 mmol/L (21.0-32.0) 07/29/24 11:56 Anion Gap 11 (5-15) 07/29/24 11:56 BUN 12 mg/dL (7-18) 07/29/24 11:56 Creatinine 0.46 mg/dL (0.70-1.30) L 07/29/24 11:56 Est GFR (MDRD) Af Amer 256 mL/min (>60) 07/29/24 11:56 Est GFR (MDRD) Non-Af 212 mL/min (>60) 07/29/24 11:56 BUN/Creatinine Ratio 26.0 RATIO (10-20) H 07/29/24 11:56 Glucose 100 mg/dL (74-106) 07/29/24 11:56 Microbiology Microbiology: Microbiology 07/29/24 13:18 Mucosa - Nose SARS-CoV-2, Influenza & RSV (PCR) - Final Dosing Weight Weight used for dosin kg Estimated Creatinine Clearance Estimated Creatinine Clearance: ~ 186 Goal Trough Goal Trough: 15-20 mcg/mL Pharmacy Plan for Drug Dosing Pharmacy Plan for Drug Dosing: Vancomycin 1500 mg IV x 1 followed by 750 mg Q8H Pharmacy Service will continue to monitor and adjust dosing as required. Follow-Up Labs Follow-Up Labs: Trough: Vancomycin Date/Time Labs Ordered Labs to be done on [date and time ordered]: 07/30/24 @ 1930
[2024-07-29] MEDS: Pantoprazole Sodium 40 MG in 0.9% Normal Saline (100mL MB+) 100 ML 330 MG IV (22:10)
[2024-07-29] MEDS: Piperacil/Tazobactam 3.375 GM in 0.9% Normal Saline (50mL MB+) 50 ML IV (22:43)
[2024-07-30] VITALS (10 sets, daily range): BP systolic 100–118; BP diastolic 60–74; PULSE 87–108; RESP 15–20; TEMP 36.5–37; O2SAT 88–98; BMI 20.6
[2024-07-30] MEDS: Vancomycin HCl 750 MG in 0.9% Normal Saline (250mL Bag) 250 ML 250 MG IV ×2 (04:14→12:31)
[2024-07-30] MEDS: Piperacil/Tazobactam 3.375 GM in 0.9% Normal Saline (50mL MB+) 50 ML IV ×3 (05:54→22:43)
[2024-07-30 07:38] LABS: Absolute Lymphocyte Count 0.49 X10^3/uL (0.83-4.51); Absolute Neutrophil Count 6.7 X10^3/uL (2.0-7.7); Basophil# 0.03 X10^3/uL; Basophil% 0.4 % (0-1); Eosinophil# 0.31 X10^3/uL; Eosinophils% 3.9 % (0-5); Hematocrit 29.1 % (40-54); Hemoglobin 9.1 g/dL (13.0-16.5); Lymphocyte # 0.49 X10^3/ul (0.83-4.51); Lymphocyte % 6.1 % (19-41); Mean Corp Hgb Conc 31.3 g/dL (32-36); Mean Corpuscular Hgb 25.3 pg (27.0-32.0); Mean Corpuscular Volume 80.8 fL (80-94); Mean Platelet Vol. 10.8 fl (6.2-12.0); Monocyte# 0.41 X10^3/uL; Monocyte% 5.1 % (0-10); NRBC Flagged by Analyzer 0 % (0-5); Neutrophil # 6.72 X10^3/uL (2.7-7.7); Neutrophil % 83.5 % (47-70); POSITIVE DIFFERENTIAL YES; Platelet Count 256 K/mm3 (150-450); RBC Distribution Width CV 15.6 % (11.6-14.6); RBC Distribution Width SD 45.8 fl (35.1-43.9)
[2024-07-30 07:59] LABS: ALB/GLOB Ratio 0.5 RATIO (0.9-2.4); AST(SGOT) 59 U/L (15-37); Alanine Aminotransfer ALT/SGPT 13 U/L (16-61); Albumin, Serum 1.6 g/dL (3.2-5.0); Alkaline Phosphatase 84 U/L (45-117); Anion Gap 6 (5-15); BUN 8 mg/dL (7-18); BUN/Creat Ratio 24.8 RATIO (10-20); Calcium,Total 7.4 mg/dL (8.5-10.1); Chloride 105 mmol/L (98-107); Creatinine, Serum 0.32 mg/dL (0.70-1.30); EST Glomerular Filtration Rate 320 mL/min (>60); Est Glom Filt Rate - Afr Amer 388 mL/min (>60); Globulin 3.3 g/dL (2.2-4.2); Glucose 89 mg/dL (74-106); Potassium 3.7 mmol/L (3.5-5.1); Protein, Total 4.9 g/dL (6.4-8.2); Sodium Level 134 mmol/L (136-145)
[2024-07-30] MEDS: NYSTATIN 500,000 UNIT/5 ML UDC 500000 UNIT PO ×4 (08:00→22:59)
--- NOTE | 2024-07-30 10:17 | CASEMGMT ---
YUMIKO MALHOTRA Assessment: Face to Face with pt for initial transition planning/care coordination assessment. RN MARYA introduced self and role at [facility], pt voices understanding and consents to assessment. Pt is A&O x4 and answers all questions appropriately at this time. Pt lying in bed in no distress with at bedside on RA. Care providers, pharmacy, and demographics verified/updated. Admitting Dx: ? bilat pna/SIRS, hyponatremia, adult FTT Strata Score: 2 PCP:aMrek Specialists:Trudy onc Preferred Pharmacy: [facility] Retail Insurance: [employer] Prescription Benefit: yes LNOK: Regina Humphreys, Living Arrangements: Pt lives with and 2 children in a two story home and states he doesn't know how many steps to enter. Pt reports steps are not an issue up to this point. Pt reports he is I in ADLs and IADLs are not an issue if he were stronger. Pt denies concerns at home. Transportation: Pt drives self and denies concerns with transportation. DME:receives ostomy supplies from [facility]/SNF: Has had [facility] in the past and denies SNF stays Pt states no concerns with going home at time of dc. Pt did not want to answer questions. Pt states she is at home most of the time as she works from home. 6 cl=22. Pt states no further concerns/needs. CM to follow. Advised pt to ask CM if any further questions/concerns/needs arise, voices understanding. Pt Goal: Home Plan: Home pending course of hospitalization, therapy to ryan Zurita RN, CM
--- NOTE | 2024-07-30 10:24 | CON.PCM.CC_ITS ---
Assessment & Plan Assessment/Plan (1) Bilateral interstitial pneumonia: PLAN: Plan RECOMMENDATIONS: 1. Continue empiric broad-spectrum antimicrobials for now. 2. Supplemental IV fluid hydration. 3. Nystatin as ordered. 4. Encourage incentive spirometer use and mobilize patient as tolerated. IMPRESSIONS: 1. Shortness of breath with multifocal airspace opacities on chest imaging concerning for pneumonia The patient has a history of metastatic adenocarcinoma of the colon and is currently undergoing chemotherapy. The patient began to develop generalized malaise and shortness of breath in between and . Unfortunately, the patient's symptoms continued to persist. Therefore, the patient was referred to the emergency department to be evaluated for pulmonary embolism, which was ultimately ruled out. The patient is clinically stable on room air. I agree with continuing empiric broad-spectrum antimicrobials for now. If the patient begins to feel improved clinically over the weekend, he can likely be discharged home to complete a course of Levaquin. Otherwise, if the patient worsens clinically, will consider bronchoscopy early next week. 2. History of metastatic adenocarcinoma of the colon/protein calorie malnutrition/hypertension/anemia Complicates care, management, recovery and prognosis. Continue supportive care as noted above. This note was generated with [employer] dictation software. It may contain incorrect words, spelling, and punctuation that were not noted in checking the note before signing. HPI Consult Data Date of Consult: 07/30/24 HPI Narrative Reason for Consultation: Pneumonia HPI Narrative: The patient is a 44-year-old male, with a history as outlined below, who presented to the emergency department on July 29 with shortness of breath. The patient currently follows with Dr. Yates of oncology due to a history of metastatic adenocarcinoma of the colon, for which he is receiving chemotherapy. The patient reported that his last round of chemotherapy was sometime in mid June. He then traveled to [place] with his family in between and , during which time, he began to experience some generalized malaise and shortness of breath, which she largely attributed to his chemotherapy. However, his symptoms persisted upon returning back home. Over concerns for possible pulmonary embolism, the patient was referred to the emergency department for evaluation. The patient has a very remote smoking history. On presentation to the emergency department, the patient was documented to be afebrile hemodynamically stable. He was saturating 96% on room air. Laboratory evaluation revealed a white blood cell count of 12,000. Hemoglobin was stable at 10.7 g/dL with a platelet count of 307,000. Chemistry profile was unremarkable. Lactate was within normal limits. Procalcitonin was mildly elevated at 0.23. CTA chest was completed and ruled out pulmonary embolism. However, there was evidence of multifocal airspace opacities bilaterally, most pronounced in the lung bases. The patient was initiated on empiric broad- spectrum antimicrobials and was admitted to the hospital. This morning, the patient has remained clinically stable on room air. He has a dry cough, but has been unable to produce any sputum. Strep and urine Legionella antigens were negative. MRSA screen was negative. Respiratory viral panel was negative. COVID, influenza and RSV PCR's were negative. [facility] Medical History Metastatic cancer Cancer Former smoker HTN (hypertension) Home Medications ?Medication ?Instructions ?Recorded ?Last Taken ?Type amlodipine 5 mg-valsartan 320 mg 1 tab PO DAILY 09/20/23 Unknown History tablet acetaminophen 500 mg capsule 500 mg PO Q6H PRN pain 10/31/23 07/28/24 History ondansetron HCl 4 mg tablet 4 mg PO Q8H PRN nausea and vomiting 10/31/23 07/28/24 History magnesium oxide 400 mg PO BID 05/02/24 07/29/24 History potassium chloride 20 mEq 20 meq PO BID 05/02/24 Unknown History tablet,extended release(part/cryst) loperamide 2 mg capsule 4 mg PO Q6H PRN loose stool 07/29/24 07/29/24 History minocycline 100 mg capsule 100 mg PO BID 07/29/24 07/29/24 History morphine concentrate 100 mg/5 mL 5 mg PO BID PRN pain 07/29/24 07/28/24 History (20 mg/mL) oral solution nystatin 100,000 unit/mL oral 5 ml PO Q6H 07/29/24 07/29/24 History suspension oxycodone 5 mg tablet 5 mg PO 4X/DAY PRN 07/29/24 07/28/24 History Allergy/AdvReac Type Severity Reaction Status Date / Time codeine Allergy Itching Verified 07/29/24 11:39 Family History Mother Cancer Father Li's palsy Grandfather CVA (cerebral vascular accident) Surgical History History of appendectomy Status post reversal of ileostomy History of colostomy History of colectomy H/O: vasectomy Social History (Updated 07/29/24 @ 17:[address] Vicky Huerta MD) household members: family housing: house number of children: 2 current occupational status: employed Smoking Status: Former smoker alcohol intake: never substance use type: does not use ROS ROS Narrative 10 systems were reviewed with pertinent positives as noted in the HPI above. Physical Exam Const alert and no apparent distress General Appearance: cooperative and ill appearing HEENT normocephalic and head/scalp atraumatic HEENT Narrative: Dry mucous membranes no thrush present Eyes PERRL, EOMs intact bilaterally and conjunctivae normal Neck supple General: trachea midline Chest inspection of chest normal Resp normal respiratory effort Auscultation: diminished lung sounds; Negative for rales, rhonchi or wheezes Cardio regular rate and regular rhythm GI normal to inspection, nondistended, normoactive bowel sounds Extremity no clubbing, cyanosis or edema Skin no rashes or lesions noted Neuro CN's II-XII intact bilaterally, moves all extremities and no focal motor deficits Psych Mood & Affect: flat affect Lab / Micro Data 07/30/24 07:28 07/30/24 07:28 Labs: Laboratory Results - last 24 hr 07/29/24 11:56: WBC 12.0 H, RBC 4.23 L, Hgb 10.7 L, Hct 33.8 L, MCV 79.9 L, MCH 25.3 L, MCHC 31.7 L, RDW Std Deviation 44.4 H, RDW Coeff of Elysia 15.5 H, Plt Count 307, MPV 10.7, Immature Gran % (Auto) 1.400 H, Neut % (Auto) 86.6 H, Lymph % (Auto) 5.9 L, Centre % (Auto) 4.7, Eos % (Auto) 1.1, Baso % (Auto) 0.3, Absolute Neuts (auto) 10.4 H, Absolute Lymphs (auto) 0.71 L, Nucleated RBC % 0, Sodium 131 L, Potassium 3.9, Chloride 98, Carbon Dioxide 22.0, Anion Gap 11, BUN 12, C reatinine 0.46 L, Estim Creat Clear Calc 186.07, Est GFR (MDRD) Af Amer 256, Est GFR (MDRD) Non-Af 212, BUN/Creatinine Ratio 26.0 H, Glucose 100, Lactic Acid 1.5, Calcium 7.7 L, Phosphorus 3.9, Magnesium 1.7, Iron 18 L, TIBC 179 L, Iron Saturation 10.1 L, Ferritin 1138 H, Total Bilirubin 0.80, AST 67 H, ALT 18, Alkaline Phosphatase 88, Troponin I High Sens 4, B-Natriuretic Peptide 6.1, T otal Protein 6.0 L, Albumin 2.0 L, Globulin 4.0, Albumin/Globulin Ratio 0.5 L 07/29/24 16:28: Procalcitonin 0.23 H 07/30/24 05:45: WBC Cancelled, Corrected WBC Cancelled, RBC Cancelled, Hgb Cancelled, Hct Cancelled, MCV Cancelled, MCH Cancelled, MCHC Cancelled, RDW Std Deviation Cancelled, RDW Coeff of Elysia Cancelled, Plt Count Cancelled, MPV Cancelled, Immature Gran % (Auto) Cancelled, Neut % (Auto) Cancelled, Lymph % (Auto) Cancelled, Centre % (Auto) Cancelled, Eos % (Auto) Cancelled, Baso % (Auto) Cancelled, Absolute Neuts (auto) Cancelled, Absolute Lymphs (auto) Cancelled, Total Counted Cancelled, Neutrophils % (Manual) Cancelled, Band Neutrophils % Cancelled, Lymphocytes % (Manual) Cancelled, Monocytes % (Manual) Cancelled, Eosinophils % (Manual) Cancelled, Basophils % (Manual) Cancelled, Metamyelocytes % Cancelled, Myelocytes % Cancelled, Promyelocytes % Cancelled, Blast Cells % Cancelled, Plasma Cell % (Manual) Cancelled, Other Cells % Cancelled, Nucleated RBC % Cancelled, Nucleated RBCs/100 WBC Cancelled, Differential Comment Cancelled, Diff Path Review Cancelled, Hypersegmented Neuts Cancelled, Atypical Lymphocytes Cancelled, Reactive Lymphocytes Cancelled, Smudge Cells Cancelled, Toxic Granulation Cancelled, Toxic Vacuolation Cancelled, Dohle Bodies Cancelled, Jamey Rods Cancelled, Platelet Estimate Cancelled, Plt Morphology Comment Cancelled, RBC Morphology Cancelled 07/30/24 05:45: RBC Morphology Cancelled, Polychromasia Cancelled, Hypochromasia Cancelled, Basophilic Stippling Cancelled, Anisocytosis Cancelled, Microcytosis Cancelled, Macrocytosis Cancelled, Spherocytes Cancelled, Sickle Cells Cancelled, Target Cells Cancelled, Tear Drop Cells Cancelled, Ovalocytes Cancelled, Stomatocytes Cancelled, [place] Bodies Cancelled, Cipriano Cells Cancelled, Bite Cells Cancelled, Crenated Cell Cancelled, Acanthocytes (Spur) Cancelled, Rouleaux Cancelled, Schistocytes Cancelled, Sodium Cancelled, Potassium Cancelled, Chloride Cancelled, Carbon Dioxide Cancelled, Anion Gap Cancelled, BUN Cancelled, Creatinine Cancelled, Estim Creat Clear Calc Cancelled, Est GFR (MDRD) Af Amer Cancelled, Est GFR (MDRD) Non-Af Cancelled, BUN/Creatinine Ratio Cancelled, Glucose Cancelled, Calcium Cancelled, Total Bilirubin Cancelled, AST Cancelled, ALT Cancelled, Alkaline Phosphatase Cancelled, Total Protein Cancelled, Albumin Cancelled, Globulin Cancelled, Albumin/Globulin Ratio Cancelled 07/30/24 07:28: WBC 8.0, RBC 3.60 L, Hgb 9.1 L, Hct 29.1 L, MCV 80.8, MCH 25.3 L , MCHC 31.3 L, RDW Std Deviation 45.8 H, RDW Coeff of Elysia 15.6 H, Plt Count 256, MPV 10.8, Immature Gran % (Auto) 1.000 H, Neut % (Auto) 83.5 H, Lymph % (Auto) 6.1 L, Centre % (Auto) 5.1, Eos % (Auto) 3.9, Baso % (Auto) 0.4, Absolute Neuts (auto) 6.7, Absolute Lymphs (auto) 0.49 L, Nucleated RBC % 0, Sodium 134 L, Potassium 3.7, Chloride 105, Carbon Dioxide 23.0, Anion Gap 6, BUN 8, Creatinine 0.32 L, Estim Creat Clear Calc 266.50, Est GFR (MDRD) Af Amer 388, Est GFR (MDRD) Non-Af 320, BUN/Creatinine Ratio 24.8 H, Glucose 89, Calcium 7.4 L, Total Bilirubin 0.50, AST 59 H, ALT 13 L, Alkaline Phosphatase 84, Total Protein 4.9 L , Albumin 1.6 L, Globulin 3.3, Albumin/Globulin Ratio 0.5 L Micro: Microbiology 07/30/24 03:10 Urine, Random Streptococcus pneumoniae Antigen (M - Final 07/30/24 03:10 Urine, Random Legionella Antigen - Final 07/30/24 00:10 Nasal Secretion MRSA (PCR) - Final 07/29/24 17:42 Mucosa - Nasopharyngeal Respiratory Panel (PCR) - Final 07/29/24 13:18 Mucosa - Nose SARS-CoV-2, Influenza & RSV (PCR) - Final Imaging Radiology Impression Chest CTA 07/29/24 11:45 IMPRESSION: 1. No CTA evidence of pulmonary thromboemboli, thoracic aneurysm or dissection. 2. Multiple and multifocal peripheral inflammatory infiltrates with spiculated borders in both lungs, lower lobes more than the upper lobes. 3. Multiple enlarged lymph nodes around the lower trachea, in the subcarinal space and in both johan. Inflammatory versus neoplasm. 4. Mild bilateral posterior pleural effusions and bilateral posterior pleural thickening. 5. Moderate diffuse hepatic steatosis. 6. 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 Electronically Signed: Angel He MD at 13:33 EST , Charges/Coding Visit Charges Inpatient E&M: 13626 Init Hosp L3
[2024-07-30] MEDS: 0.9% Normal Saline (1000mL) 1,000 ML 75 ML IV (10:32)
--- NOTE | 2024-07-30 10:42 | PCM.PN.HOSP ---
Reason for Visit Reason for Visit: Diagnoses Interstitial pulmonary disease, unspecified (07/29/24) Systemic inflammatory response syndrome (SIRS) of non-infectious origin without acute organ dysfunction (07/29/24) Subjective Subjective Patient feeling about the same as yesterday, no significant improvement or significant worsening. Has had poor p.o. intake recently and significant other at bedside is worried he could be dehydrated. Patient with cough but without any sputum production. Objective Data Objective Data Vital Signs: Vital Signs Temp Pulse Resp BP Pulse Ox O2 Del Method 97.7 F L 99 16 100/71 98 Room Air 07/30/24 08:02 07/30/24 08:02 07/30/24 08:02 07/30/24 08:02 07/30/24 08:02 07/30/24 08:03 Oxygen Delivery Method Room Air Weight: 63.3 kg Body Mass Index (BMI) 20.6 Intake & Output: Intake and Output for Last 24 Hours 07/28/24 07/29/24 07/30/24 23:59 23:59 23:59 Intake Total 3145 / 3295 1565 / 1565 Output Total 30 / 30 Balance 3145 / 3295 1535 / 1535 Lab / Micro Data 07/30/24 07:28 07/30/24 07:28 Labs: Laboratory Results - last 24 hr 07/29/24 11:56: WBC 12.0 H, RBC 4.23 L, Hgb 10.7 L, Hct 33.8 L, MCV 79.9 L, MCH 25.3 L, MCHC 31.7 L, RDW Std Deviation 44.4 H, RDW Coeff of Elysia 15.5 H, Plt Count 307, MPV 10.7, Immature Gran % (Auto) 1.400 H, Neut % (Auto) 86.6 H, Lymph % (Auto) 5.9 L, [place] % (Auto) 4.7, Eos % (Auto) 1.1, Baso % (Auto) 0.3, Absolute Neuts (auto) 10.4 H, Absolute Lymphs (auto) 0.71 L, Nucleated RBC % 0, Sodium 131 L, Potassium 3.9, Chloride 98, Carbon Dioxide 22.0, Anion Gap 11, BUN 12, Creatinine 0.46 L, Estim Creat Clear Calc 186.07, Est GFR (MDRD) Af Amer 256, Est GFR (MDRD) Non-Af 212, BUN/Creatinine Ratio 26.0 H, Glucose 100, Lactic Acid 1.5, Calcium 7.7 L, Phosphorus 3.9, Magnesium 1.7, Iron 18 L, TIBC 179 L, Iron Saturation 10.1 L, Ferritin 1138 H, Total Bilirubin 0.80, AST 67 H, ALT 18, Alkaline Phosphatase 88, Troponin I High Sens 4, B-Natriuretic Peptide 6.1, Total Protein 6.0 L, Albumin 2.0 L, Globulin 4.0, Albumin/Globulin Ratio 0.5 L 07/29/24 16:28: Procalcitonin 0.23 H 07/30/24 05:45: WBC Cancelled, Corrected WBC Cancelled, RBC Cancelled, Hgb Cancelled, Hct Cancelled, MCV Cancelled, MCH Cancelled, MCHC Cancelled, RDW Std Deviation Cancelled, RDW Coeff of Elysia Cancelled, Plt Count Cancelled, MPV Cancelled, Immature Gran % (Auto) Cancelled, Neut % (Auto) Cancelled, Lymph % (Auto) Cancelled, [place] % (Auto) Cancelled, Eos % (Auto) Cancelled, Baso % (Auto) Cancelled, Absolute Neuts (auto) Cancelled, Absolute Lymphs (auto) Cancelled, Total Counted Cancelled, Neutrophils % (Manual) Cancelled, Band Neutrophils % Cancelled, Lymphocytes % (Manual) Cancelled, Monocytes % (Manual) Cancelled, Eosinophils % (Manual) Cancelled, Basophils % (Manual) Cancelled, Metamyelocytes % Cancelled, Myelocytes % Cancelled, Promyelocytes % Cancelled, Blast Cells % Cancelled, Plasma Cell % (Manual) Cancelled, Other Cells % Cancelled, Nucleated RBC % Cancelled, Nucleated RBCs/100 WBC Cancelled, Differential Comment Cancelled, Diff Path Review Cancelled, Hypersegmented Neuts Cancelled, Atypical Lymphocytes Cancelled, Reactive Lymphocytes Cancelled, Smudge Cells Cancelled, Toxic Granulation Cancelled, Toxic Vacuolation Cancelled, Dohle Bodies Cancelled, Jamey Rods Cancelled, Platelet Estimate Cancelled, Plt Morphology Comment Cancelled, RBC Morphology Cancelled 07/30/24 05:45: RBC Morphology Cancelled, Polychromasia Cancelled, Hypochromasia Cancelled, Basophilic Stippling Cancelled, Anisocytosis Cancelled, Microcytosis Cancelled, Macrocytosis Cancelled, Spherocytes Cancelled, Sickle Cells Cancelled, Target Cells Cancelled, Tear Drop Cells Cancelled, Ovalocytes Cancelled, Stomatocytes Cancelled, [place] Bodies Cancelled, Cipriano Cells Cancelled, Bite Cells Cancelled, Crenated Cell Cancelled, Acanthocytes (Spur) Cancelled, Rouleaux Cancelled, Schistocytes Cancelled, Sodium Cancelled, Potassium Cancelled, Chloride Cancelled, Carbon Dioxide Cancelled, Anion Gap Cancelled, BUN Cancelled, Creatinine Cancelled, Estim Creat Clear Calc Cancelled, Est GFR (MDRD) Af Amer Cancelled, Est GFR (MDRD) Non-Af Cancelled, BUN/Creatinine Ratio Cancelled, Glucose Cancelled, Calcium Cancelled, Total Bilirubin Cancelled, AST Cancelled, ALT Cancelled, Alkaline Phosphatase Cancelled, Total Protein Cancelled, Albumin Cancelled, Globulin Cancelled, Albumin/Globulin Ratio Cancelled 07/30/24 07:28: WBC 8.0, RBC 3.60 L, Hgb 9.1 L, Hct 29.1 L, MCV 80.8, MCH 25.3 L, MCHC 31.3 L, RDW Std Deviation 45.8 H, RDW Coeff of Elysia 15.6 H, Plt Count 256, MPV 10.8, Immature Gran % (Auto) 1.000 H, Neut % (Auto) 83.5 H, Lymph % (Auto) 6.1 L, [place] % (Auto) 5.1, Eos % (Auto) 3.9, Baso % (Auto) 0.4, Absolute Neuts (auto) 6.7, Absolute Lymphs (auto) 0.49 L, Nucleated RBC % 0, Sodium 134 L, Potassium 3.7, Chloride 105, Carbon Dioxide 23.0, Anion Gap 6, BUN 8, Creatinine 0.32 L, Estim Creat Clear Calc 266.50, Est GFR (MDRD) Af Amer 388, Est GFR (MDRD) Non-Af 320, BUN/Creatinine Ratio 24.8 H, Glucose 89, Calcium 7.4 L, Total Bilirubin 0.50, AST 59 H, ALT 13 L, Alkaline Phosphatase 84, Total Protein 4.9 L, Albumin 1.6 L, Globulin 3.3, Albumin/Globulin Ratio 0.5 L Micro: Microbiology 07/30/24 03:10 Urine, Random Streptococcus pneumoniae Antigen (M - Final 07/30/24 03:10 Urine, Random Legionella Antigen - Final 07/30/24 00:10 Nasal Secretion MRSA (PCR) - Final 07/29/24 17:42 Mucosa - Nasopharyngeal Respiratory Panel (PCR) - Final 07/29/24 13:18 Mucosa - Nose SARS-CoV-2, Influenza & RSV (PCR) - Final Radiography Diagnostic Testing: Radiology Impression Chest CTA 07/29/24 11:45 IMPRESSION: 1. No CTA evidence of pulmonary thromboemboli, thoracic aneurysm or dissection. 2. Multiple and multifocal peripheral inflammatory infiltrates with spiculated borders in both lungs, lower lobes more than the upper lobes. 3. Multiple enlarged lymph nodes around the lower trachea, in the subcarinal space and in both johan. Inflammatory versus neoplasm. 4. Mild bilateral posterior pleural effusions and bilateral posterior pleural thickening. 5. Moderate diffuse hepatic steatosis. 6. 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 Electronically Signed: Angel He MD at 13:33 EST , Physical Exam Narrative General: Alert, oriented, very thin HEENT: Atraumatic, normocephalic Eyes: Anicteric, normal conjunctiva, extraocular movements grossly intact Neck: Supple Respiratory: No increased respiratory effort at rest, somewhat diminished bilaterally Cardiovascular: Initially low-grade sinus tachycardia that improved with fluids GI: Soft, nontender, nondistended Extremities: No edema Musculoskeletal: Moving all extremities Neuro: No overt focal neurological deficits Skin: No rashes appreciated Psych: Cooperative Assessment & Plan Assessment/Plan (1) Bilateral interstitial pneumonia: PLAN: Plan # Multifocal airspace opacities -Concerning for pneumonia versus metastatic adenocarcinoma -Patient on broad-spectrum antibiotics -Evaluated by pulmonology and discussed with pump oiler, if patient improves over the weekend with IV antibiotics he can be discharged on oral antibiotics and an outpatient CT but if not we will revisit possible bronchoscopy early in the week -Incentive spirometer ordered -Continue supportive care # History of metastatic adenocarcinoma of the colon -Following with Dr. Yates on outpatient basis -Status post colon resection -Actively undergoing chemo -Will need to follow-up on discharge # Poor p.o. intake -Patient appears somewhat clinically dry, IV fluids #DVT ppx: Lovenox subcu Evelin Estrada MD Time spent in the patient's overall evaluation, decision-making process, review of diagnostic data, adjustment of management, discussion with other providers, nursing and ancillary staff involved in patient's care documentation, 36 Minutes Charges/Coding Visit Charges Inpatient E&M: 95218 Subs Hosp L2
--- NOTE | 2024-07-30 11:18 | WOUNDNOTE ---
Was consulted by Dr Huerta for skin breakdown and stated family wanted more info on care at home. pt denies any skin breakdown. 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 denies any issues with skin breakdown around the stoma. pt states overall skin is just dry over the entire body. states he does use lotion to help with the dryness. pt able to care for ostomy himself and does have his own supplies. pt aware to call if any questions or concerns arise. does not appear to need this nurse at this time. will monitor.
[2024-07-30] MEDS: Acetaminophen 325 MG Tablet 650 MG PO ×3 (11:52→22:56)
[2024-07-30] MEDS: oxyCODONE 5 MG Tablet PO ×3 (11:53→22:56)
[2024-07-30] MEDS: Menthol/Lanolin/Calamine/Znox 113 GM Tube 1 APPLIC TOPICAL (11:57)
[2024-07-30] MEDS: Pantoprazole Sodium 40 MG in 0.9% Normal Saline (100mL MB+) 100 ML 330 MG IV ×2 (12:07→22:13)
[2024-07-30] MEDS: 0.9% Normal Saline (100mL Bag) 100 ML 15 ML IV (12:33)
[2024-07-30 19:51] LABS: Vancomycin, Trough Level 13.6 ug/mL (5.0-15.0)
--- NOTE | 2024-07-30 19:58 | PCM.RX.CS ---
Consult Antibiotic Management Pharmacy has been consulted to manage selected antibiotic: Vancomycin Type of Intervention Type of Consult: Follow-up Labs Labs: Sodium 134 mmol/L (136-145) L 07/30/24 07:28 Potassium 3.7 mmol/L (3.5-5.1) 07/30/24 07:28 Chloride 105 mmol/L (98-107) 07/30/24 07:28 Carbon Dioxide 23.0 mmol/L (21.0-32.0) 07/30/24 07:28 Anion Gap 6 (5-15) 07/30/24 07:28 BUN 8 mg/dL (7-18) 07/30/24 07:28 Creatinine 0.32 mg/dL (0.70-1.30) L 07/30/24 07:28 Est GFR (MDRD) Af Amer 388 mL/min (>60) 07/30/24 07:28 Est GFR (MDRD) Non-Af 320 mL/min (>60) 07/30/24 07:28 BUN/Creatinine Ratio 24.8 RATIO (10-20) H 07/30/24 07:28 Glucose 89 mg/dL (74-106) 07/30/24 07:28 Vancomycin Trough 13.6 ug/mL (5.0-15.0) 07/30/24 19:20 Microbiology Microbiology: Microbiology 07/30/24 03:10 Urine, Random Streptococcus pneumoniae Antigen (M - Final 07/30/24 03:10 Urine, Random Legionella Antigen - Final 07/30/24 00:10 Nasal Secretion MRSA (PCR) - Final 07/29/24 17:42 Mucosa - Nasopharyngeal Respiratory Panel (PCR) - Final 07/29/24 13:18 Mucosa - Nose SARS-CoV-2, Influenza & RSV (PCR) - Final Pharmacy Plan for Drug Dosing Pharmacy Plan for Drug Dosing: VANCOMYCIN LEVEL RECEIVED Current Vancomycin Dose: 750MG Q8 Number of Doses Received: 3 Vancomycin Level: 13.6 mg/dL Hours Since Last Dose: 7 Renal Function: scr 0.32 mg/dL Renal Function Trend: stable Vancomycin Plan/Comments: 7 hour trough is subtherapeutic at 13.8 mg/dL (goal 15-20). Will increase dose to 1000mg Q8 and get a level prior to 4th dose of new reigmen. Pending Level: 07/31/24 @ 1930 Pharmacy Service will continue to monitor and adjust dosing as required.
[2024-07-30] MEDS: Vancomycin IV 1,000 MG/200 ML BAG 200 MG IV (20:27)
[2024-07-31] VITALS (10 sets, daily range): BP systolic 107–128; BP diastolic 72–92; PULSE 90–109; RESP 16–18; TEMP 36.3–37; O2SAT 93–95; BMI 20.7
[2024-07-31] MEDS: Vancomycin IV 1,000 MG/200 ML BAG 200 MG IV ×3 (04:30→20:12)
[2024-07-31] MEDS: Acetaminophen 325 MG Tablet 650 MG PO ×2 (06:01→22:51)
[2024-07-31] MEDS: oxyCODONE 5 MG Tablet PO ×4 (06:01→22:51)
[2024-07-31] MEDS: Piperacil/Tazobactam 3.375 GM in 0.9% Normal Saline (50mL MB+) 50 ML IV ×3 (06:03→22:50)
[2024-07-31 06:45] LABS: Absolute Lymphocyte Count 0.65 X10^3/uL (0.83-4.51); Absolute Neutrophil Count 7.3 X10^3/uL (2.0-7.7); Basophil# 0.03 X10^3/uL; Basophil% 0.3 % (0-1); Eosinophils% 5.6 % (0-5); Hematocrit 29.1 % (40-54); Lymphocyte # 0.65 X10^3/ul (0.83-4.51); Lymphocyte % 7.2 % (19-41); Mean Corp Hgb Conc 30.9 g/dL (32-36); Mean Corpuscular Hgb 25.1 pg (27.0-32.0); Mean Corpuscular Volume 81.1 fL (80-94); Mean Platelet Vol. 10.8 fl (6.2-12.0); Monocyte# 0.44 X10^3/uL; Monocyte% 4.9 % (0-10); NRBC Flagged by Analyzer 0 % (0-5); Neutrophil # 7.31 X10^3/uL (2.7-7.7); Neutrophil % 81.2 % (47-70); Platelet Count 250 K/mm3 (150-450); RBC Distribution Width CV 15.6 % (11.6-14.6); RBC Distribution Width SD 46.3 fl (35.1-43.9); Red Blood Count 3.59 M/mm3 (4.6-6.2)
[2024-07-31 07:19] LABS: Anion Gap 6 (5-15); BUN 6 mg/dL (7-18); BUN/Creat Ratio 15.1 RATIO (10-20); Calcium,Total 7.6 mg/dL (8.5-10.1); Chloride 109 mmol/L (98-107); EST Glomerular Filtration Rate 251 mL/min (>60); Est Glom Filt Rate - Afr Amer 303 mL/min (>60); Estimated Creatinine Clearance 213.53 ml/min; Glucose 102 mg/dL (74-106); Potassium 3.5 mmol/L (3.5-5.1); Sodium Level 138 mmol/L (136-145)
--- NOTE | 2024-07-31 07:20 | PN.HOSP_ITS ---
Reason for Visit Reason for Visit: Diagnoses Interstitial pulmonary disease, unspecified (07/29/24) Systemic inflammatory response syndrome (SIRS) of non-infectious origin without acute organ dysfunction (07/29/24) Subjective Subjective Feeling about the same, no significant improvement or worsening overnight though did get put on 2 L of O2 due to an 88% on room air Objective Data Objective Data Vital Signs: Vital Signs Temp Pulse Resp BP Pulse Ox O2 Del Method O2 Flow Rate 98.6 F 106 H 16 112/76 95 Nasal Cannula 2 07/31/24 04:35 07/31/24 04:37 07/31/24 04:35 07/31/24 04:35 07/31/24 04:35 07/31/24 04:37 07/31/24 04:37 Oxygen Flow Rate (L/min) 2 Oxygen Delivery Method Nasal Cannula Weight: 63.4 kg Body Mass Index (BMI) 20.7 Intake & Output: Intake and Output for Last 24 Hours 07/29/24 07/30/24 07/31/24 23:59 23:59 23:59 Intake Total 3145 / 3295 2750.25 / 2750.25 1349.75 / 1349.75 Output Total 550 / 550 Balance 3145 / 3295 2720.25 / 2720.25 799.75 / 799.75 Medical Nutrition Assessment Dietitian: Malnutrition Criteria Met Start: 07/30/24 12:45 Freq: Status: Active Protocol: Document 07/30/24 12:45 SLA (Rec: 07/30/24 12:45 SLA [email or web address]) Nutrition Malnutrition Evidence of Malnutrition Exists Yes Malnutrition (severe): Chronic Evidenced By Suboptimal Energy Intake ( Severe),Weight Loss (Severe), Physical Changes (Severe) Clinical Problem Chronic Disease or Condition Related Malnutrition Etiology related to colon cancer and possible mets Signs/Symptoms as evidenced by ~30% unintentional wt loss and po intake meeting <75% of est nutritional needs x 1 yr and obvious fat/muscle loss throughout body. Status Active Problem Recommendation Dietitian Recommendations/Changes Rec liberalize diet to Regular consistency per pt request Will order magic cup w/ lunch and dinner for increased nutrition if consumed - does not like ensure/boost/premier protein/CIB anymore Rec appetite stimulant to help encourage increased po intake May need to consider more aggressive nutrition support if po intake fails to improve and wt loss continues to help prevent further decline in pt nutritional status - if in accordance w/ pt/family wishes . Lab / Micro Data 07/31/24 06:20 07/31/24 06:20 Labs: Laboratory Results - last 24 hr 07/30/24 07:28: WBC 8.0, RBC 3.60 L, Hgb 9.1 L, Hct 29.1 L, MCV 80.8, MCH 25.3 L , MCHC 31.3 L, RDW Std Deviation 45.8 H, RDW Coeff of Elysia 15.6 H, Plt Count 256, MPV 10.8, Immature Gran % (Auto) 1.000 H, Neut % (Auto) 83.5 H, Lymph % (Auto) 6.1 L, [place] % (Auto) 5.1, Eos % (Auto) 3.9, Baso % (Auto) 0.4, Absolute Neuts (auto) 6.7, Absolute Lymphs (auto) 0.49 L, Nucleated RBC % 0, Sodium 134 L, Potassium 3.7, Chloride 105, Carbon Dioxide 23.0, Anion Gap 6, BUN 8, Creatinine 0.32 L, Estim Creat Clear Calc 266.50, Est GFR (MDRD) Af Amer 388, Est GFR (MDRD) Non-Af 320, BUN/Creatinine Ratio 24.8 H, Glucose 89, Calcium 7.4 L, Total Bilirubin 0.50, AST 59 H, ALT 13 L, Alkaline Phosphatase 84, Total Protein 4.9 L , Albumin 1.6 L, Globulin 3.3, Albumin/Globulin Ratio 0.5 L 07/30/24 19:20: Vancomycin Trough 13.6 07/31/24 06:20: WBC 9.0, RBC 3.59 L, Hgb 9.0 L, Hct 29.1 L, MCV 81.1, MCH 25.1 L , MCHC 30.9 L, RDW Std Deviation 46.3 H, RDW Coeff of Elysia 15.6 H, Plt Count 250, MPV 10.8, Immature Gran % (Auto) 0.800, Neut % (Auto) 81.2 H, Lymph % (Auto) 7.2 L, [place] % (Auto) 4.9, Eos % (Auto) 5.6 H, Baso % (Auto) 0.3, Absolute Neuts (auto) 7.3, Absolute Lymphs (auto) 0.65 L, Nucleated RBC % 0, Sodium 138, Potassium 3.5, Chloride 109 H, Carbon Dioxide 23.0, Anion Gap 6, BUN 6 L, C reatinine 0.40 L, Estim Creat Clear Calc 213.53, Est GFR (MDRD) Af Amer 303, Est GFR (MDRD) Non-Af 251, BUN/Creatinine Ratio 15.1, Glucose 102, Calcium 7.6 L Micro: Microbiology 07/30/24 03:10 Urine, Random Streptococcus pneumoniae Antigen (M - Final 07/30/24 03:10 Urine, Random Legionella Antigen - Final 07/30/24 00:10 Nasal Secretion MRSA (PCR) - Final 07/29/24 17:42 Mucosa - Nasopharyngeal Respiratory Panel (PCR) - Final 07/29/24 13:18 Mucosa - Nose SARS-CoV-2, Influenza & RSV (PCR) - Final Physical Exam Narrative General: Alert, oriented, very thin HEENT: Atraumatic, normocephalic Eyes: Anicteric, normal conjunctiva, extraocular movements grossly intact Neck: Supple Respiratory: No increased respiratory effort at rest, lungs remain somewhat diminished Cardiovascular: Regular rate and rhythm GI: Soft, nondistended Extremities: No edema Musculoskeletal: Moving all extremities Neuro: No overt focal neurological deficits Skin: No rashes appreciated Psych: Cooperative Assessment & Plan Assessment/Plan (1) Bilateral interstitial pneumonia: PLAN: Plan # Multifocal airspace opacities with hypoxia -Concerning for pneumonia versus metastatic adenocarcinoma -Patient on broad-spectrum antibiotics -Evaluated by pulmonology and discussed with evp chief exploration officer, if patient improves over the weekend with IV antibiotics he can be discharged on oral antibiotics and an outpatient CT but if not we will revisit possible bronchoscopy early in the week -Incentive spirometer ordered -Continue supportive care -07/31: Overnight patient with O2 sat to 88% now on 2 L and stable. Continuing broad-spectrum antibiotics, may need bronc next week if not improving # History of metastatic adenocarcinoma of the colon -Following with Dr. Yates on outpatient basis -Status post colon resection -Actively undergoing chemo -Will need to follow-up on discharge -07/31: May need bronc next week, patient's home pain medications were continued # Poor p.o. intake -Patient appears somewhat clinically dry, IV fluids -1/11: Continues to have poor p.o. intake, will continue IV fluids #DVT ppx: Lovenox subcu Evelin Estrada MD Charges/Coding Visit Charges Inpatient E&M: 73679 Subs Hosp L1
[2024-07-31] MEDS: 0.9% Normal Saline (1000mL) 1,000 ML 50 ML IV (08:12)
[2024-07-31] MEDS: NYSTATIN 500,000 UNIT/5 ML UDC 500000 UNIT PO ×4 (08:13→21:36)
[2024-07-31] MEDS: Enoxaparin 40 MG/0.4 ML Syringe SC (08:15)
[2024-07-31] MEDS: Menthol/Lanolin/Calamine/Znox 113 GM Tube 1 APPLIC TOPICAL (08:20)
[2024-07-31] MEDS: Pantoprazole Sodium 40 MG in 0.9% Normal Saline (100mL MB+) 100 ML 330 MG IV ×2 (10:24→21:37)
[2024-07-31] MEDS: Morphine 2 MG/ML Syringe IV ×4 (10:27→20:25)
[2024-07-31 19:49] LABS: Vancomycin, Trough Level 20.3 ug/mL (5.0-15.0)
--- NOTE | 2024-07-31 21:13 | PCM.RX.CS ---
Consult Antibiotic Management Pharmacy has been consulted to manage selected antibiotic: Vancomycin Type of Intervention Type of Consult: Follow-up Labs Labs: Sodium 138 mmol/L (136-145) 07/31/24 06:20 Potassium 3.5 mmol/L (3.5-5.1) 07/31/24 06:20 Chloride 109 mmol/L (98-107) H 07/31/24 06:20 Carbon Dioxide 23.0 mmol/L (21.0-32.0) 07/31/24 06:20 Anion Gap 6 (5-15) 07/31/24 06:20 BUN 6 mg/dL (7-18) L 07/31/24 06:20 Creatinine 0.40 mg/dL (0.70-1.30) L 07/31/24 06:20 Est GFR (MDRD) Af Amer 303 mL/min (>60) 07/31/24 06:20 Est GFR (MDRD) Non-Af 251 mL/min (>60) 07/31/24 06:20 BUN/Creatinine Ratio 15.1 RATIO (10-20) 07/31/24 06:20 Glucose 102 mg/dL (74-106) 07/31/24 06:20 Vancomycin Trough 20.3 ug/mL (5.0-15.0) H 07/31/24 19:13 Microbiology Microbiology: Microbiology 07/29/24 13:43 Blood Culture (Wb) - Port Blood Culture - Preliminary No growth in 48 hours. 07/30/24 03:10 Urine, Random Streptococcus pneumoniae Antigen (M - Final 07/30/24 03:10 Urine, Random Legionella Antigen - Final 07/30/24 00:10 Nasal Secretion MRSA (PCR) - Final 07/29/24 17:42 Mucosa - Nasopharyngeal Respiratory Panel (PCR) - Final 07/29/24 13:18 Mucosa - Nose SARS-CoV-2, Influenza & RSV (PCR) - Final Goal Trough Goal Trough: 15-20 mcg/mL Pharmacy Plan for Drug Dosing Pharmacy Plan for Drug Dosing: Pharmacy Service will continue to monitor and adjust dosing as required. TROUGH 20.3 @ 8 HOURS. CONTINUE CURRENT DOSE AND FOLLOW UP TROUGH TOMORROW DUE TO 20.3 LEVEL TONIGHT. Follow-Up Labs Follow-Up Labs: Trough: Vancomycin Date/Time Labs Ordered Labs to be done on [date and time ordered]: 08/01 @ 1930
[2024-08-01] MEDS: Morphine 2 MG/ML Syringe IV ×6 (01:44→20:54)
[2024-08-01] MEDS: 0.9% Saline Lock 10 ML Syringe IV ×2 (01:45→15:38)
[2024-08-01] MEDS: Acetaminophen 325 MG Tablet 650 MG PO ×2 (04:29→22:43)
[2024-08-01] MEDS: Vancomycin IV 1,000 MG/200 ML BAG 200 MG IV ×2 (04:29→11:41)
[2024-08-01] MEDS: oxyCODONE 5 MG Tablet PO ×5 (04:30→22:44)
[2024-08-01 04:34] VITALS: BP 123/85; PULSE 98; RESP 18; TEMP 36.4; O2SAT 92
[2024-08-01 05:51] LABS: Absolute Lymphocyte Count 0.83 X10^3/uL (0.83-4.51); Absolute Neutrophil Count 6.1 X10^3/uL (2.0-7.7); Basophil# 0.03 X10^3/uL; Basophil% 0.4 % (0-1); Eosinophil# 0.37 X10^3/uL; Eosinophils% 4.7 % (0-5); Hematocrit 29.6 % (40-54); Hemoglobin 9.1 g/dL (13.0-16.5); Lymphocyte # 0.83 X10^3/ul (0.83-4.51); Lymphocyte % 10.5 % (19-41); Mean Corp Hgb Conc 30.7 g/dL (32-36); Mean Corpuscular Volume 81.3 fL (80-94); Mean Platelet Vol. 11.5 fl (6.2-12.0); Monocyte# 0.47 X10^3/uL; NRBC Flagged by Analyzer 0 % (0-5); Neutrophil % 77.5 % (47-70); Platelet Count 256 K/mm3 (150-450); RBC Distribution Width CV 15.7 % (11.6-14.6); RBC Distribution Width SD 46.5 fl (35.1-43.9); Red Blood Count 3.64 M/mm3 (4.6-6.2); White Blood Count 7.9 K/mm3 (4.4-11.0)
[2024-08-01] MEDS: Piperacil/Tazobactam 3.375 GM in 0.9% Normal Saline (50mL MB+) 50 ML IV ×3 (05:55→22:43)
[2024-08-01 06:24] LABS: Anion Gap 6 (5-15); BUN 5 mg/dL (7-18); Calcium,Total 7.5 mg/dL (8.5-10.1); Chloride 107 mmol/L (98-107); Creatinine, Serum 0.45 mg/dL (0.70-1.30); EST Glomerular Filtration Rate 215 mL/min (>60); Est Glom Filt Rate - Afr Amer 261 mL/min (>60); Estimated Creatinine Clearance 189.81 ml/min; Glucose 107 mg/dL (74-106); Potassium 3.2 mmol/L (3.5-5.1); Sodium Level 137 mmol/L (136-145)
--- NOTE | 2024-08-01 07:22 | PN.HOSP_ITS ---
Reason for Visit Reason for Visit: Diagnoses Interstitial pulmonary disease, unspecified (07/29/24) Systemic inflammatory response syndrome (SIRS) of non-infectious origin without acute organ dysfunction (07/29/24) Subjective Subjective Breathing continues to wax and wane, also feeling little bit tired and dehydrated, turned up to 3 L O2 overnight Objective Data Objective Data Vital Signs: Vital Signs Temp Pulse Resp BP Pulse Ox O2 Del Method O2 Flow Rate 97.6 F L 98 18 123/85 H 92 Nasal Cannula 3 08/01/24 04:34 08/01/24 04:34 08/01/24 04:34 08/01/24 04:34 08/01/24 04:34 08/01/24 04:47 08/01/24 04:47 Oxygen Flow Rate (L/min) 3 Oxygen Delivery Method Nasal Cannula Weight: 63.4 kg Body Mass Index (BMI) 20.7 Intake & Output: Intake and Output for Last 24 Hours 07/30/24 07/31/24 08/01/24 23:59 23:59 23:59 Intake Total 2750.25 / 2750.25 2632.25 / 2632.25 1687.5 / 1687.5 Output Total 30 750 / 750 500 / 500 Balance 2720.25 / 2720.25 1882.25 / 1882.25 1187.5 / 1187.5 Medical Nutrition Assessment Dietitian: Malnutrition Criteria Met Start: 07/30/24 12:45 Freq: Status: Active Protocol: Document 07/30/24 12:45 SLA (Rec: 07/30/24 12:45 SLA [email or web address]) Nutrition Malnutrition Evidence of Malnutrition Exists Yes Malnutrition (severe): Chronic Evidenced By Suboptimal Energy Intake ( Severe),Weight Loss (Severe), Physical Changes (Severe) Clinical Problem Chronic Disease or Condition Related Malnutrition Etiology related to colon cancer and possible mets Signs/Symptoms as evidenced by ~30% unintentional wt loss and po intake meeting <75% of est nutritional needs x 1 yr and obvious fat/muscle loss throughout body. Status Active Problem Recommendation Dietitian Recommendations/Changes Rec liberalize diet to Regular consistency per pt request Will order magic cup w/ lunch and dinner for increased nutrition if consumed - does not like ensure/boost/premier protein/CIB anymore Rec appetite stimulant to help encourage increased po intake May need to consider more aggressive nutrition support if po intake fails to improve and wt loss continues to help prevent further decline in pt nutritional status - if in accordance w/ pt/family wishes . Lab / Micro Data 08/01/24 05:04 08/01/24 05:04 Labs: Laboratory Results - last 24 hr 07/31/24 19:13: Vancomycin Trough 20.3 H 08/01/24 05:04: WBC 7.9, RBC 3.64 L, Hgb 9.1 L, Hct 29.6 L, MCV 81.3, MCH 25.0 L , MCHC 30.7 L, RDW Std Deviation 46.5 H, RDW Coeff of Elysia 15.7 H, Plt Count 256, MPV 11.5, Immature Gran % (Auto) 0.900, Neut % (Auto) 77.5 H, Lymph % (Auto) 10.5 L, [place] % (Auto) 6.0, Eos % (Auto) 4.7, Baso % (Auto) 0.4, Absolute Neuts (auto) 6.1, Absolute Lymphs (auto) 0.83, Nucleated RBC % 0, Sodium 137, P otassium 3.2 L, Chloride 107, Carbon Dioxide 24.0, Anion Gap 6, BUN 5 L, C reatinine 0.45 L, Estim Creat Clear Calc 189.81, Est GFR (MDRD) Af Amer 261, Est GFR (MDRD) Non-Af 215, BUN/Creatinine Ratio 11.0, Glucose 107 H, Calcium 7.5 L Micro: Microbiology 07/29/24 13:43 Blood Culture (Wb) - Port Blood Culture - Preliminary No growth in 48 hours. 07/30/24 03:10 Urine, Random Streptococcus pneumoniae Antigen (M - Final 07/30/24 03:10 Urine, Random Legionella Antigen - Final 07/30/24 00:10 Nasal Secretion MRSA (PCR) - Final 07/29/24 17:42 Mucosa - Nasopharyngeal Respiratory Panel (PCR) - Final 07/29/24 13:18 Mucosa - Nose SARS-CoV-2, Influenza & RSV (PCR) - Final Physical Exam Narrative General: Alert, oriented, very thin HEENT: Atraumatic, normocephalic Eyes: Anicteric, normal conjunctiva, extraocular movements grossly intact Neck: Supple Respiratory: Some scattered crackles, no overt wheezes, lungs remain somewhat diminished Cardiovascular: Regular rate and rhythm GI: Soft, nondistended Extremities: No edema Musculoskeletal: Moving all extremities Neuro: No overt focal neurological deficits Skin: No rashes appreciated Psych: Cooperative Assessment & Plan Assessment/Plan (1) Bilateral interstitial pneumonia: PLAN: Plan # Multifocal airspace opacities with hypoxia -Concerning for pneumonia versus metastatic adenocarcinoma -Patient on broad-spectrum antibiotics -Evaluated by pulmonology and discussed with procedure rn, if patient improves over the weekend with IV antibiotics he can be discharged on oral antibiotics and an outpatient CT but if not we will revisit possible bronchoscopy early in the week -Incentive spirometer ordered -Continue supportive care -07/31: Overnight patient with O2 sat to 88% now on 2 L and stable. Continuing broad-spectrum antibiotics, may need bronc next week if not improving -08/01: Remains on O2 despite antibiotics, may need bronchoscopy per previous discussion with pulmonology. Patient will be made n.p.o. at midnight in the event this would be able to happen tomorrow if pulmonology deems this necessary. Also hold Lovenox and put order for SCDs. Will resume Lovenox if no bronchoscopy planned # History of metastatic adenocarcinoma of the colon -Following with Dr. Yates on outpatient basis -Status post colon resection -Actively undergoing chemo -Will need to follow-up on discharge -07/31: May need bronc next week, patient's home pain medications were continued -08/01: Titrate pain medication as needed, supportive care # Poor p.o. intake -Patient appears somewhat clinically dry, IV fluids -07/31: Continues to have poor p.o. intake, will continue IV fluids -08/01: Minimize time patient is n.p.o. as possible, Magic cup of lunch and dinner #DVT ppx: Holding Lovenox, SCDs Evelin Estrada MD Time spent in the patient's overall evaluation,decision-making process, review of diagnostic data, adjustment of management, discussion with other providers, nursing nursing and ancillary staff involved in patient's care documentation, 36 Minutes Charges/Coding Visit Charges Inpatient E&M: 21457 [facility] Hosp L2
[2024-08-01 07:51] VITALS: O2SAT 94
[2024-08-01 08:05] VITALS: BP 123/89; PULSE 87; RESP 18; TEMP 36.2; O2SAT 94
[2024-08-01] MEDS: NYSTATIN 500,000 UNIT/5 ML UDC 500000 UNIT PO ×4 (08:31→20:58)
[2024-08-01] MEDS: 0.9% Normal Saline (1000mL) 1,000 ML 50 ML IV (08:31)
[2024-08-01] MEDS: Potassium Chloride 10mEq/100mL 10 MEQ/100 ML IV.SOLN. 100 MEQ IV BOLUS ×2 (09:03→10:17)
[2024-08-01] MEDS: Pantoprazole Sodium 40 MG in 0.9% Normal Saline (100mL MB+) 100 ML 330 MG IV ×2 (10:18→20:58)
[2024-08-01 11:52] VITALS: BP 122/81; PULSE 99; RESP 16; TEMP 36.3; O2SAT 95
[2024-08-01 17:50] VITALS: BP 136/96; PULSE 106; RESP 18; TEMP 36.4; O2SAT 93
[2024-08-01] MEDS: BENZOCAINE/MENTHOL 1 LOZENGE MUCOUS MEM (17:58)
[2024-08-01 19:35] LABS: Vancomycin, Trough Level 25.6 ug/mL (5.0-15.0)
--- NOTE | 2024-08-01 19:50 | PCM.RX.CS ---
Consult Antibiotic Management Pharmacy has been consulted to manage selected antibiotic: Vancomycin Type of Intervention Type of Consult: Follow-up Labs Labs: Sodium 137 mmol/L (136-145) 08/01/24 05:04 Potassium 3.2 mmol/L (3.5-5.1) L 08/01/24 05:04 Chloride 107 mmol/L (98-107) 08/01/24 05:04 Carbon Dioxide 24.0 mmol/L (21.0-32.0) 08/01/24 05:04 Anion Gap 6 (5-15) 08/01/24 05:04 BUN 5 mg/dL (7-18) L 08/01/24 05:04 Creatinine 0.45 mg/dL (0.70-1.30) L 08/01/24 05:04 Est GFR (MDRD) Af Amer 261 mL/min (>60) 08/01/24 05:04 Est GFR (MDRD) Non-Af 215 mL/min (>60) 08/01/24 05:04 BUN/Creatinine Ratio 11.0 RATIO (10-20) 08/01/24 05:04 Glucose 107 mg/dL (74-106) H 08/01/24 05:04 Vancomycin Trough 25.6 ug/mL (5.0-15.0) H 08/01/24 19:04 Microbiology Microbiology: Microbiology 07/29/24 13:43 Blood Culture (Wb) - Port Blood Culture - Preliminary No growth in 48 hours. 07/30/24 03:10 Urine, Random Streptococcus pneumoniae Antigen (M - Final 07/30/24 03:10 Urine, Random Legionella Antigen - Final 07/30/24 00:10 Nasal Secretion MRSA (PCR) - Final 07/29/24 17:42 Mucosa - Nasopharyngeal Respiratory Panel (PCR) - Final 07/29/24 13:18 Mucosa - Nose SARS-CoV-2, Influenza & RSV (PCR) - Final Goal Trough Goal Trough: 15-20 mcg/mL Pharmacy Plan for Drug Dosing Pharmacy Plan for Drug Dosing: Pharmacy Service will continue to monitor and adjust dosing as required. TROUGH 25.6 @ 7.5 HOURS. HOLD DOSE AND DRAW RANDOM LEVEL IN 10 HOURS Follow-Up Labs Follow-Up Labs: Trough: Vancomycin Date/Time Labs Ordered Labs to be done on [date and time ordered]: 08/02 @ 0500
[2024-08-01 20:42] VITALS: BP 131/88; PULSE 107; RESP 20; TEMP 36.8; O2SAT 94
[2024-08-01] MEDS: 0.9% Normal Saline (100mL Bag) 100 ML 15 ML IV (22:43)
[2024-08-02] VITALS (27 sets, daily range): BP systolic 97–128; BP diastolic 69–100; PULSE 84–124; RESP 16–26; TEMP 36.4–36.8; O2SAT 70–96; BMI 23.6; BMI 23.5
--- NOTE | 2024-08-02 | FLU_PTH ---
PATIENT: ISMAEL BOLAND LOC: ICU U#:[id number] AGE/SX: 44/M ROOM: [place] [address] RE07/29/[address]: Dr. Ang Redman MD : 1980 BED: 1 DIS: 08/06/2024 SPEC #: [id number] RECD: 08/02/24 14:58 STATUS: SOUT REQ #: [id number] ALMITA: 08/02/24 00:[address]: James Phillips DEPT: CYTOLOGY RECD BY: Rhett Davis ENTERED: 08/03/24 07:52 SP TYPE: Fluid OTHR DR: MD Dr. Martin Cruz MD Dr. Autumn L White, MD Dr. Bruce Arthur, MD Dr. Christopher Ranney, MD Dr. Derek Brown, DO Dr. David P Myers, MD Dr. Edward Matheis, MD Dr. Gautam Baskaran, MD Dr. Yordanos Habtegebriel, MD Dr. Hemant Dand, MD Dr. Jose Ochoa, MD Dr. Justin Wong, MD Dr. Kimber Foust, MD Dr. Lamia Aljundi, MD Dr. Nicholas F Kotsonis, MD Dr. Pritam Ghosh, MD Dr. Pavan Irukulla, MD Dr. Paige Pierce, MD Dr. Saad Farooqi, MD Dr. Sukhdeep Dhesi, DO Dr. Sujoy Gill, MD Dr. Soleyah Groves, MD Dr. Timothy Fernstrom, DO Dr. Vikram Anand, MD Dr. William Haden, MD Tissues: A - Bronchus of right lower lobe B - Bronchus of left lower lobe Procedures: PC (control) Special Stain Group II Special Stain Group I Surgery Specimen Level IV AFB Stain (control) GMS Stain (control) Cytospin Fluid Comments: @ Ordering doctor for SSII edited from to @ by MARIBELL at 08/03/24827 @ Ordering doctor for SUIV edited from to @ by MARIBELL at 08/03/24827 @ Ordering doctor for CYSPIN edited from to @ by MARIBELL at 08/03/24827 @ Submitting doctor edited from to @ by MARIBELL at 08/03/24827 HEADER OPERATION: Bronchoscopy PRE-OP DIAGNOSIS: Abnormal chest CT TISSUE SUBMITTED: Bronchoscopy fluid for cytology DIAGNOSIS CYTOLOGY A. Right lower lobe fluid (cytospins and cellblock): Negative for malignant cells. See comment. B. Left lower lobe fluid (cytospins and cellblock): Negative for malignant cells. See comment. 08/04/2024 COMMENT A & B. Special stains for acid fast bacilli, fungi and pneumocystis carinii (jirovecii) are negative for organisms; matched controls are appropriate. Clinical correlation and appropriate follow up are necessary. CYTOLOGY STUDY Slides are reviewed. CYTOLOGY GROSS A. Received is 5 ml of cloudy fluid labeled with the patient's name and and designated per the requisition as Right lower lobe fluid. Submitted for cytology preparation including cell block. B. Received is 10 ml of cloudy fluid labeled with the patient's name and and designated per the requisition as Left lower lobe fluid. Submitted for cytology preparation including cell block. Mr 08/03/2024 TC:5 CPT: 18051s9,21815t3,50629r4
[2024-08-02] MEDS: Piperacil/Tazobactam 3.375 GM in 0.9% Normal Saline (50mL MB+) 50 ML IV ×2 (04:45→16:30)
[2024-08-02] MEDS: Morphine 2 MG/ML Syringe IV ×5 (04:46→20:12)
[2024-08-02 05:22] LABS: Absolute Lymphocyte Count 0.73 X10^3/uL (0.83-4.51); Absolute Neutrophil Count 7.6 X10^3/uL (2.0-7.7); Basophil# 0.02 X10^3/uL; Basophil% 0.2 % (0-1); Eosinophil# 0.31 X10^3/uL; Eosinophils% 3.3 % (0-5); Hemoglobin 9.3 g/dL (13.0-16.5); Lymphocyte # 0.73 X10^3/ul (0.83-4.51); Lymphocyte % 7.8 % (19-41); Mean Corpuscular Hgb 25.2 pg (27.0-32.0); Mean Corpuscular Volume 81.3 fL (80-94); Mean Platelet Vol. 10.9 fl (6.2-12.0); Monocyte# 0.63 X10^3/uL; Monocyte% 6.7 % (0-10); NRBC Flagged by Analyzer 0 % (0-5); Neutrophil # 7.63 X10^3/uL (2.7-7.7); Neutrophil % 81.1 % (47-70); Platelet Count 261 K/mm3 (150-450); RBC Distribution Width SD 47.2 fl (35.1-43.9); Red Blood Count 3.69 M/mm3 (4.6-6.2); White Blood Count 9.4 K/mm3 (4.4-11.0)
[2024-08-02 05:34] LABS: Vancomycin, Random Level 17.1 ug/mL (0.0-15.0)
[2024-08-02 05:41] LABS: Anion Gap 4 (5-15); BUN 7 mg/dL (7-18); BUN/Creat Ratio 9.8 RATIO (10-20); Calcium,Total 7.6 mg/dL (8.5-10.1); Chloride 109 mmol/L (98-107); Creatinine, Serum 0.71 mg/dL (0.70-1.30); EST Glomerular Filtration Rate 128 mL/min (>60); Est Glom Filt Rate - Afr Amer 155 mL/min (>60); Estimated Creatinine Clearance 134.15 ml/min; Glucose 95 mg/dL (74-106); Potassium 3.7 mmol/L (3.5-5.1); Sodium Level 139 mmol/L (136-145)
[2024-08-02] MEDS: oxyCODONE 5 MG Tablet PO ×3 (07:06→23:41)
[2024-08-02] MEDS: Vancomycin HCl 750 MG in 0.9% Normal Saline (250mL Bag) 250 ML 250 MG IV ×2 (07:06→14:56)
[2024-08-02] MEDS: 0.9% Normal Saline (1000mL) 1,000 ML 50 ML IV (08:28)
[2024-08-02] MEDS: NYSTATIN 500,000 UNIT/5 ML UDC 500000 UNIT PO ×3 (08:30→23:38)
[2024-08-02] MEDS: 0.9% Saline Lock 10 ML Syringe IV ×4 (08:50→23:37)
--- NOTE | 2024-08-02 10:24 | PN.CC_ITS ---
Assessment & Plan Assessment/Plan (1) Bilateral interstitial pneumonia: PLAN: Plan RECOMMENDATIONS: 1. Continue empiric broad-spectrum antimicrobials for now. 2. Will proceed with bronchoscopy with BAL this afternoon. 3. Initiate gentle diuresis this afternoon as ordered. 4. Encourage incentive spirometer use and mobilize patient as tolerated. 5. Continue appropriate DVT prophylaxis. IMPRESSIONS: 1. Shortness of breath with multifocal airspace opacities on chest imaging concerning for pneumonia The patient has a history of metastatic adenocarcinoma of the colon and is currently undergoing chemotherapy. The patient began to develop generalized malaise and shortness of breath in between and . Unfortunately, the patient's symptoms continued to persist. Therefore, the patient was referred to the emergency department to be evaluated for pulmonary embolism, which was ultimately ruled out. The patient has evidence of bibasilar reticular nodular opacities concerning for pneumonia. He has been maintained on broad-spectrum antimicrobial therapy, despite negative infectious workup. The patient's oxygen requirement increased over the course of the weekend, which is likely multifactorial and related to his volume status and underlying infection. Therefore, we will plan to proceed with bronchoscopy with BAL this afternoon. In addition, I have ordered Lasix for the patient to receive this afternoon. Physical therapy is to work with the patient as well. 2. History of metastatic adenocarcinoma of the colon/protein calorie malnutrition/hypertension/anemia Complicates care, management, recovery and prognosis. Continue supportive care as noted above. This note was generated with [employer] dictation software. It may contain incorrect words, spelling, and punctuation that were not noted in checking the note before signing. Subjective Subjective The patient was seen and examined at the bedside this morning. Events from the last 24 hours have been reviewed. The patient is currently afebrile, hemodynamically stable and maintaining appropriate oxygen saturations on 4 L/min via nasal cannula. The patient reported that he still feels unwell. It does appear that his oxygen requirement has increased over the weekend. The patient is overall net positive from a volume perspective for the hospitalization. White blood cell count remains normal. Hemoglobin is stable at 9.3 g/dL. Platelet count is normal. Objective Data Objective Data The patient's most recent lab work, culture data and imaging studies have all been personally reviewed. Infectious workup has been unrevealing to date. Vital Signs: Vital Signs Temp Pulse Resp BP Pulse Ox O2 Del Method O2 Flow Rate 98.3 F 97 16 128/88 H 93 Nasal Cannula 4 08/02/24 08:40 08/02/24 08:40 08/02/24 08:40 08/02/24 08:40 08/02/24 08:40 08/02/24 08:40 08/02/24 08:40 Oxygen Flow Rate (L/min) 4 Oxygen Delivery Method Nasal Cannula Weight: 159 lb 2.78 oz Body Mass Index (BMI) 23.6 Intake & Output: Intake and Output for Last 24 Hours 07/31/24 08/01/24 08/02/24 23:59 23:59 23:59 Intake Total 2632.25 / 2632.25 2757.5 / 2757.5 1695.42 / 1695.42 Output Total 750 / 750 1075 / 1075 1000 / 1000 Balance 1882.25 / 1882.25 1682.5 / 1682.5 695.42 / 695.42 Medical Nutrition Assessment Dietitian: Malnutrition Criteria Met Start: 07/30/24 12:45 Freq: Status: Active Protocol: Document 07/30/24 12:45 SLA (Rec: 07/30/24 12:45 SLA [email or web address]) Nutrition Malnutrition Evidence of Malnutrition Exists Yes Malnutrition (severe): Chronic Evidenced By Suboptimal Energy Intake ( Severe),Weight Loss (Severe), Physical Changes (Severe) Clinical Problem Chronic Disease or Condition Related Malnutrition Etiology related to colon cancer and possible mets Signs/Symptoms as evidenced by ~30% unintentional wt loss and po intake meeting <75% of est nutritional needs x 1 yr and obvious fat/muscle loss throughout body. Status Active Problem Recommendation Dietitian Recommendations/Changes Rec liberalize diet to Regular consistency per pt request Will order magic cup w/ lunch and dinner for increased nutrition if consumed - does not like ensure/boost/premier protein/CIB anymore Rec appetite stimulant to help encourage increased po intake May need to consider more aggressive nutrition support if po intake fails to improve and wt loss continues to help prevent further decline in pt nutritional status - if in accordance w/ pt/family wishes . Lab / Micro Data Attestation: I reviewed the patient's lab results. 08/02/24 05:00 08/02/24 05:00 Labs: Laboratory Results - last 24 hr 08/01/24 19:04: Vancomycin Trough 25.6 H 08/02/24 05:00: WBC 9.4, RBC 3.69 L, Hgb 9.3 L, Hct 30.0 L, MCV 81.3, MCH 25.2 L , MCHC 31.0 L, RDW Std Deviation 47.2 H, RDW Coeff of Elysia 16.0 H, Plt Count 261, MPV 10.9, Immature Gran % (Auto) 0.900, Neut % (Auto) 81.1 H, Lymph % (Auto) 7.8 L, [place] % (Auto) 6.7, Eos % (Auto) 3.3, Baso % (Auto) 0.2, Absolute Neuts (auto) 7.6, Absolute Lymphs (auto) 0.73 L, Nucleated RBC % 0, Sodium 139, Potassium 3.7, Chloride 109 H, Carbon Dioxide 26.0, Anion Gap 4 L, BUN 7, Creatinine 0.71, Estim Creat Clear Calc 134.15, Est GFR (MDRD) Af Amer 155, Est GFR (MDRD) Non-Af 128, BUN/Creatinine Ratio 9.8 L, Glucose 95, Calcium 7.6 L, Random Vancomycin 17.1 H Micro: Microbiology 07/29/24 13:43 Blood Culture (Wb) - Port Blood Culture - Preliminary No growth in 48 hours. 07/30/24 03:10 Urine, Random Streptococcus pneumoniae Antigen (M - Final 07/30/24 03:10 Urine, Random Legionella Antigen - Final 07/30/24 00:10 Nasal Secretion MRSA (PCR) - Final 07/29/24 17:42 Mucosa - Nasopharyngeal Respiratory Panel (PCR) - Final 07/29/24 13:18 Mucosa - Nose SARS-CoV-2, Influenza & RSV (PCR) - Final Physical Exam Const alert and no apparent distress General Appearance: cooperative and ill appearing HEENT normocephalic and head/scalp atraumatic HEENT Narrative: Dry mucous membranes no thrush present Eyes PERRL, EOMs intact bilaterally and conjunctivae normal Neck supple General: trachea midline Chest inspection of chest normal Resp normal respiratory effort Auscultation: rales and diminished lung sounds; Negative for rhonchi or wheezes Cardio regular rate and regular rhythm GI normal to inspection, nondistended, normoactive bowel sounds Extremity no clubbing, cyanosis or edema Skin no rashes or lesions noted Neuro CN's II-XII intact bilaterally, moves all extremities and no focal motor deficits Psych Mood & Affect: flat affect Charges/Coding Visit Charges Inpatient E&M: 71675 Subs Hosp L2
--- NOTE | 2024-08-02 10:54 | PN.HOSP_ITS ---
Reason for Visit Reason for Visit: Diagnoses Interstitial pulmonary disease, unspecified (07/29/24) Systemic inflammatory response syndrome (SIRS) of non-infectious origin without acute organ dysfunction (07/29/24) Subjective Subjective Continues to have shortness of breath waxing and waning in intensity Objective Data Objective Data Vital Signs: Vital Signs Temp Pulse Resp BP Pulse Ox O2 Del Method O2 Flow Rate 98.3 F 97 16 128/88 H 93 Nasal Cannula 4 08/02/24 08:40 08/02/24 08:40 08/02/24 08:40 08/02/24 08:40 08/02/24 08:40 08/02/24 08:40 08/02/24 08:40 Oxygen Flow Rate (L/min) 4 Oxygen Delivery Method Nasal Cannula Weight: 72.2 kg Body Mass Index (BMI) 23.6 Intake & Output: Intake and Output for Last 24 Hours 07/31/24 08/01/24 08/02/24 23:59 23:59 23:59 Intake Total 2632.25 / 2632.25 2757.5 / 2757.5 1815.00 / 1815.00 Output Total 750 / 750 1075 / 1075 1000 / 1000 Balance 1882.25 / 1882.25 1682.5 / 1682.5 815.00 / 815.00 Medical Nutrition Assessment Dietitian: Malnutrition Criteria Met Start: 07/30/24 12:45 Freq: Status: Active Protocol: Document 07/30/24 12:45 SLA (Rec: 07/30/24 12:45 SLA [id number]) Nutrition Malnutrition Evidence of Malnutrition Exists Yes Malnutrition (severe): Chronic Evidenced By Suboptimal Energy Intake ( Severe),Weight Loss (Severe), Physical Changes (Severe) Clinical Problem Chronic Disease or Condition Related Malnutrition Etiology related to colon cancer and possible mets Signs/Symptoms as evidenced by ~30% unintentional wt loss and po intake meeting <75% of est nutritional needs x 1 yr and obvious fat/muscle loss throughout body. Status Active Problem Recommendation Dietitian Recommendations/Changes Rec liberalize diet to Regular consistency per pt request Will order magic cup w/ lunch and dinner for increased nutrition if consumed - does not like ensure/boost/premier protein/CIB anymore Rec appetite stimulant to help encourage increased po intake May need to consider more aggressive nutrition support if po intake fails to improve and wt loss continues to help prevent further decline in pt nutritional status - if in accordance w/ pt/family wishes . Lab / Micro Data 08/02/24 05:00 08/02/24 05:00 Labs: Laboratory Results - last 24 hr 08/01/24 19:04: Vancomycin Trough 25.6 H 08/02/24 05:00: WBC 9.4, RBC 3.69 L, Hgb 9.3 L, Hct 30.0 L, MCV 81.3, MCH 25.2 L , MCHC 31.0 L, RDW Std Deviation 47.2 H, RDW Coeff of Elysia 16.0 H, Plt Count 261, MPV 10.9, Immature Gran % (Auto) 0.900, Neut % (Auto) 81.1 H, Lymph % (Auto) 7.8 L, [place] % (Auto) 6.7, Eos % (Auto) 3.3, Baso % (Auto) 0.2, Absolute Neuts (auto) 7.6, Absolute Lymphs (auto) 0.73 L, Nucleated RBC % 0, Sodium 139, Potassium 3.7, Chloride 109 H, Carbon Dioxide 26.0, Anion Gap 4 L, BUN 7, Creatinine 0.71, Estim Creat Clear Calc 134.15, Est GFR (MDRD) Af Amer 155, Est GFR (MDRD) Non-Af 128, BUN/Creatinine Ratio 9.8 L, Glucose 95, Calcium 7.6 L, Random Vancomycin 17.1 H Micro: Microbiology 07/29/24 13:43 Blood Culture (Wb) - Port Blood Culture - Preliminary No growth in 48 hours. 07/30/24 03:10 Urine, Random Streptococcus pneumoniae Antigen (M - Final 07/30/24 03:10 Urine, Random Legionella Antigen - Final 07/30/24 00:10 Nasal Secretion MRSA (PCR) - Final 07/29/24 17:42 Mucosa - Nasopharyngeal Respiratory Panel (PCR) - Final 07/29/24 13:18 Mucosa - Nose SARS-CoV-2, Influenza & RSV (PCR) - Final Physical Exam Narrative General: Alert, oriented, very thin HEENT: Atraumatic, normocephalic Eyes: Anicteric, normal conjunctiva, extraocular movements grossly intact Neck: Supple Respiratory: Some scattered crackles, slight wheeze on the left, lungs remain somewhat diminished Cardiovascular: Intermittently low-grade sinus tachycardia GI: Soft, nondistended Extremities: No edema Musculoskeletal: Moving all extremities Neuro: No overt focal neurological deficits Skin: No rashes appreciated Psych: Cooperative Assessment & Plan Assessment/Plan (1) Bilateral interstitial pneumonia: PLAN: Plan # Multifocal airspace opacities with hypoxia -Concerning for pneumonia versus metastatic adenocarcinoma -Patient on broad-spectrum antibiotics -Evaluated by pulmonology and discussed with maintenance and custodian supervisor, if patient improves over the weekend with IV antibiotics he can be discharged on oral antibiotics and an outpatient CT but if not we will revisit possible bronchoscopy early in the week -Incentive spirometer ordered -Continue supportive care -07/31: Overnight patient with O2 sat to 88% now on 2 L and stable. Continuing broad-spectrum antibiotics, may need bronc next week if not improving -08/01: Remains on O2 despite antibiotics, may need bronchoscopy per previous discussion with pulmonology. Patient will be made n.p.o. at midnight in the event this would be able to happen tomorrow if pulmonology deems this necessary. Also hold Lovenox and put order for SCDs. Will resume Lovenox if no bronchoscopy planned -08/02: Patient for bronchoscopy today, continuing antibiotics at this time and supportive care. Discussed with pulmonology # History of metastatic adenocarcinoma of the colon -Following with Dr. Yates on outpatient basis -Status post colon resection -Actively undergoing chemo -Will need to follow-up on discharge -07/31: May need bronc next week, patient's home pain medications were continued -08/01: Titrate pain medication as needed, supportive care -08/02: Continue supportive care # Poor p.o. intake -Patient appears somewhat clinically dry, IV fluids -07/31: Continues to have poor p.o. intake, will continue IV fluids -08/01: Minimize time patient is n.p.o. as possible, Magic cup of lunch and dinner -08/02: Resume diet when possible after bronchoscopy #DVT ppx: Holding Lovenox, SCDs Evelin Estrada MD Charges/Coding Visit Charges Inpatient E&M: 51307 [facility] Hosp L1
[2024-08-02] MEDS: Pantoprazole Sodium 40 MG in 0.9% Normal Saline (100mL MB+) 100 ML 330 MG IV ×2 (11:00→23:37)
--- NOTE | 2024-08-02 12:20 | PCM.PRE.AN2 ---
ASA Classification* ASA Classification ASA Classification: 3 Assessment & Plan Anesthesia* Anesthesia Assessment Anesthesia Assessment: Discussed sedation and/or anesthesia options, risks, benefits, and alternatives with patient/parents/legal guardian/POA. Questions invited. The patient/parents/legal guardian/POA seems to understand and agrees to proceed with anesthesia plan. Reviewed the physical assessment, medical history, allergy history and patient home medications list prior to surgery/procedure/anesthetic and documented any changes. Performed airway and anesthesia risk assessments. Anesthesia Type Anesthesia Type: MAC Anesthesia Focused Assessment* Temperature: 98.3 F Pulse Rate: 97 Blood Pressure: 128/88 Respiratory Rate: 16 Pulse Ox: 93 Oxygen Flow Rate (L/min): 4 Airway Assessment Mouth opens: >3 cm Mallampati Score: II Focused Labs Anesthesia Preop lab: CBC WBC 9.4 K/mm3 (4.4-11.0) 08/02/24 05:00 RBC 3.69 M/mm3 (4.6-6.2) L 08/02/24 05:00 Hgb 9.3 g/dL (13.0-16.5) L 08/02/24 05:00 Hct 30.0 % (40-54) L 08/02/24 05:00 Plt Count 261 K/mm3 (150-450) 08/02/24 05:00 CHEMISTRY Potassium 3.7 mmol/L (3.5-5.1) 08/02/24 05:00 Sodium 139 mmol/L (136-145) 08/02/24 05:00 Magnesium 1.7 mg/dL (1.6-2.6) 07/29/24 11:56 Phosphorus 3.9 mg/dL (2.5-4.9) 07/29/24 11:56 BUN 7 mg/dL (7-18) 08/02/24 05:00 Creatinine 0.71 mg/dL (0.70-1.30) 08/02/24 05:00 Glucose 95 mg/dL (74-106) 08/02/24 05:00 TSH 1.56 uIU/mL (0.358-3.74) 09/21/23 05:56 COAG PT 13.6 SECONDS (11.7-14.9) 06/17/24 22:05 Pre-Assessment Diagnosis/Proposed Procedure Planned Operative Procedure(s): Bronchoscopy Anesthesia History 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 When Was Last Pacemaker Check QUESTION #4 FULL TEXT: You/Your Family Experience fever (hyperthermia) with Anesthesia Last Oral Intake Last Oral intake: Last Oral Intake NPO since 00:00 08/02/24 11:03 Meds taken in AM with sips of Yes 08/02/24 11:03 water? Meds patient instructed to see 08/02/24 11:03 take am of surgery PONV PONV - internet marketing executive: PONV - internet marketing executive Female HX of Motion Sickness HX of N/V After Surgery Non-Smoker Duration of Surgery greater than 60 minutes Number of Risk Factors PONV Score Height & Weight Height & Weight: Anesthesia: Height & Weight Height 5 ft 9 in 08/02/24 11:03 Weight: 72.2 kg 08/02/24 11:03 Body Mass Index (BMI) 23.5 08/02/24 11:03 Respiratory Assessment Respiratory Assessment - internet marketing executive: Respiratory Tract Infection Hx - internet marketing executive Hx Respiratory Tract Infection No 10/31/23 13:10 STOP Sleep Apnea STOP Sleep Apnea - internet marketing executive: STOP Sleep Apnea - internet marketing executive Hx Hypertension No: resolved 07/30/24 10:42 Hx Sleep Apnea No 07/29/24 17:20 CPAP BIPAP Do you snore loudly (louder No 07/29/24 17:20 than talking or can be heard Do you often feel tired/ No 07/29/24 17:20 fatigued/ sleepy during daytime? Has anyone observed you stop No 07/29/24 17:20 breathing during sleep? STOP Results Negative 07/29/24 17:20 QUESTION #5 FULL TEXT : Do you snore loudly (louder than talking or can be heard through closed doors)? 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 Specify any problems Hx of Preganancy in last 3 N/A 07/29/24 17:20 Months Nurse Filling Out Transfusion FSTEINER 07/29/24 17:20 & Questions: Date: 07/29/24 07/29/24 17:20 Time: 17:22 07/29/24 17:20 Patient unable to answer at this time (ie. confused, unrespo /Reproduction History /Reproductive History - internet marketing executive: /Reproductive Hx- internet marketing executive Hx Now Gestational Age (in weeks): EDC: Hx Hx Para Hx Section SAB Active Medications Active Medications: Current Medications Generic Name Dose Route Start Last Admin Trade Name Freq PRN Reason Stop Dose Admin Acetaminophen 650 mg 07/29/24 17:09 08/01/24 22:43 Acetaminophen 325 Mg Tablet PO 650 mg Q4H PRN PRN Administration Fever, pain 1-10 Al Hydroxide/Mg Hydroxide 30 ml 07/29/24 17:09 Mag Hydrox/Al Hydrox/Simeth 30 Ml Udc PO Q6H PRN PRN Gastric Burning Albuterol Sulfate 2.5 mg 07/29/24 17:09 Albuterol 2.5 Mg/3 Ml Vial.Neb. INHALATION Q2H PRN PRN Dyspnea, wheezing Calamine/Phenol 1 applic 07/29/24 18:00 08/02/24 08:29 Menthol/Lanolin/Calamine/Znox 113 Gm Tube TOPICAL Not Given 4X/DAY JANELLE Protocol Diphenhydramine HCl 25 mg 07/29/24 17:09 Diphenhydramine 50 Mg/Ml Syringe IV Q6H PRN PRN ITCHING Enoxaparin Sodium 40 mg 07/31/24 10:00 07/31/24 08:15 Enoxaparin 40 Mg/0.4 Ml Syringe SC 40 mg DAILY JANELLE Administration Furosemide 40 mg 08/02/24 14:00 Furosemide 40 Mg/4 Ml Vial IV 08/02/24 14:01 X1 ONE Protocol Guaifenesin 20 ml 07/29/24 17:09 Guaifenesin 10 Ml Udc (200mg/10ml) PO Q4H PRN PRN COUGH Hydralazine HCl 10 mg 07/29/24 17:09 Hydralazine 20 Mg/Ml Vial IV Q4H PRN PRN SBP > 160 Protocol Pantoprazole Sodium 40 mg/ 110 mls @ 330 mls/hr 07/29/24 17:09 08/02/24 11:34 Sodium Chloride IV Infused Q12 JANELLE Infusion Vancomycin IV-PHARMACY TO DOSE 500 mls @ 250 mls/hr 07/29/24 17:09 1 each/ Sodium Chloride IV PRN PRN Rx to Dose Protocol Sodium Chloride 100 mls @ 15 mls/hr 07/29/24 17:19 08/02/24 10:45 IV Infused .Q6H40M PRN Infusion Saline Flush Sodium Chloride 100 mls @ 15 mls/hr 07/29/24 17:19 IV .Q6H40M PRN Additional IVPB Infusion Sodium Chloride 100 mls @ 15 mls/hr 07/30/24 12:09 IV .Q6H40M PRN Saline Flush Sodium Chloride 100 mls @ 15 mls/hr 07/30/24 12:09 IV .Q6H40M PRN Additional IVPB Infusion Sodium Chloride 1,000 mls @ 50 mls/hr 08/01/24 08:20 08/02/24 11:34 IV 08/03/24 02:59 0 mls/hr .Q20H JANELLE Infusion Protocol Vancomycin HCl 750 mg/ Sodium 265 mls @ 250 mls/hr 08/02/24 06:30 08/02/24 08:26 Chloride IV Infused Q8H JANELLE Infusion Piperacillin Sod/Tazobactam 50 mls @ 12.5 mls/hr 08/02/24 16:00 Sod 3.375 gm/ Sodium Chloride IV Q8H JANELLE Loperamide HCl 4 mg 07/29/24 17:09 Loperamide 2 Mg Capsule PO Q6H PRN loose stool Melatonin 10 mg 07/30/24 16:40 Melatonin 10 Mg Tablet PO QHS PRN INSOMNIA Morphine Sulfate 2 mg 07/30/24 16:41 08/02/24 11:34 Morphine 2 Mg/Ml Syringe IV 2 mg Q3H PRN PRN Administration Pain Score 6-10 Nystatin 500,000 unit 07/29/24 17:09 08/02/24 08:30 Nystatin 500,000 Unit/5 Ml Udc PO 500,000 unit 4X/DAY JANELLE Administration Ondansetron HCl 4 mg 07/29/24 17:09 Ondansetron 4 Mg/2 Ml Vial IV Q8H PRN PRN NAUSEA/VOMITING Oxycodone HCl 5 mg 07/29/24 17:09 08/02/24 07:06 Oxycodone 5 Mg Tablet PO 5 mg Q4H PRN PRN Administration Pain Score 4-10 Prochlorperazine Edisylate 5 mg 07/29/24 17:09 Prochlorperazine 10 Mg/2 Ml Vial IV Q4H PRN PRN Breakthrough nausea/vomiting Sodium Chloride 10 - 40 ml 07/29/24 17:19 08/02/24 11:33 0.9% Saline Lock 10 Ml Syringe IV 20 ml UD PRN Administration Port-a-Cath (VAD)/R Port Flush Sodium Chloride 10 - 40 ml 07/29/24 17:19 0.9 % Nacl (Sterile) Posiflush 10 Ml IV UD PRN Port access or dressing change Sodium Chloride 10 - 40 ml 07/29/24 17:19 0.9% Saline Lock 10 Ml Syringe IV UD PRN SALINE FLUSH Throat Lozenges 1 lozenge 08/01/24 15:51 08/01/24 17:58 Benzocaine/Menthol 1 Lozenge MUCOUS MEM 1 lozenge Q2H PRN PRN Administration Mouth pain Vancomycin Protocol 1 lab 08/03/24 04:00 Vancomycin Trough/Random Due 08/03/24 08:00 DAILY [facility] Medical History Metastatic cancer Cancer Former smoker HTN (hypertension) Home Medications ?Medication ?Instructions ?Recorded ?Last Taken ?Type amlodipine 5 mg-valsartan 320 mg 1 tab PO DAILY 09/20/23 Unknown History tablet acetaminophen 500 mg capsule 500 mg PO Q6H PRN pain 10/31/23 07/28/24 History ondansetron HCl 4 mg tablet 4 mg PO Q8H PRN nausea and vomiting 10/31/23 07/28/24 History magnesium oxide 400 mg PO BID 05/02/24 07/29/24 History potassium chloride 20 mEq 20 meq PO BID 05/02/24 Unknown History tablet,extended release(part/cryst) loperamide 2 mg capsule 4 mg PO Q6H PRN loose stool 07/29/24 07/29/24 History minocycline 100 mg capsule 100 mg PO BID 07/29/24 07/29/24 History morphine concentrate 100 mg/5 mL 5 mg PO BID PRN pain 07/29/24 07/28/24 History (20 mg/mL) oral solution nystatin 100,000 unit/mL oral 5 ml PO Q6H 07/29/24 07/29/24 History suspension oxycodone 5 mg tablet 5 mg PO 4X/DAY PRN 07/29/24 07/28/24 History Allergy/AdvReac Type Severity Reaction Status Date / Time codeine Allergy Itching Verified 07/29/24 11:39 Family History Mother Cancer Father Li's palsy Grandfather CVA (cerebral vascular accident) Surgical History History of appendectomy Status post reversal of ileostomy History of colostomy History of colectomy H/O: vasectomy Social History household members: family housing: house number of children: 2 current occupational status: employed Smoking Status: Former smoker alcohol intake: never substance use type: does not use Review of Systems (Anesthesia) ROS Narrative System reviewed and no additional complaints, except as documented.
[2024-08-02] MEDS: Lidocaine Jelly 2% 20 ML Syringe (URO-JET) 1 APPLIC (14:05)
[2024-08-02] MEDS: Lidocaine 2% (5ml sdv) 5 ML VIAL.MPF (14:06)
--- NOTE | 2024-08-02 14:09 | OP.BRONCH_ITS ---
Patient Name: Branden Humphreys Procedure Date: 08/02/2024 1:32 PM Date of : 1980 Age: 44 Procedure: Bronchoscopy Indications: Abnormal CT scan of chest Providers: James Phillips MD Medicines: See the Anesthesia note for documentation of the administered medications Complications: No immediate complications Procedure: Pre-Anesthesia Assessment: - A History and Physical has been performed. Patient meds and allergies have been reviewed. The risks and benefits of the procedure and the sedation options and risks were discussed with the patient. All questions were answered and informed consent was obtained. Patient identification and proposed procedure were verified prior to the procedure by the physician and the nurse in the procedure room. Mental Status Examination: alert and oriented. Airway Examination: normal oropharyngeal airway. Respiratory Examination: bibasilar crackles. CV Examination: normal. ASA Grade Assessment: II - A patient with mild systemic disease. After reviewing the risks and benefits, the patient was deemed in satisfactory condition to undergo the procedure. The anesthesia plan was to use monitored anesthesia care (MAC). Immediately prior to administration of medications, the patient was re-assessed for adequacy to receive sedatives. The heart rate, respiratory rate, oxygen saturations, blood pressure, adequacy of pulmonary ventilation, and response to care were monitored throughout the procedure. The physical status of the patient was re-assessed after the procedure. After I obtained informed consent, the scope was passed under direct vision. Throughout the procedure, the patient's blood pressure, pulse, and oxygen saturations were monitored continuously. The bronchoscope was introduced through the mouth and advanced to the tracheobronchial tree. The procedure was accomplished without difficulty. The patient tolerated the procedure well. Findings: The oropharynx appears normal. The larynx appears normal. The vocal cords appear normal. The subglottic space is normal. The trachea is of normal caliber. The hien is sharp. The tracheobronchial tree was examined to at least the first subsegmental level. Bronchial mucosa and anatomy are normal; there are no endobronchial lesions, and no secretions. The bronchoscope was advanced until wedged at the desired location for bronchoalveolar lavage. BAL was performed in the right lower lobe of the lung and sent for cell count, bacterial culture, viral smears & culture, and fungal & AFB analysis and cytology. 60 mL of fluid were instilled. 15 mL were returned. The return was cloudy. There were no mucoid plugs in the return fluid. The bronchoscope was advanced until wedged at the desired location for bronchoalveolar lavage. BAL was performed in the left lower lobe of the lung and sent for cell count, bacterial culture, viral smears & culture, and fungal & AFB analysis and cytology. 60 mL of fluid were instilled. 15 mL were returned. The return was cloudy. There were no mucoid plugs in the return fluid. Impression: - Abnormal CT scan of chest - The airway examination was normal. - Bronchoalveolar lavage was performed in bilateral lower lobes. Recommendation: - Await BAL results. Procedure Code(s): --- Professional --- 24625, Bronchoscopy, rigid or flexible, including fluoroscopic guidance, when performed; with bronchial alveolar lavage Diagnosis Code(s): --- Professional --- R93.89, Abnormal findings on diagnostic imaging of other specified body structures CPT copyright 2021 [employer]. All rights reserved. The codes documented in this report are preliminary and upon medical technical writer review may be revised to meet current compliance requirements. DO James Cardozo MD 08/02/2024 2:08:13 PM This report has been signed electronically. Number of Addenda: 0 Note Initiated On: 08/02/2024 1:32 PM
--- NOTE | 2024-08-02 14:49 | PCM.POST.ANE ---
Anesthesia: Postop Eval I Current Vital Signs Temperature: 98.3 F Pulse Rate: 119 Blood Pressure: 97/78 Respiratory Rate: 18 Pulse Ox: 90 Oxygen Delivery Method: Non-Rebreather Oxygen Flow Rate (L/min): 10 Assessment Airway patent: Yes Spontaneous unlabored respirations: Yes Mental status: Awake and Calm nausea: No Vomiting: No Anesthesia Complication: Yes Anesthesia Complication Comment:: hypoxia Fluid Hydration Crystalloid volume administer (ml): 30 Total IV fluid infused: 30 Progress Note Anesthesia document: Postop Eval 1 completed: Yes
--- NOTE | 2024-08-02 14:52 | NURSING ---
1430 vanc dose tubed down to AC. spoke with Rashad in PACU, states they received it.
[2024-08-02] MEDS: Furosemide 40 MG/4 ML Vial IV (15:25)
[2024-08-02 15:41] LABS: Cytology, Body Fluid / CSF SEE PATHOLOGY REPORT
[2024-08-02 15:45] LABS: Cytology, Body Fluid / CSF SEE PATHOLOGY REPORT
--- NOTE | 2024-08-02 15:56 | PCM.POSTANE2 ---
Anesthesia Postop Eval I Sum Postop Eval Completion status Anesthesia document: Postop Eval 1 completed: Yes Anesthesia Postop Eval I Summary Anesthesia Postop Eval I Summary: Anesthesia Postop Eval I: Assessment Summary Airway patent Yes 08/02/24 14:50 [email or web address] Spontaneous unlabored Yes 08/02/24 14:50 [email or web address] respirations Mental status Awake,Calm 08/02/24 14:50 [email or web address] nausea No 08/02/24 14:50 [email or web address] Vomiting No 08/02/24 14:50 [email or web address] Anesthesia Postop Eval I: Fluid Summary Crystalloid volume administer 30 08/02/24 14:50 [email or web address] (ml) Colloids volume administered ( ml) Blood Product volume administered (ml) Total IV fluid infused 30 08/02/24 14:50 [email or web address] Anesthesia Postop Eval I: Summary Notes Anesthesia Complication Yes 08/02/24 14:50 [email or web address] Anesthesia Complication hypoxia 08/02/24 14:50 [email or web address] Comment: Post-operative progress note Anesthesia: Postop Eval II Evaluation Mental status: Awake Pain Level: 0 nausea: No Vomiting: No
--- NOTE | 2024-08-02 16:08 | NURSING ---
1600 zosyn dose tubed down to AC/PACU
--- NOTE | 2024-08-02 16:49 | SUR.PHASEI ---
dr. chandler updated, airvo system ordered, this nurse contacted respiratory to set up. patient 92% on 10L simple mask at this time.
--- NOTE | 2024-08-02 16:52 | NURSING ---
talked with pacu regarding needing for higher level of oxygen, per spencer pt will need to be on airvo per Dr. Phillips. requesting PACU update Dr. Estrada. Dr. Estrada texted requesting she call pacu for update, verbalized concern with patient and need for higher level of care. supervisor electronics testing also informed.
--- NOTE | 2024-08-02 16:55 | PN.HOSP_ITS ---
Hospitalist Note Patient underwent bronchoscopy, post [facility] patient was hypoxic, has slowly been improving but is 90% on a mask at 10 L/min. Patient received IV Lasix and pulmonology contacted who recommended Airvo. Spoke with patient's nurse, patient is awake and alert and improving albeit slowly. Given he is awake and alert and improving it patient to be transferred to PCU instead of back to [facility].
--- NOTE | 2024-08-02 16:59 | NURSING ---
talked with Dr. Estrada and mixing house operator notified of transferring to pcu, requesting she notify PACU of bed assignment.
--- NOTE | 2024-08-02 17:00 | SUR.PHASEI ---
holding in pacu, awaiting clean room on PCU
--- NOTE | 2024-08-02 17:00 | SUR.PHASEI ---
patient oxygen requirement increased since bronch, maintains 92% 10L simple mask.
--- NOTE | 2024-08-02 17:41 | SUR.PHASEI ---
dr. horn at bedside
--- NOTE | 2024-08-02 19:28 | SUR.PHASEI ---
respiratory notified that patient is now in 104, awaiting airvo. called and updated
[2024-08-02 21:05] LABS: Appearance/Body Fluid CLEAR; Color/Body Fluid COLORLESS; Source- Body Fluid BRONCHIAL LAVAGE
[2024-08-02 21:15] LABS: Red Cell Count/Body Fluid 16 /mm3; White Blood Count/Body Fluid 58 /mm3
[2024-08-02 21:16] LABS: Body Fluid QC Type(s) BF1Q, BF2Q
[2024-08-02 21:17] LABS: Appearance/Body Fluid SL CLDY; Color/Body Fluid COLORLESS; Source- Body Fluid BRONCHIAL LAVAGE
[2024-08-02 21:27] LABS: Red Cell Count/Body Fluid 39 /mm3
[2024-08-02 21:28] LABS: Body Fluid QC Type(s) BF1Q, BF2Q; White Blood Count/Body Fluid 106 /mm3
[2024-08-02 22:15] LABS: Lymphocytes 27 %; Macrophages 29 %; Monocytes 26 %; Neutrophil (Segs) 14 %; Other Cell Type/BF 4 %
[2024-08-02 22:22] LABS: Lymphocytes 9 %; Macrophages 23 %; Neutrophil (Segs) 60 %; Other Cell Type/BF 5 %; Plasma Cell/BodyFluid 3 %
[2024-08-02] MEDS: Acetaminophen 325 MG Tablet 650 MG PO (23:41)
[2024-08-03] VITALS (21 sets, daily range): BP systolic 109–146; BP diastolic 66–102; PULSE 70–112; RESP 12–32; TEMP 36.1–36.4; O2SAT 86–98; BMI 22.8
[2024-08-03] MEDS: Vancomycin HCl 750 MG in 0.9% Normal Saline (250mL Bag) 250 ML 250 MG IV ×3 (01:31→17:38)
[2024-08-03] MEDS: 0.9% Saline Lock 10 ML Syringe IV ×14 (01:32→23:55)
[2024-08-03] MEDS: Piperacil/Tazobactam 3.375 GM in 0.9% Normal Saline (50mL MB+) 50 ML IV ×3 (04:11→20:52)
[2024-08-03] MEDS: Morphine 2 MG/ML Syringe IV ×4 (04:26→21:38)
[2024-08-03 06:07] LABS: Absolute Lymphocyte Count 0.52 X10^3/uL (0.83-4.51); Absolute Neutrophil Count 6.3 X10^3/uL (2.0-7.7); Basophil# 0.02 X10^3/uL; Basophil% 0.3 % (0-1); Hematocrit 30.6 % (40-54); Hemoglobin 9.7 g/dL (13.0-16.5); Lymphocyte # 0.52 X10^3/ul (0.83-4.51); Lymphocyte % 6.9 % (19-41); Mean Corp Hgb Conc 31.7 g/dL (32-36); Mean Corpuscular Hgb 25.5 pg (27.0-32.0); Mean Corpuscular Volume 80.5 fL (80-94); Mean Platelet Vol. 11.1 fl (6.2-12.0); Monocyte# 0.57 X10^3/uL; Monocyte% 7.6 % (0-10); NRBC Flagged by Analyzer 0 % (0-5); Neutrophil # 6.29 X10^3/uL (2.7-7.7); POSITIVE DIFFERENTIAL YES; Platelet Count 268 K/mm3 (150-450); RBC Distribution Width CV 16.1 % (11.6-14.6); RBC Distribution Width SD 46.2 fl (35.1-43.9); White Blood Count 7.5 K/mm3 (4.4-11.0)
[2024-08-03 06:26] LABS: Anion Gap 8 (5-15); BUN 13 mg/dL (7-18); BUN/Creat Ratio 17.7 RATIO (10-20); Calcium,Total 7.9 mg/dL (8.5-10.1); Chloride 104 mmol/L (98-107); Creatinine, Serum 0.74 mg/dL (0.70-1.30); EST Glomerular Filtration Rate 124 mL/min (>60); Est Glom Filt Rate - Afr Amer 150 mL/min (>60); Estimated Creatinine Clearance 128.17 ml/min; Glucose 136 mg/dL (74-106); Sodium Level 137 mmol/L (136-145)
[2024-08-03 06:30] LABS: Vancomycin, Trough Level 23.6 ug/mL (5.0-15.0)
--- NOTE | 2024-08-03 06:42 | PCM.RX.CS ---
Consult Antibiotic Management Pharmacy has been consulted to manage selected antibiotic: Vancomycin Type of Intervention Type of Consult: Follow-up Suspected Infection Suspected Infection: Pneumonia Prior Doses of Antibiotics Prior Doses of Antibiotics Received/Current Regimen: Vancomycin 750 mg IV Q8H last given 08/03 @ 0131 (dose due 08/02 @ 2230) Labs Labs: Sodium 137 mmol/L (136-145) 08/03/24 05:55 Potassium 4.0 mmol/L (3.5-5.1) 08/03/24 05:55 Chloride 104 mmol/L (98-107) 08/03/24 05:55 Carbon Dioxide 25.0 mmol/L (21.0-32.0) 08/03/24 05:55 Anion Gap 8 (5-15) 08/03/24 05:55 BUN 13 mg/dL (7-18) 08/03/24 05:55 Creatinine 0.74 mg/dL (0.70-1.30) 08/03/24 05:55 Est GFR (MDRD) Af Amer 150 mL/min (>60) 08/03/24 05:55 Est GFR (MDRD) Non-Af 124 mL/min (>60) 08/03/24 05:55 BUN/Creatinine Ratio 17.7 RATIO (10-20) 08/03/24 05:55 Glucose 136 mg/dL (74-106) H 08/03/24 05:55 Vancomycin Trough 23.6 ug/mL (5.0-15.0) H 08/03/24 05:55 Random Vancomycin 17.1 ug/mL (0.0-15.0) H 08/02/24 05:00 Microbiology Microbiology: Microbiology 07/29/24 13:43 Blood Culture (Wb) - Port Blood Culture - Preliminary No growth in 48 hours. 07/30/24 03:10 Urine, Random Streptococcus pneumoniae Antigen (M - Final 07/30/24 03:10 Urine, Random Legionella Antigen - Final 07/30/24 00:10 Nasal Secretion MRSA (PCR) - Final 07/29/24 17:42 Mucosa - Nasopharyngeal Respiratory Panel (PCR) - Final 07/29/24 13:18 Mucosa - Nose SARS-CoV-2, Influenza & RSV (PCR) - Final Dosing Weight Weight used for dosin.4 kg Estimated Creatinine Clearance Estimated Creatinine Clearance: ~ 128 Goal Trough Goal Trough: 15-20 mcg/mL Pharmacy Plan for Drug Dosing Pharmacy Plan for Drug Dosing: Vancomycin trough = 23.6, drawn 4.5 hours after last dose. Per dosing calculator actual trough = 19.2, will continue current dosing but adjust times based on last administered dose and get a trough after 2 more doses to check actual trough. Pharmacy Service will continue to monitor and adjust dosing as required. Follow-Up Labs Follow-Up Labs: Trough: Vancomycin Date/Time Labs Ordered Labs to be done on [date and time ordered]: 08/04/24 @ 0100
[2024-08-03] MEDS: oxyCODONE 5 MG Tablet PO ×4 (08:21→23:54)
[2024-08-03] MEDS: Acetaminophen 325 MG Tablet 650 MG PO ×4 (08:21→23:54)
--- NOTE | 2024-08-03 08:45 | RAD_ITS ---
STUDY: X-RAY CHEST REASON FOR EXAM: Male, 44 years old. Maxed out on Airvo TECHNIQUE: Single AP portable view of the chest. COMPARISON: Comparison is made with prior study dated June 17, 2024. FINDINGS: A right-sided portacatheter is seen with the tip at the junction of the superior vena cava and right atrium. EKG electrodes are seen. Diffuse bilateral airspace disease worse in the left hemithorax and were sent the left lung base. Small bilateral pleural effusions. Follow-up recommended. Cannot rule out pulmonary metastasis. Normal size heart. Normal mediastinum and johan. Normal visualized pulmonary arteries. Normal visualized aortic arch and descending thoracic aorta. Normal visualized thoracic spine. Normal visualized ribs, clavicles, and shoulders. There is no demonstrated abnormality of the visualized soft tissue structures of the upper abdomen. RAD/Chest 1 View (Portable) IMPRESSION: Bilateral airspace disease worse in the left hemithorax with small bilateral pleural effusions. Cannot rule out pulmonary metastasis. Follow-up recommended. Electronically Signed: Dontrell Issa MD at 8:58 EST ,
--- NOTE | 2024-08-03 10:32 | PN.CC_ITS ---
Assessment & Plan Assessment/Plan (1) Bilateral interstitial pneumonia: PLAN: Plan RECOMMENDATIONS: 1. Continue empiric broad-spectrum antimicrobials for now. 2. Start scheduled diuretics as ordered. 3. Initiate IV corticosteroids. 4. If further decompensation noted, start BiPAP therapy 12/6 cm of water. 5. Continue appropriate DVT prophylaxis. IMPRESSIONS: 1. Acute hypoxemic respiratory failure with multifocal airspace opacities on chest imaging concerning for pneumonia The patient has a history of metastatic adenocarcinoma of the colon and is currently undergoing chemotherapy. The patient began to develop generalized malaise and shortness of breath in between and . Unfortunately, the patient's symptoms continued to persist. Therefore, the patient was referred to the emergency department to be evaluated for pulmonary embolism, which was ultimately ruled out. The patient has evidence of bibasilar reticular nodular opacities concerning for pneumonia. He has been maintained on broad-spectrum antimicrobial therapy, despite negative infectious workup. Therefore, bronchoscopy with bilateral lower lobe BAL was completed on August 02. His respiratory status has remained quite tenuous since that time. Cultures are currently pending. The patient is overall net positive from a volume perspective for the hospitalization. Therefore, we will plan to continue scheduled IV Lasix today. In addition, given his current clinical status, will initiate IV corticosteroids. BiPAP therapy can be initiated, if needed. 2. History of metastatic adenocarcinoma of the colon/protein calorie malnutrition/hypertension/anemia Complicates care, management, recovery and prognosis. Continue supportive care as noted above. This note was generated with [employer] dictation software. It may contain incorrect words, spelling, and punctuation that were not noted in checking the note before signing. Subjective Subjective The patient was seen and examined at the bedside this morning. Events from the last 24 hours have been reviewed. The patient is currently afebrile, hemodynamically stable and maintaining marginal oxygen saturations on heated high flow with an FiO2 of 90%. The patient underwent bronchoscopy yesterday with bilateral lower lobe lavages. His oxygen requirement increased post bronchoscopy. He did receive a one-time dose of IV Lasix yesterday and has been placed on scheduled diuretics today, along with corticosteroids. He is currently documented to be overall net +8.2 L for the hospitalization. White blood cell count is normal. Hemoglobin and platelet count are stable. Chemistry profile was unremarkable. Objective Data Objective Data The patient's most recent lab work, culture data and imaging studies have all been personally reviewed. BAL cultures are pending. Vital Signs: Vital Signs Temp Pulse Resp BP Pulse Ox O2 Del Method O2 Flow Rate 97.4 F L 96 24 H 133/90 H 89 Airvo 50 08/03/24 08:27 08/03/24 08:27 08/03/24 08:27 08/03/24 08:27 08/03/24 08:27 08/03/24 08:28 08/03/24 08:27 FiO2 90 08/03/24 08:28 Oxygen Flow Rate (L/min) 50 Oxygen Delivery Method Airvo Weight: 155 lb 3.287 oz Body Mass Index (BMI) 22.8 Intake & Output: Intake and Output for Last 24 Hours 08/01/24 08/02/24 08/03/24 23:59 23:59 23:59 Intake Total 2757.5 / 2757.5 2575.00 / 2575.00 425 / 425 Output Total 1075 / 1075 3605 / 4205 600 / 600 Balance 1682.5 / 1682.5 -1030.00 / -1630.00 -175 / -175 Medical Nutrition Assessment Dietitian: Malnutrition Criteria Met Start: 07/30/24 12:45 Freq: Status: Active Protocol: Document 08/02/24 13:15 SLA (Rec: 08/02/24 13:15 SLA 10..25.7) Nutrition Malnutrition Evidence of Malnutrition Exists Yes Malnutrition (severe): Chronic Evidenced By Suboptimal Energy Intake ( Severe),Weight Loss (Severe), Physical Changes (Severe) Clinical Problem Chronic Disease or Condition Related Malnutrition Etiology related to colon cancer and possible mets Signs/Symptoms as evidenced by ~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 Status Active Problem Recommendation Dietitian Recommendations/Changes Rec liberalize diet to Regular consistency per pt request Will discontinue magic cup w/ lunch and dinner for increased nutrition if consumed - does not like ensure/boost/premier protein/CIB anymore Rec appetite stimulant to help encourage increased po intake Rec consider more aggressive nutrition support if po intake fails to improve and wt loss continues to help prevent further decline in pt nutritional status - if in accordance w/ pt/family wishes . Lab / Micro Data Attestation: I reviewed the patient's lab results. 08/03/24 05:55 08/03/24 05:55 Labs: Laboratory Results - last 24 hr 08/02/24 13:59: Fluid Source BRONCHIAL LAVAGE 08/02/24 13:59: Fluid Source BRONCHIAL LAVAGE, Fluid Color COLORLESS 08/02/24 13:59: Fluid Color COLORLESS, Fluid Appearance CLEAR 08/02/24 13:59: Fluid Appearance SL CLDY, Fluid WBC 58 08/02/24 13:59: Fluid WBC 106, Fluid RBC 16 08/02/24 13:59: Fluid RBC 39, Fluid Tot Cell Count TNP 08/02/24 13:59: Fluid Tot Cell Count TNP, Fluid Neutrophils 14 08/02/24 13:59: Fluid Neutrophils 60, Fluid Lymphocytes 27 08/02/24 13:59: Fluid Lymphocytes 9, Fluid Monocytes 26, Fluid Plasma Cells 3, Fluid Macrophages 29 08/02/24 13:59: Fluid Macrophages 23, Fluid Other Cells 4 08/02/24 13:59: Fluid Other Cells 5, Fl Pathologist Comment May follow 08/02/24 13:59: Fl Pathologist Comment May follow, Fluid Comment 2 Not Reportable 08/02/24 13:59: Fluid Comment 2 Not Reportable 08/03/24 05:55: WBC 7.5, RBC 3.80 L, Hgb 9.7 L, Hct 30.6 L, MCV 80.5, MCH 25.5 L , MCHC 31.7 L, RDW Std Deviation 46.2 H, RDW Coeff of Elysia 16.1 H, Plt Count 268, MPV 11.1, Immature Gran % (Auto) 1.200 H, Neut % (Auto) 84.0 H, Lymph % (Auto) 6.9 L, [place] % (Auto) 7.6, Eos % (Auto) 0.0, Baso % (Auto) 0.3, Absolute Neuts (auto) 6.3, Absolute Lymphs (auto) 0.52 L, Nucleated RBC % 0, Sodium 137, Potassium 4.0, Chloride 104, Carbon Dioxide 25.0, Anion Gap 8, BUN 13, Creatinine 0.74, Estim Creat Clear Calc 128.17, Est GFR (MDRD) Af Amer 150, Est GFR (MDRD) Non-Af 124, BUN/Creatinine Ratio 17.7, Glucose 136 H, Calcium 7.9 L, Vancomycin Trough 23.6 H Micro: Microbiology 08/02/24 13:59 Bronchial Lavage - Left Lower Lobe Respiratory Culture - Preliminary Appears to be normal respiratory elizabeth. Further studies to follow. 08/02/24 13:59 Bronchial Lavage - Right Lower Lobe Respiratory Culture - Preliminary Appears to be normal respiratory elizabeth. Further studies to follow. 07/29/24 13:43 Blood Culture (Wb) - Port Blood Culture - Preliminary No growth in 48 hours. 07/30/24 03:10 Urine, Random Streptococcus pneumoniae Antigen (M - Final 07/30/24 03:10 Urine, Random Legionella Antigen - Final 07/30/24 00:10 Nasal Secretion MRSA (PCR) - Final 07/29/24 17:42 Mucosa - Nasopharyngeal Respiratory Panel (PCR) - Final 07/29/24 13:18 Mucosa - Nose SARS-CoV-2, Influenza & RSV (PCR) - Final Radiography Diagnostic Testing: Radiology Impression Chest X-Ray 08/03/24 08:45 IMPRESSION: Bilateral airspace disease worse in the left hemithorax with small bilateral pleural effusions. Cannot rule out pulmonary metastasis. Follow-up recommended. Electronically Signed: Dontrell Issa MD at 8:58 EST , Physical Exam Const alert and no apparent distress General Appearance: cooperative and ill appearing HEENT normocephalic and head/scalp atraumatic Eyes PERRL, EOMs intact bilaterally and conjunctivae normal Neck supple General: trachea midline Chest inspection of chest normal Resp normal respiratory effort Effort and Inspection: tachypneic Auscultation: rales and diminished lung sounds; Negative for rhonchi or wheezes Cardio regular rate and regular rhythm GI normal to inspection, nondistended, normoactive bowel sounds Extremity no clubbing, cyanosis or edema Skin no rashes or lesions noted Neuro CN's II-XII intact bilaterally, moves all extremities and no focal motor deficits Psych Mood & Affect: anxious and flat affect Charges/Coding Visit Charges Inpatient E&M: 71086 Subs Hosp L3
[2024-08-03] MEDS: Enoxaparin 40 MG/0.4 ML Syringe SC (11:03)
[2024-08-03] MEDS: NYSTATIN 500,000 UNIT/5 ML UDC 500000 UNIT PO ×4 (11:03→21:39)
[2024-08-03] MEDS: Furosemide 40 MG/4 ML Vial IV ×2 (11:04→17:36)
--- NOTE | 2024-08-03 11:23 | WOUNDNOTE ---
In to assess if patient has any ostomy needs. pt and state they had just changed the appliance a couple of days ago. they have been independent with care. no further needs voiced at this time.
[2024-08-03] MEDS: Pantoprazole Sodium 40 MG in 0.9% Normal Saline (100mL MB+) 100 ML 330 MG IV (11:43)
[2024-08-03 11:50] LABS: Pathologist Comment/Body Fluid Reviewed
--- NOTE | 2024-08-03 16:29 | PCM.PN.HOSP ---
Subjective Subjective Had a bronchoscopy yesterday and has had increased shortness of breath today. He refused BiPAP today because it was sprung on him secondary to his hypoxia. Currently maintaining on Airvo Objective Data Objective Data Vital Signs: Vital Signs Temp Pulse Resp BP Pulse Ox O2 Del Method O2 Flow Rate 97.6 F L 82 20 H 129/85 H 92 Airvo 50 08/03/24 12:00 08/03/24 14:00 08/03/24 14:00 08/03/24 14:00 08/03/24 14:00 08/03/24 14:00 08/03/24 14:00 FiO2 92 08/03/24 14:00 Oxygen Flow Rate (L/min) 50 Oxygen Delivery Method Airvo Weight: 155 lb 3.287 oz Body Mass Index (BMI) 22.8 Intake & Output: Intake and Output for Last 24 Hours 08/02/24 08/03/24 08/04/24 03:59 03:59 03:59 Intake Total 2857.5 / 2857.5 2235.00 / 2235.00 690 / 690 Output Total 1475 / 1475 3605 / 3605 1300 / 1300 Balance 1382.5 / 1382.5 -1370.00 / -1370.00 -610 / -610 Medical Nutrition Assessment Dietitian: Malnutrition Criteria Met Start: 07/30/24 12:45 Freq: Status: Active Protocol: Document 08/02/24 13:15 SLA (Rec: 08/02/24 13:15 SLA [id number]) Nutrition Malnutrition Evidence of Malnutrition Exists Yes Malnutrition (severe): Chronic Evidenced By Suboptimal Energy Intake ( Severe),Weight Loss (Severe), Physical Changes (Severe) Clinical Problem Chronic Disease or Condition Related Malnutrition Etiology related to colon cancer and possible mets Signs/Symptoms as 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 Status Active Problem Recommendation Dietitian Recommendations/Changes Rec liberalize diet to Regular consistency per pt request Will discontinue magic cup w/ lunch and dinner for increased nutrition if consumed - does not like ensure/boost/premier protein/CIB anymore Rec appetite stimulant to help encourage increased po intake Rec consider more aggressive nutrition support if po intake fails to improve and wt loss continues to help prevent further decline in pt nutritional status - if in accordance w/ pt/family wishes . Lab / Micro Data 08/03/24 05:55 08/03/24 05:55 Labs: Laboratory Results - last 24 hr 08/02/24 13:59: Fluid Source BRONCHIAL LAVAGE 08/02/24 13:59: Fluid Source BRONCHIAL LAVAGE, Fluid Color COLORLESS 08/02/24 13:59: Fluid Color COLORLESS, Fluid Appearance CLEAR 08/02/24 13:59: Fluid Appearance SL CLDY, Fluid WBC 58 08/02/24 13:59: Fluid WBC 106, Fluid RBC 16 08/02/24 13:59: Fluid RBC 39, Fluid Tot Cell Count TNP 08/02/24 13:59: Fluid Tot Cell Count TNP, Fluid Neutrophils 14 08/02/24 13:59: Fluid Neutrophils 60, Fluid Lymphocytes 27 08/02/24 13:59: Fluid Lymphocytes 9, Fluid Monocytes 26, Fluid Plasma Cells 3, Fluid Macrophages 29 08/02/24 13:59: Fluid Macrophages 23, Fluid Other Cells 4 08/02/24 13:59: Fluid Other Cells 5, Fl Pathologist Comment Reviewed 08/02/24 13:59: Fl Pathologist Comment Reviewed, Fluid Comment 2 Not Reportable 08/02/24 13:59: Fluid Comment 2 Not Reportable 08/03/24 05:55: WBC 7.5, RBC 3.80 L, Hgb 9.7 L, Hct 30.6 L, MCV 80.5, MCH 25.5 L, MCHC 31.7 L, RDW Std Deviation 46.2 H, RDW Coeff of Elysia 16.1 H, Plt Count 268, MPV 11.1, Immature Gran % (Auto) 1.200 H, Neut % (Auto) 84.0 H, Lymph % (Auto) 6.9 L, [place] % (Auto) 7.6, Eos % (Auto) 0.0, Baso % (Auto) 0.3, Absolute Neuts (auto) 6.3, Absolute Lymphs (auto) 0.52 L, Nucleated RBC % 0, Sodium 137, Potassium 4.0, Chloride 104, Carbon Dioxide 25.0, Anion Gap 8, BUN 13, Creatinine 0.74, Estim Creat Clear Calc 128.17, Est GFR (MDRD) Af Amer 150, Est GFR (MDRD) Non-Af 124, BUN/Creatinine Ratio 17.7, Glucose 136 H, Calcium 7.9 L, Vancomycin Trough 23.6 H Micro: Microbiology 08/02/24 13:59 Bronchial Lavage - Left Lower Lobe Gram Stain - Final 08/02/24 13:59 Bronchial Lavage - Left Lower Lobe Respiratory Culture - Preliminary Appears to be normal respiratory elizabeth. Further studies to follow. 08/02/24 13:59 Bronchial Lavage - Right Lower Lobe Gram Stain - Final 08/02/24 13:59 Bronchial Lavage - Right Lower Lobe Respiratory Culture - Preliminary Appears to be normal respiratory elizabeth. Further studies to follow. 07/29/24 13:43 Blood Culture (Wb) - Port Blood Culture - Final No growth in 5 days. 07/29/24 13:18 Blood Culture (Wb) - Port Blood Culture - Final No growth in 5 days. 07/30/24 03:10 Urine, Random Streptococcus pneumoniae Antigen (M - Final 07/30/24 03:10 Urine, Random Legionella Antigen - Final 07/30/24 00:10 Nasal Secretion MRSA (PCR) - Final 07/29/24 17:42 Mucosa - Nasopharyngeal Respiratory Panel (PCR) - Final 07/29/24 13:18 Mucosa - Nose SARS-CoV-2, Influenza & RSV (PCR) - Final Radiography Diagnostic Testing: Radiology Impression Chest X-Ray 08/03/24 08:45 IMPRESSION: Bilateral airspace disease worse in the left hemithorax with small bilateral pleural effusions. Cannot rule out pulmonary metastasis. Follow-up recommended. Electronically Signed: Dontrell Issa MD at 8:58 EST , Physical Exam Narrative General: Alert, Oriented x3, Cooperative, No apparent distress HEENT: Atraumatic, PERRLA, EOMI, Normocephalic Oral: Moist Mucosa Neck: Supple, No JVD Lungs: Diminished, Normal air movement, No rhonchi, scattered wheeze, No rales Cardiovascular: Regular rate, Regular Rhythm, Normal S1, Normal S2, No murmurs Abdomen: Soft, Non Tender, Non-Distended, No Hepato-splenomegaly Extremities: No edema, Capillary Refill Less than 3 Seconds Skin: No rashes, No breakdown Musculoskeletal: No Tenderness to Palpation of Joints or Extremities Neurological: No focal neurological deficits, Motor Exam 5/5 strength throughout, Sensory exam intact to light touch and pain Psych/Mental Status: Normal Affect, Appropriate Assessment & Plan Assessment/Plan (1) Bilateral interstitial pneumonia: PLAN: Plan # Multifocal airspace opacities with hypoxia -Concerning for pneumonia versus metastatic adenocarcinoma -Patient on broad-spectrum antibiotics -Evaluated by pulmonology and 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 Continuing broad-spectrum antibiotics, may need bronc next week if not improving -08/01: Remains on O2 despite antibiotics, may need bronchoscopy per previous discussion with pulmonology. Patient will be made n.p.o. at midnight in the event this would be able to happen tomorrow if pulmonology deems this necessary. Also hold Lovenox and put order for SCDs. Will resume Lovenox if no bronchoscopy planned -08/02: Patient for bronchoscopy today, continuing antibiotics at this time and supportive care. Discussed with pulmonology 08/03/2024: Increased work of breathing after his bronchoscopy, attempted BiPAP which she did not tolerate so we will continue with Lasix since he is 8 L positive and will continue with the Airvo hopefully will be able to have significant improvement in the next 24 to 48 hours # History of metastatic adenocarcinoma of the colon -Following with Dr. Yates on outpatient basis -Status post colon resection -Actively undergoing chemo -Will need to follow-up on discharge -07/31: May need bronc next week, patient's home pain medications were continued -08/01: Titrate pain medication as needed, supportive care -08/02: Continue supportive care # Poor p.o. intake -Patient appears somewhat clinically dry, IV fluids -07/31: Continues to have poor p.o. intake, will continue IV fluids -08/01: Minimize time patient is n.p.o. as possible, Magic cup of lunch and dinner -08/02: Resume diet when possible after bronchoscopy DVT: SCDs Charges/Coding Visit Charges Inpatient E&M: 02471 Subs Hosp L2
[2024-08-03] MEDS: Ondansetron 4 MG/2 ML Vial IV (21:52)
[2024-08-04] VITALS (19 sets, daily range): BP systolic 126–151; BP diastolic 82–105; PULSE 62–104; RESP 12–31; TEMP 36.1–36.6; O2SAT 90–100; BMI 21.9
[2024-08-04] MEDS: 0.9% Saline Lock 10 ML Syringe IV ×12 (00:41→22:34)
[2024-08-04] MEDS: Morphine 2 MG/ML Syringe IV ×5 (00:41→22:17)
[2024-08-04] MEDS: Pantoprazole Sodium 40 MG in 0.9% Normal Saline (100mL MB+) 100 ML 330 MG IV ×3 (01:34→20:42)
[2024-08-04 01:47] LABS: Vancomycin, Trough Level 23.9 ug/mL (5.0-15.0)
--- NOTE | 2024-08-04 01:52 | PHA.PHARE_ITS ---
Consult Antibiotic Management Pharmacy has been consulted to manage selected antibiotic: Vancomycin Type of Intervention Type of Consult: Follow-up Labs Labs: Sodium 137 mmol/L (136-145) 08/03/24 05:55 Potassium 4.0 mmol/L (3.5-5.1) 08/03/24 05:55 Chloride 104 mmol/L (98-107) 08/03/24 05:55 Carbon Dioxide 25.0 mmol/L (21.0-32.0) 08/03/24 05:55 Anion Gap 8 (5-15) 08/03/24 05:55 BUN 13 mg/dL (7-18) 08/03/24 05:55 Creatinine 0.74 mg/dL (0.70-1.30) 08/03/24 05:55 Est GFR (MDRD) Af Amer 150 mL/min (>60) 08/03/24 05:55 Est GFR (MDRD) Non-Af 124 mL/min (>60) 08/03/24 05:55 BUN/Creatinine Ratio 17.7 RATIO (10-20) 08/03/24 05:55 Glucose 136 mg/dL (74-106) H 08/03/24 05:55 Vancomycin Trough 23.9 ug/mL (5.0-15.0) H 08/04/24 01:12 Random Vancomycin 17.1 ug/mL (0.0-15.0) H 08/02/24 05:00 Microbiology Microbiology: Microbiology 08/02/24 13:59 Bronchial Lavage - Left Lower Lobe Gram Stain - Final 08/02/24 13:59 Bronchial Lavage - Left Lower Lobe Respiratory Culture - Pr eliminary Appears to be normal respiratory elizabeth. Further studies to follow. 08/02/24 13:59 Bronchial Lavage - Right Lower Lobe Gram Stain - Final 08/02/24 13:59 Bronchial Lavage - Right Lower Lobe Respiratory Culture - Preliminary Appears to be normal respiratory elizabeth. Further studies to follow. 07/29/24 13:43 Blood Culture (Wb) - Port Blood Culture - Final No growth in 5 days. 07/29/24 13:18 Blood Culture (Wb) - Port Blood Culture - Final No growth in 5 days. 07/30/24 03:10 Urine, Random Streptococcus pneumoniae Antigen (M - Final 07/30/24 03:10 Urine, Random Legionella Antigen - Final 07/30/24 00:10 Nasal Secretion MRSA (PCR) - Final 07/29/24 17:42 Mucosa - Nasopharyngeal Respiratory Panel (PCR) - Final 07/29/24 13:18 Mucosa - Nose SARS-CoV-2, Influenza & RSV (PCR) - Final Goal Trough Goal Trough: 15-20 mcg/mL Pharmacy Plan for Drug Dosing Pharmacy Plan for Drug Dosing: Pharmacy Service will continue to monitor and adjust dosing as required. TROUGH 23.9 @ 7.5 HOURS. HOLD DOSE AND DRAW RANDOM LEVEL IN 8 HOURS Follow-Up Labs Follow-Up Labs: Trough: Vancomycin Date/Time Labs Ordered Labs to be done on [date and time ordered]: 08/04 @ 0900
[2024-08-04] MEDS: Piperacil/Tazobactam 3.375 GM in 0.9% Normal Saline (50mL MB+) 50 ML IV ×3 (03:01→20:49)
[2024-08-04] MEDS: Acetaminophen 325 MG Tablet 650 MG PO ×3 (04:10→15:38)
[2024-08-04] MEDS: oxyCODONE 5 MG Tablet PO ×4 (04:11→20:30)
[2024-08-04] MEDS: NYSTATIN 500,000 UNIT/5 ML UDC 500000 UNIT PO (09:36)
[2024-08-04 09:38] LABS: Absolute Lymphocyte Count 0.44 X10^3/uL (0.83-4.51); Absolute Neutrophil Count 11.9 X10^3/uL (2.0-7.7); Basophil# 0.02 X10^3/uL; Basophil% 0.2 % (0-1); Hematocrit 31.4 % (40-54); Hemoglobin 9.9 g/dL (13.0-16.5); Lymphocyte # 0.44 X10^3/ul (0.83-4.51); Lymphocyte % 3.3 % (19-41); Mean Corp Hgb Conc 31.5 g/dL (32-36); Mean Corpuscular Hgb 25.3 pg (27.0-32.0); Mean Corpuscular Volume 80.3 fL (80-94); Monocyte# 0.69 X10^3/uL; Monocyte% 5.2 % (0-10); NRBC Flagged by Analyzer 0 % (0-5); Neutrophil # 11.93 X10^3/uL (2.7-7.7); Neutrophil % 90.4 % (47-70); POSITIVE DIFFERENTIAL YES; Platelet Count 345 K/mm3 (150-450); RBC Distribution Width CV 15.8 % (11.6-14.6); RBC Distribution Width SD 45.4 fl (35.1-43.9); Red Blood Count 3.91 M/mm3 (4.6-6.2); White Blood Count 13.2 K/mm3 (4.4-11.0)
[2024-08-04 09:50] LABS: Anion Gap 7 (5-15); BUN 17 mg/dL (7-18); BUN/Creat Ratio 22.8 RATIO (10-20); Calcium,Total 8.2 mg/dL (8.5-10.1); Chloride 101 mmol/L (98-107); Creatinine, Serum 0.74 mg/dL (0.70-1.30); EST Glomerular Filtration Rate 122 mL/min (>60); Est Glom Filt Rate - Afr Amer 147 mL/min (>60); Estimated Creatinine Clearance 122.71 ml/min; Glucose 128 mg/dL (74-106); Potassium 3.6 mmol/L (3.5-5.1); Sodium Level 139 mmol/L (136-145)
[2024-08-04 09:58] LABS: Vancomycin, Random Level 18.4 ug/mL (0.0-15.0)
[2024-08-04] MEDS: Furosemide 40 MG/4 ML Vial IV ×2 (10:12→18:28)
[2024-08-04] MEDS: Enoxaparin 40 MG/0.4 ML Syringe SC (10:13)
--- NOTE | 2024-08-04 10:33 | PCM.RX.CS ---
Consult Antibiotic Management Pharmacy has been consulted to manage selected antibiotic: Vancomycin Type of Intervention Type of Consult: Follow-up Labs Labs: Sodium 139 mmol/L (136-145) 08/04/24 08:51 Potassium 3.6 mmol/L (3.5-5.1) 08/04/24 08:51 Chloride 101 mmol/L (98-107) 08/04/24 08:51 Carbon Dioxide 31.0 mmol/L (21.0-32.0) 08/04/24 08:51 Anion Gap 7 (5-15) 08/04/24 08:51 BUN 17 mg/dL (7-18) 08/04/24 08:51 Creatinine 0.74 mg/dL (0.70-1.30) 08/04/24 08:51 Est GFR (MDRD) Af Amer 147 mL/min (>60) 08/04/24 08:51 Est GFR (MDRD) Non-Af 122 mL/min (>60) 08/04/24 08:51 BUN/Creatinine Ratio 22.8 RATIO (10-20) H 08/04/24 08:51 Glucose 128 mg/dL (74-106) H 08/04/24 08:51 Vancomycin Trough 23.9 ug/mL (5.0-15.0) H 08/04/24 01:12 Random Vancomycin 18.4 ug/mL (0.0-15.0) H 08/04/24 08:51 Microbiology Microbiology: Microbiology 08/02/24 13:59 Bronchial Lavage - Left Lower Lobe Gram Stain - Final 08/02/24 13:59 Bronchial Lavage - Left Lower Lobe Respiratory Culture - Preliminary Appears to be normal respiratory elizabeth. Further studies to follow. 08/02/24 13:59 Bronchial Lavage - Right Lower Lobe Gram Stain - Final 08/02/24 13:59 Bronchial Lavage - Right Lower Lobe Respiratory Culture - Preliminary Appears to be normal respiratory elizabeth. Further studies to follow. 07/29/24 13:43 Blood Culture (Wb) - Port Blood Culture - Final No growth in 5 days. 07/29/24 13:18 Blood Culture (Wb) - Port Blood Culture - Final No growth in 5 days. 07/30/24 03:10 Urine, Random Streptococcus pneumoniae Antigen (M - Final 07/30/24 03:10 Urine, Random Legionella Antigen - Final 07/30/24 00:10 Nasal Secretion MRSA (PCR) - Final 07/29/24 17:42 Mucosa - Nasopharyngeal Respiratory Panel (PCR) - Final 07/29/24 13:18 Mucosa - Nose SARS-CoV-2, Influenza & RSV (PCR) - Final Pharmacy Plan for Drug Dosing Pharmacy Plan for Drug Dosing: VANCOMYCIN LEVEL RECEIVED Current Vancomycin Dose: held due to high trough Number of Doses Received: many Vancomycin Level: 18.4 mg/dl Hours Since Last Dose: 15 Renal Function: SCr 0.74 mg/dl (08/03), crCl 122 ml/min Renal Function Trend: stable Vancomycin Plan/Comments: 15 hour random level is now therapeutic at 18.4 mg/dl (goal 15-20). Will start 500mg Q8 and get a trough prior to 4th dose. Will give x1 500mg then start Q8 dosing to maintain dosing schedule of 0130,0930,1730 to coordinate with Zosyn as patient is refusing trough/blood draws unless taken from port. First 2 doses will only be 7 hours apart. Pending Level: 08/05/24 @ 0900 Pharmacy Service will continue to monitor and adjust dosing as required.
[2024-08-04] MEDS: Vancomycin IV 500 MG/100 ML BAG 100 MG IV ×2 (10:50→17:45)
--- NOTE | 2024-08-04 11:48 | PCM.PN.INT ---
Assessment & Plan Assessment/Plan (1) Bilateral interstitial pneumonia: PLAN: Plan RECOMMENDATIONS: 1. Continue empiric broad-spectrum antimicrobials for now. 2. Continue scheduled diuretics as ordered, along with corticosteroids. 3. Obtain stat CT abdomen/pelvis to evaluate for interval disease progression. 4. Continue appropriate DVT prophylaxis. IMPRESSIONS: 1. Acute hypoxemic respiratory failure with multifocal airspace opacities on chest imaging concerning for pneumonia The patient has a history of metastatic adenocarcinoma of the colon and is currently undergoing chemotherapy. The patient began to develop generalized malaise and shortness of breath in between and . Unfortunately, the patient's symptoms continued to persist. Therefore, the patient was referred to the emergency department to be evaluated for pulmonary embolism, which was ultimately ruled out. The patient has evidence of bibasilar reticular nodular opacities concerning for pneumonia versus metastatic disease. The patient has been maintained on appropriate broad-spectrum antimicrobial therapy, despite negative infectious workup. In fact, bronchoscopy with bilateral lower lobe BAL was completed on August 02. In addition, the patient has been maintained on scheduled diuretic therapy and IV steroids, without any discernible improvement in his respiratory status. Therefore, it seems more likely that his underlying presentation may have been secondary to metastatic disease progression. Unfortunately, the patient is too high risk to perform any type of pulmonary based biopsy to confirm the presence of metastatic disease. This case was discussed with the patient's oncologist, who ultimately recommended obtaining a repeat CT abdomen/pelvis to evaluate for interval disease progression. If present, we will need to discuss prognosis and goals of care with the patient and his family. For now, we will continue current supportive care. 2. History of metastatic adenocarcinoma of the colon/protein calorie malnutrition/hypertension/anemia Complicates care, management, recovery and prognosis. Continue supportive care as noted above. This note was generated with [employer] dictation software. It may contain incorrect words, spelling, and punctuation that were not noted in checking the note before signing. Subjective Subjective The patient was seen and examined at the bedside this morning. Events from the last 24 hours have been reviewed. The patient is currently afebrile, hemodynamically stable and maintaining appropriate oxygen saturations on heated high flow oxygen with a flow rate of 55 L/min and FiO2 of 90%. Despite aggressive medical therapy to address underlying pneumonia, the patient's respiratory status remains tenuous. His cultures from his BAL have not demonstrated any growth to date. The patient has remained on diuretics and steroids without any improvement in his respiratory status. His presenting CT imaging of the chest was certainly concerning for potential metastatic disease. I did reach out to personally speak with the patient's oncologist, Dr. Yates, who also voiced concern over pulmonary metastatic disease. In light of the patient's failure to improve clinically, I do suspect that this is a discernible concern. The case was reviewed with Dr. Issa and radiology, who did not feel that the patient would be amenable to percutaneous biopsy. Therefore, the recommendation, per the patient's oncologist, was to proceed with repeat imaging of the abdomen and pelvis to evaluate for progressive disease. These findings and recommendations were conveyed to the patient and his this morning at the bedside. White blood cell count is elevated at 13,000 with a hemoglobin of 9.9 g/dL and normal platelet count. Chemistry profile was unremarkable. Objective Data Objective Data The patient's most recent lab work, culture data and imaging studies have all been personally reviewed. BAL cultures have not demonstrated any growth to date. Vital Signs: Vital Signs Temp Pulse Resp BP Pulse Ox O2 Del Method O2 Flow Rate 97.6 F L 82 22 H 147/83 H 93 Airvo 55 08/04/24 10:00 08/04/24 10:00 08/04/24 10:00 08/04/24 10:00 08/04/24 10:00 08/04/24 10:00 08/04/24 10:00 FiO2 89 08/04/24 10:00 Oxygen Flow Rate (L/min) 55 Oxygen Delivery Method Airvo Weight: 148 lb 9.465 oz Body Mass Index (BMI) 21.9 Intake & Output: Intake and Output for Last 24 Hours 08/02/24 08/03/24 08/04/24 23:59 23:59 23:59 Intake Total 2575.00 / 2575.00 1915 / 1915 320 / 320 Output Total 3605 / 4205 3000 / 4275 1525 / 1525 Balance -1030.00 / -1630.00 -1085 / -2360 -1205 / -1205 Medical Nutrition Assessment Dietitian: Malnutrition Criteria Met Start: 07/30/24 12:45 Freq: Status: Active Protocol: Document 08/02/24 13:15 SLA (Rec: 08/02/24 13:15 SLA [id number]) Nutrition Malnutrition Evidence of Malnutrition Exists Yes Malnutrition (severe): Chronic Evidenced By Suboptimal Energy Intake ( Severe),Weight Loss (Severe), Physical Changes (Severe) Clinical Problem Chronic Disease or Condition Related Malnutrition Etiology related to colon cancer and possible mets Signs/Symptoms as evidenced by ~30% unintentional wt loss relief captain and po intake meeting <75% of est nutritional needs x 1 yr and obvious fat/muscle loss throughout body. Status Active Problem Recommendation Dietitian Recommendations/Changes Rec liberalize diet to Regular consistency per pt request Will discontinue magic cup w/ lunch and dinner for increased nutrition if consumed - does not like ensure/boost/premier protein/CIB anymore Rec appetite stimulant to help encourage increased po intake Rec consider more aggressive nutrition support if po intake fails to improve and wt loss continues to help prevent further decline in pt nutritional status - if in accordance w/ pt/family wishes . Lab / Micro Data Attestation: I reviewed the patient's lab results. 08/04/24 08:51 08/04/24 08:51 Labs: Laboratory Results - last 24 hr 08/02/24 13:59: Fl Pathologist Comment Reviewed 08/02/24 13:59: Fl Pathologist Comment Reviewed 08/04/24 01:12: Vancomycin Trough 23.9 H 08/04/24 08:51: WBC 13.2 H, RBC 3.91 L, Hgb 9.9 L, Hct 31.4 L, MCV 80.3, MCH 25.3 L, MCHC 31.5 L, RDW Std Deviation 45.4 H, RDW Coeff of Elysia 15.8 H, Plt Count 345, MPV 11.0, Immature Gran % (Auto) 0.900, Neut % (Auto) 90.4 H, Lymph % (Auto) 3.3 L, [place] % (Auto) 5.2, Eos % (Auto) 0.0, Baso % (Auto) 0.2, Absolute Neuts (auto) 11.9 H, Absolute Lymphs (auto) 0.44 L, Nucleated RBC % 0, Sodium 139, Potassium 3.6, Chloride 101, Carbon Dioxide 31.0, Anion Gap 7, BUN 17, Creatinine 0.74, Estim Creat Clear Calc 122.71, Est GFR (MDRD) Af Amer 147, Est GFR (MDRD) Non-Af 122, BUN/Creatinine Ratio 22.8 H, Glucose 128 H, Calcium 8.2 L, Random Vancomycin 18.4 H Micro: Microbiology 08/02/24 13:59 Bronchial Lavage - Left Lower Lobe Gram Stain - Final 08/02/24 13:59 Bronchial Lavage - Left Lower Lobe Respiratory Culture - Preliminary Appears to be normal respiratory elizabeth. Further studies to follow. 08/02/24 13:59 Bronchial Lavage - Right Lower Lobe Gram Stain - Final 08/02/24 13:59 Bronchial Lavage - Right Lower Lobe Respiratory Culture - Preliminary Appears to be normal respiratory elizabeth. Further studies to follow. 07/29/24 13:43 Blood Culture (Wb) - Port Blood Culture - Final No growth in 5 days. 07/29/24 13:18 Blood Culture (Wb) - Port Blood Culture - Final No growth in 5 days. 07/30/24 03:10 Urine, Random Streptococcus pneumoniae Antigen (M - Final 07/30/24 03:10 Urine, Random Legionella Antigen - Final 07/30/24 00:10 Nasal Secretion MRSA (PCR) - Final 07/29/24 17:42 Mucosa - Nasopharyngeal Respiratory Panel (PCR) - Final 07/29/24 13:18 Mucosa - Nose SARS-CoV-2, Influenza & RSV (PCR) - Final Radiography Diagnostic Testing: Radiology Impression Chest X-Ray 08/03/24 08:45 IMPRESSION: Bilateral airspace disease worse in the left hemithorax with small bilateral pleural effusions. Cannot rule out pulmonary metastasis. Follow-up recommended. Electronically Signed: Dontrell Issa MD at 8:58 EST , Physical Exam Const alert and no apparent distress Constitutional Narrative: is present at the bedside. Fatigued in appearance. General Appearance: cooperative and ill appearing HEENT normocephalic and head/scalp atraumatic Eyes PERRL, EOMs intact bilaterally and conjunctivae normal Neck supple General: trachea midline Chest inspection of chest normal Resp normal respiratory effort Effort and Inspection: tachypneic Auscultation: diminished lung sounds; Negative for rales, rhonchi or wheezes Cardio regular rate and regular rhythm GI normal to inspection, nondistended, normoactive bowel sounds Extremity no clubbing, cyanosis or edema Skin no rashes or lesions noted Neuro CN's II-XII intact bilaterally, moves all extremities and no focal motor deficits Psych Mood & Affect: flat affect Charges/Coding Visit Charges Inpatient E&M: 54410 Subs Hosp L3
--- NOTE | 2024-08-04 11:54 | PN.HOSP_ITS ---
Subjective Subjective Still on Airvo with very little improvement in his oxygenation despite antibiotics and Lasix. He is down to being about 6 L positive Objective Data Objective Data Vital Signs: Vital Signs Temp Pulse Resp BP Pulse Ox O2 Del Method O2 Flow Rate 97.6 F L 82 22 H 147/83 H 93 Airvo 55 08/04/24 10:00 08/04/24 10:00 08/04/24 10:00 08/04/24 10:00 08/04/24 10:00 08/04/24 10:00 08/04/24 10:00 FiO2 89 08/04/24 10:00 Oxygen Flow Rate (L/min) 55 Oxygen Delivery Method Airvo Weight: 148 lb 9.465 oz Body Mass Index (BMI) 21.9 Intake & Output: Intake and Output for Last 24 Hours 08/03/24 08/04/24 08/05/24 03:59 03:59 03:59 Intake Total 2235.00 / 2235.00 1965 / 1965 160 / 160 Output Total 3605 / 3605 3675 / 3675 250 / 250 Balance -1370.00 / -1370.00 -1710 / -1710 -90 / -90 Medical Nutrition Assessment Dietitian: Malnutrition Criteria Met Start: 07/30/24 12:45 Freq: Status: Active Protocol: Document 08/02/24 13:15 SLA (Rec: 08/02/24 13:15 SLA [id number]) Nutrition Malnutrition Evidence of Malnutrition Exists Yes Malnutrition (severe): Chronic Evidenced By Suboptimal Energy Intake ( Severe),Weight Loss (Severe), Physical Changes (Severe) Clinical Problem Chronic Disease or Condition Related Malnutrition Etiology related to colon cancer and possible mets Signs/Symptoms as evidenced by ~30% unintentional wt loss guard captain and po intake meeting <75% of est nutritional needs x 1 yr and obvious fat/muscle loss throughout body. Status Active Problem Recommendation Dietitian Recommendations/Changes Rec liberalize diet to Regular consistency per pt request Will discontinue magic cup w/ lunch and dinner for increased nutrition if consumed - does not like ensure/boost/premier protein/CIB anymore Rec appetite stimulant to help encourage increased po intake Rec consider more aggressive nutrition support if po intake fails to improve and wt loss continues to help prevent further decline in pt nutritional status - if in accordance w/ pt/family wishes . Lab / Micro Data 08/04/24 08:51 08/04/24 08:51 Labs: Laboratory Results - last 24 hr 08/04/24 01:12: Vancomycin Trough 23.9 H 08/04/24 08:51: WBC 13.2 H, RBC 3.91 L, Hgb 9.9 L, Hct 31.4 L, MCV 80.3, MCH 25.3 L, MCHC 31.5 L, RDW Std Deviation 45.4 H, RDW Coeff of Elysia 15.8 H, Plt Count 345, MPV 11.0, Immature Gran % (Auto) 0.900, Neut % (Auto) 90.4 H, Lymph % (Auto) 3.3 L, Andrew % (Auto) 5.2, Eos % (Auto) 0.0, Baso % (Auto) 0.2, Absolute Neuts (auto) 11.9 H, Absolute Lymphs (auto) 0.44 L, Nucleated RBC % 0, Sodium 139, Potassium 3.6, Chloride 101, Carbon Dioxide 31.0, Anion Gap 7, BUN 17, Creatinine 0.74, Estim Creat Clear Calc 122.71, Est GFR (MDRD) Af Amer 147, Est GFR (MDRD) Non-Af 122, BUN/Creatinine Ratio 22.8 H, Glucose 128 H, Calcium 8.2 L , Random Vancomycin 18.4 H Micro: Microbiology 08/02/24 13:59 Bronchial Lavage - Left Lower Lobe Gram Stain - Final 08/02/24 13:59 Bronchial Lavage - Left Lower Lobe Respiratory Culture - Preliminary Appears to be normal respiratory elizabeth. Further studies to follow. 08/02/24 13:59 Bronchial Lavage - Right Lower Lobe Gram Stain - Final 08/02/24 13:59 Bronchial Lavage - Right Lower Lobe Respiratory Culture - Preliminary Appears to be normal respiratory elizabeth. Further studies to follow. 07/29/24 13:43 Blood Culture (Wb) - Port Blood Culture - Final No growth in 5 days. 07/29/24 13:18 Blood Culture (Wb) - Port Blood Culture - Final No growth in 5 days. 07/30/24 03:10 Urine, Random Streptococcus pneumoniae Antigen (M - Final 07/30/24 03:10 Urine, Random Legionella Antigen - Final 07/30/24 00:10 Nasal Secretion MRSA (PCR) - Final 07/29/24 17:42 Mucosa - Nasopharyngeal Respiratory Panel (PCR) - Final 07/29/24 13:18 Mucosa - Nose SARS-CoV-2, Influenza & RSV (PCR) - Final Physical Exam Narrative General: Alert, Oriented x3, Cooperative, No apparent distress HEENT: Atraumatic, PERRLA, EOMI, Normocephalic Oral: Moist Mucosa Neck: Supple, No JVD Lungs: Diminished, Normal air movement, No rhonchi, scattered wheeze, No rales Cardiovascular: Regular rate, Regular Rhythm, Normal S1, Normal S2, No murmurs Abdomen: Soft, Non Tender, Non-Distended, No Hepato-splenomegaly Extremities: No edema, Capillary Refill Less than 3 Seconds Skin: No rashes, No breakdown Musculoskeletal: No Tenderness to Palpation of Joints or Extremities Neurological: No focal neurological deficits, Motor Exam 5/5 strength throughout, Sensory exam intact to light touch and pain Psych/Mental Status: Flat Assessment & Plan Assessment/Plan (1) Bilateral interstitial pneumonia: PLAN: Plan # Multifocal airspace opacities with hypoxia -Concerning for pneumonia versus metastatic adenocarcinoma -Patient on broad-spectrum antibiotics -Evaluated by pulmonology and discussed with circus train supervisor, if patient improves over the weekend with IV antibiotics he can be discharged on oral antibiotics and an outpatient CT but if not we will revisit possible bronchoscopy early in the week -Incentive spirometer ordered -Continue supportive care -07/31: Overnight patient with O2 sat to 88% now on 2 L and stable. Continuing broad-spectrum antibiotics, may need bronc next week if not improving -08/01: Remains on O2 despite antibiotics, may need bronchoscopy per previous discussion with pulmonology. Patient will be made n.p.o. at midnight in the event this would be able to happen tomorrow if pulmonology deems this necessary. Also hold Lovenox and put order for SCDs. Will resume Lovenox if no bronchoscopy planned -08/02: Patient for bronchoscopy today, continuing antibiotics at this time and supportive care. Discussed with pulmonology 08/03/2024: Increased work of breathing after his bronchoscopy, attempted BiPAP which she did not tolerate so we will continue with Lasix since he is 8 L positive and will continue with the Airvo hopefully will be able to have significant improvement in the next 24 to 48 hours 08/04/2024: Still on Airvo will obtain a CT of his abdomen and pelvis with contrast to determine whether or not there is been significant metastatic progression if so may need to be transferred to a higher level of care for biopsy of lung nodules. There is a concern that if he does have a pneumothorax he will be intubated and given his high FiO2 requirements he may not be able to be extubated therefore may need a tertiary level of care # History of metastatic adenocarcinoma of the colon -Following with Dr. Yates on outpatient basis -Status post colon resection -Actively undergoing chemo -Will need to follow-up on discharge -07/31: May need the [facility] next week, patient's home pain medications were continued -08/01: Titrate pain medication as needed, supportive care -08/02: Continue supportive care # Poor p.o. intake -Patient appears somewhat clinically dry, IV fluids -07/31: Continues to have poor p.o. intake, will continue IV fluids -08/01: Minimize time patient is n.p.o. as possible, Magic cup of lunch and dinner -08/02: Resume diet when possible after bronchoscopy DVT: SCDs Charges/Coding Visit Charges Inpatient E&M: 96804 Subs Hosp L2
[2024-08-04] MEDS: Ondansetron 4 MG/2 ML Vial IV (12:31)
--- NOTE | 2024-08-04 13:37 | CT_ITS ---
STUDY: CT ABDOMEN AND PELVIS WITH CONTRAST REASON FOR EXAM: Male, 44 years old. Eval for disease progression, h/o colon CA RADIATION DOSAGE (If Supplied By Facility): CTDIvol = ( 9.19 ) mGy, DLP = ( 558.70 ) mGycm TECHNIQUE: Transaxial images were obtained from the dome of the diaphragm to the symphysis pubis without oral contrast. Oral and amp; IV Gastrografin and amp; 100mL Isovue-300 was administered. Sagittal and coronal images were reconstructed. Individualized dose optimization techniques were used for this CT. COMPARISON: Comparison is made with prior examination May 02, 2024. FINDINGS: A Port-A-Cath is seen within the superior vena cava. Bilateral pleural effusions with bibasilar infiltration and/or atelectasis. Groundglass appearance with multiple nodular densities. Metastasis should be ruled out. The visualized portions of the heart are within normal limits. There is decreased attenuation of the liver consistent with steatosis. Normal gallbladder and extrahepatic biliary system. Normal spleen. Normal pancreas. Normal bilateral adrenal glands. Mild degree of right hydronephrosis. Normal left kidney. Normal visualized stomach. 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 The previously seen small bowel dilatation has resolved. Anastomosis seen in the rectum. Presacral soft tissue prominence. The appendix is visualized and appears normal. Normal abdominal aorta. Normal inferior vena cava. There is retroperitoneal lymphadenopathy with enlarged nodes greater than 10-15mm in the short axis. Normal urinary bladder. Normal abdominal wall. Normal osseous structures. CT/Abdomen/Pelvis WITH Contrast IMPRESSION: New bilateral pleural effusions with bibasilar infiltration and/or atelectasis with findings suggestive of pulmonary metastasis. Diffuse fatty infiltration of the liver. Progressive retroperitoneal lymphadenopathy. Mild right hydronephrosis. Presacral soft tissue prominence which has progressed as compared to prior study. Electronically Signed: Dontrell Issa MD at 13:53 EST ,
[2024-08-04] MEDS: proCHLORPERazine 10 MG/2 ML Vial 5 MG IV (14:30)
[2024-08-04] MEDS: LORazepam 2 MG/ML Syringe 0.5 MG IV ×2 (17:03→20:39)
--- NOTE | 2024-08-04 22:30 | RAD_ITS ---
STUDY: X-RAY CHEST REASON FOR EXAM: Male, 44 years old. hypoxia TECHNIQUE: Single AP portable view of the chest. COMPARISON: 08/03/2024 FINDINGS: Stable indwelling right central catheter. Stable widespread bilateral pulmonary opacities most pronounced in the lung bases, left worse than right. Findings are consistent with pulmonary edema or multifocal pneumonia. Stable probable bilateral small effusions. Grossly normal heart size. RAD/Chest 1 View (Portable) IMPRESSION: No significant change since yesterday. Electronically Signed: Rodriguez Alexandra MD at 22:58 EST ,
[2024-08-04] MEDS: LORazepam 2 MG/ML Syringe 1 MG IV (22:35)
[2024-08-04 23:08] LABS: Allen Test Positive; Base Excess 14 mmol/L (-2 to +2); Bicarbonate 37.4 mmol/L (22-26); Blood Gas Specimen Type ART; Mode Not entered; O2 Delivery Device BiPAP; PEEP 8; PO2 65 mmHG (75-100); RR 12; SITE R Brach; SO2 93 % (95-99); Total Carbon Dioxide 39 mmol/L; pCO2 49.8 mmHg (35-45); pH 7.48 (7.35-7.45)
[2024-08-05] VITALS (30 sets, daily range): BP systolic 115–147; BP diastolic 77–110; PULSE 49–113; RESP 12–43; TEMP 36.2–36.7; O2SAT 20–99; BMI 20.1
[2024-08-05] MEDS: dexMEDEtomidine 400 MCG in 0.9% Normal Saline (100mL Bag) 96 ML 8.4 MCG CONT INF (00:15)
--- NOTE | 2024-08-05 00:57 | PCM.HOSP.N ---
Hospitalist Note I was contacted by SHREDDER TENDER PEAT earlier in the shift with patient ripping off BiPAP mask and appearing agitated and uncomfortable. He was given an additional dose of Ativan 1 mg IV once with transient improvement and then repeated the same behaviors. Therefore, he was sent to the ICU to be can be started on Precedex to manage his agitation and for close monitoring so he does not remove his BiPAP. IMPREGNATING MACHINE OPERATOR was updated with plan. I was then able to go to the bedside and speak to the patient's and updated her on his condition with the patient's condition improved on Precedex drip.
[2024-08-05] MEDS: Vancomycin IV 500 MG/100 ML BAG 100 MG IV (02:38)
[2024-08-05] MEDS: Piperacil/Tazobactam 3.375 GM in 0.9% Normal Saline (50mL MB+) 50 ML IV ×2 (04:04→13:36)
[2024-08-05] MEDS: 0.9% Saline Lock 10 ML Syringe IV (05:52)
[2024-08-05] MEDS: dexMEDEtomidine 400 MCG in 0.9% Normal Saline (100mL Bag) 96 ML 20.2 MCG CONT INF (06:02)
[2024-08-05 06:11] LABS: Absolute Lymphocyte Count 0.34 X10^3/uL (0.83-4.51); Absolute Neutrophil Count 8.2 X10^3/uL (2.0-7.7); Hematocrit 28.5 % (40-54); Hemoglobin 8.9 g/dL (13.0-16.5); Lymphocyte # 0.34 X10^3/ul (0.83-4.51); Lymphocyte % 3.7 % (19-41); Mean Corp Hgb Conc 31.2 g/dL (32-36); Mean Corpuscular Volume 80.1 fL (80-94); Mean Platelet Vol. 10.8 fl (6.2-12.0); Monocyte# 0.63 X10^3/uL; Monocyte% 6.8 % (0-10); NRBC Flagged by Analyzer 0 % (0-5); Neutrophil # 8.15 X10^3/uL (2.7-7.7); Neutrophil % 88.1 % (47-70); POSITIVE DIFFERENTIAL YES; Platelet Count 260 K/mm3 (150-450); RBC Distribution Width CV 15.5 % (11.6-14.6); RBC Distribution Width SD 45.4 fl (35.1-43.9); Red Blood Count 3.56 M/mm3 (4.6-6.2); White Blood Count 9.3 K/mm3 (4.4-11.0)
[2024-08-05 06:39] LABS: Anion Gap 8 (5-15); BUN 15 mg/dL (7-18); BUN/Creat Ratio 22.3 RATIO (10-20); Calcium,Total 7.9 mg/dL (8.5-10.1); Chloride 96 mmol/L (98-107); Creatinine, Serum 0.67 mg/dL (0.70-1.30); EST Glomerular Filtration Rate 137 mL/min (>60); Est Glom Filt Rate - Afr Amer 165 mL/min (>60); Estimated Creatinine Clearance 124.47 ml/min; Glucose 147 mg/dL (74-106); Sodium Level 141 mmol/L (136-145)
--- NOTE | 2024-08-05 07:43 | PCM.PN.INT ---
Assessment & Plan Assessment/Plan (1) Bilateral interstitial pneumonia: PLAN: Plan RECOMMENDATIONS: 1. Continue empiric broad-spectrum antimicrobials for now. 2. Continue corticosteroids. 3. Discontinue Lasix, given contraction alkalosis. 4. Electrolyte repletion as ordered. 5. Goals of care discussion with the patient and family. IMPRESSIONS: 1. Acute hypoxemic respiratory failure with multifocal airspace opacities on chest imaging concerning for pneumonia The patient has a history of metastatic adenocarcinoma of the colon and is currently undergoing chemotherapy. The patient began to develop generalized malaise and shortness of breath in between and . Unfortunately, the patient's symptoms continued to persist. Therefore, the patient was referred to the emergency department to be evaluated for pulmonary embolism, which was ultimately ruled out. The patient has evidence of bibasilar reticular nodular opacities concerning for pneumonia versus metastatic disease. The patient has been maintained on appropriate broad-spectrum antimicrobial therapy, despite negative infectious workup. In fact, bronchoscopy with bilateral lower lobe BAL was completed on August 02. In addition, the patient has been maintained on scheduled diuretic therapy and IV steroids, without any discernible improvement in his respiratory status. Therefore, it seems more likely that his underlying presentation may have been secondary to metastatic disease progression. Unfortunately, the patient is too high risk to perform any type of pulmonary based biopsy to confirm the presence of metastatic disease. CT imaging of the patient's abdomen and pelvis also confirmed evidence of underlying disease progression. Therefore, we will plan to discuss goals of care with the patient and family today. Following my discussion with his oncologist, the patient is likely hospice appropriate at this time. 2. History of metastatic adenocarcinoma of the colon/protein calorie malnutrition/hypertension/anemia Complicates care, management, recovery and prognosis. Continue supportive care as noted above. This note was generated with [employer] dictation software. It may contain incorrect words, spelling, and punctuation that were not noted in checking the note before signing. Subjective Subjective The patient was seen and examined at the bedside this morning. Events from the last 24 hours have been reviewed. The patient is currently afebrile, hemodynamically stable and maintaining appropriate oxygen saturations on BiPAP with an FiO2 requirement of 70%. The patient was transferred from progressive care unit to ICU overnight to be started on a Precedex drip to help facilitate BiPAP tolerance. He is currently documented to be overall net +6.6 L for the hospitalization. White blood cell count is normal. Hemoglobin is stable at 8.9 g/dL. Potassium is low at 3.0 with a bicarbonate of 37. CT imaging of the abdomen and pelvis completed yesterday did demonstrate findings concerning for underlying disease progression. Objective Data Objective Data The patient's most recent lab work, culture data and imaging studies have all been personally reviewed. BAL cultures have not demonstrated any growth to date. Vital Signs: Vital Signs Temp Pulse Resp BP Pulse Ox O2 Del Method O2 Flow Rate 98.1 F 52 L 22 H 132/83 H 95 Bi-pap 55 08/05/24 03:00 08/05/24 07:00 08/05/24 07:00 08/05/24 07:00 08/05/24 07:00 08/05/24 07:00 08/04/24 16:00 FiO2 70 08/05/24 07:00 Oxygen Flow Rate (L/min) 55 Oxygen Delivery Method Bi-pap Weight: 136 lb 7.458 oz Body Mass Index (BMI) 20.1 Intake & Output: Intake and Output for Last 24 Hours 08/03/24 08/04/24 08/05/24 23:59 23:59 23:59 Intake Total 1915 / 1915 680 / 680 242.48 / 242.48 Output Total 3000 / 4275 1525 / 1725 200 / 200 Balance -1085 / -2360 -845 / -1045 42.48 / 42.48 Medical Nutrition Assessment Dietitian: Malnutrition Criteria Met Start: 07/30/24 12:45 Freq: Status: Active Protocol: Document 08/02/24 13:15 SLA (Rec: 08/02/24 13:15 SLA ..25.7) Nutrition Malnutrition Evidence of Malnutrition Exists Yes Malnutrition (severe): Chronic Evidenced By Suboptimal Energy Intake ( Severe),Weight Loss (Severe), Physical Changes (Severe) Clinical Problem Chronic Disease or Condition Related Malnutrition Etiology related to colon cancer and possible mets Signs/Symptoms as 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 Status Active Problem Recommendation Dietitian Recommendations/Changes Rec liberalize diet to Regular consistency per pt request Will discontinue magic cup w/ lunch and dinner for increased nutrition if consumed - does not like ensure/boost/premier protein/CIB anymore Rec appetite stimulant to help encourage increased po intake Rec consider more aggressive nutrition support if po intake fails to improve and wt loss continues to help prevent further decline in pt nutritional status - if in accordance w/ pt/family wishes . Lab / Micro Data Attestation: I reviewed the patient's lab results. 08/05/24 05:55 08/05/24 05:55 Labs: Laboratory Results - last 24 hr 08/02/24 13:59: Miscellaneous Cytology SEE PATHOLOGY REPORT 08/02/24 13:59: Miscellaneous Cytology SEE PATHOLOGY REPORT 08/04/24 08:51: WBC 13.2 H, RBC 3.91 L, Hgb 9.9 L, Hct 31.4 L, MCV 80.3, MCH 25.3 L, MCHC 31.5 L, RDW Std Deviation 45.4 H, RDW Coeff of Elysia 15.8 H, Plt Count 345, MPV 11.0, Immature Gran % (Auto) 0.900, Neut % (Auto) 90.4 H, Lymph % (Auto) 3.3 L, [place] % (Auto) 5.2, Eos % (Auto) 0.0, Baso % (Auto) 0.2, Absolute Neuts (auto) 11.9 H, Absolute Lymphs (auto) 0.44 L, Nucleated RBC % 0, Sodium 139, Potassium 3.6, Chloride 101, Carbon Dioxide 31.0, Anion Gap 7, BUN 17, Creatinine 0.74, Estim Creat Clear Calc 122.71, Est GFR (MDRD) Af Amer 147, Est GFR (MDRD) Non-Af 122, BUN/Creatinine Ratio 22.8 H, Glucose 128 H, Calcium 8.2 L, Random Vancomycin 18.4 H 08/05/24 05:55: WBC 9.3, RBC 3.56 L, Hgb 8.9 L, Hct 28.5 L, MCV 80.1, MCH 25.0 L, MCHC 31.2 L, RDW Std Deviation 45.4 H, RDW Coeff of Elysia 15.5 H, Plt Count 260, MPV 10.8, Immature Gran % (Auto) 1.400 H, Neut % (Auto) 88.1 H, Lymph % (Auto) 3.7 L, [place] % (Auto) 6.8, Eos % (Auto) 0.0, Baso % (Auto) 0.0, Absolute Neuts (auto) 8.2 H, Absolute Lymphs (auto) 0.34 L, Nucleated RBC % 0, Sodium 141, Potassium 3.0 L, Chloride 96 L, Carbon Dioxide 37.0 H, Anion Gap 8, BUN 15, Creatinine 0.67 L, Estim Creat Clear Calc 124.47, Est GFR (MDRD) Af Amer 165, Est GFR (MDRD) Non-Af 137, BUN/Creatinine Ratio 22.3 H, Glucose 147 H, Calcium 7.9 L Micro: Microbiology 08/02/24 13:59 Bronchial Lavage - Left Lower Lobe Gram Stain - Final 08/02/24 13:59 Bronchial Lavage - Left Lower Lobe Respiratory Culture - Preliminary Appears to be normal respiratory elizabeth. Further studies to follow. 08/02/24 13:59 Bronchial Lavage - Right Lower Lobe Gram Stain - Final 08/02/24 13:59 Bronchial Lavage - Right Lower Lobe Respiratory Culture - Preliminary Appears to be normal respiratory elizabeth. Further studies to follow. 07/29/24 13:43 Blood Culture (Wb) - Port Blood Culture - Final No growth in 5 days. 07/29/24 13:18 Blood Culture (Wb) - Port Blood Culture - Final No growth in 5 days. 07/30/24 03:10 Urine, Random Streptococcus pneumoniae Antigen (M - Final 07/30/24 03:10 Urine, Random Legionella Antigen - Final 07/30/24 00:10 Nasal Secretion MRSA (PCR) - Final 07/29/24 17:42 Mucosa - Nasopharyngeal Respiratory Panel (PCR) - Final 07/29/24 13:18 Mucosa - Nose SARS-CoV-2, Influenza & RSV (PCR) - Final ABG Data ABG results: ABG 08/04/24 23:03 Specimen Type ART Sample Site R Brach pH 7.48 H Bicarbonate Actual 37.4 H Total CO2 39 Base Excess 14 H O2 Saturation 93 L O2 % 80.0 ABG pCO2 49.8 H ABG pO2 65 L Dorian Test Positive Respiration Rate 12 O2 Delivery Device BiPAP Vent Mode Not entered POC PEEP 8 Radiography Diagnostic Testing: Radiology Impression Abdomen/Pelvis CT 08/04/24 13:37 IMPRESSION: New bilateral pleural effusions with bibasilar infiltration and/or atelectasis with findings suggestive of pulmonary metastasis. Diffuse fatty infiltration of the liver. Progressive retroperitoneal lymphadenopathy. Mild right hydronephrosis. Presacral soft tissue prominence which has progressed as compared to prior study. Electronically Signed: Dontrell Issa MD at 13:53 EST , Physical Exam Const no apparent distress Constitutional Narrative: Somnolent with BiPAP mask in place. Family is present at the bedside. General Appearance: ill appearing and frail HEENT normocephalic and head/scalp atraumatic Eyes PERRL, EOMs intact bilaterally and conjunctivae normal Neck supple General: trachea midline Chest inspection of chest normal Resp Effort and Inspection: tachypneic Auscultation: diminished lung sounds; Negative for rales, rhonchi or wheezes Cardio S1 normal heart sound and S2 normal heart sound Rate: bradycardia GI normal to inspection, nondistended, normoactive bowel sounds Extremity no clubbing, cyanosis or edema Skin no rashes or lesions noted Neuro no focal motor deficits Psych Mood & Affect: flat affect Charges/Coding Visit Charges Inpatient E&M: 21725 Subs Hosp L3
[2024-08-05] MEDS: Vancomycin Trough/Random Due 1 LAB MC (08:21)
[2024-08-05 09:08] LABS: Vancomycin, Trough Level 19.9 ug/mL (5.0-15.0)
--- NOTE | 2024-08-05 09:24 | PCM.PN.HOSP ---
Subjective Subjective Had to be admitted to the ICU for Precedex drip secondary to his agitation with BiPAP. He was tolerating a little bit yesterday after Ativan but repeated doses of Ativan did not help Objective Data Objective Data Vital Signs: Vital Signs Temp Pulse Resp BP Pulse Ox O2 Del Method O2 Flow Rate 97.1 F L 49 L 24 H 136/77 H 97 Bi-pap 55 08/05/24 08:00 08/05/24 09:00 08/05/24 09:00 08/05/24 09:00 08/05/24 09:00 08/05/24 09:00 08/04/24 16:00 FiO2 70 08/05/24 09:00 Oxygen Flow Rate (L/min) 55 Oxygen Delivery Method Bi-pap Weight: 136 lb 7.458 oz Body Mass Index (BMI) 20.1 Intake & Output: Intake and Output for Last 24 Hours 08/04/24 08/05/24 08/06/24 03:59 03:59 03:59 Intake Total 1965 / 1965 716.36 / 721.41 137.16 / 137.16 Output Total 3675 / 3675 450 / 450 Balance -1710 / -1710 266.36 / 271.41 137.16 / 137.16 Medical Nutrition Assessment Dietitian: Malnutrition Criteria Met Start: 07/30/24 12:45 Freq: Status: Active Protocol: Document 08/02/24 13:15 SLA (Rec: 08/02/24 13:15 SLA [id number]) Nutrition Malnutrition Evidence of Malnutrition Exists Yes Malnutrition (severe): Chronic Evidenced By Suboptimal Energy Intake ( Severe),Weight Loss (Severe), Physical Changes (Severe) Clinical Problem Chronic Disease or Condition Related Malnutrition Etiology related to colon cancer and possible mets Signs/Symptoms 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 Status Active Problem Recommendation Dietitian Recommendations/Changes Rec liberalize diet to Regular consistency per pt request Will discontinue magic cup w/ lunch and dinner for increased nutrition if consumed - does not like ensure/boost/premier protein/CIB anymore Rec appetite stimulant to help encourage increased po intake Rec consider more aggressive nutrition support if po intake fails to improve and wt loss continues to help prevent further decline in pt nutritional status - if in accordance w/ pt/family wishes . Lab / Micro Data 08/05/24 05:55 08/05/24 05:55 Labs: Laboratory Results - last 24 hr 08/02/24 13:59: Miscellaneous Cytology SEE PATHOLOGY REPORT 08/02/24 13:59: Miscellaneous Cytology SEE PATHOLOGY REPORT 08/04/24 08:51: WBC 13.2 H, RBC 3.91 L, Hgb 9.9 L, Hct 31.4 L, MCV 80.3, MCH 25.3 L, MCHC 31.5 L, RDW Std Deviation 45.4 H, RDW Coeff of Elysia 15.8 H, Plt Count 345, MPV 11.0, Immature Gran % (Auto) 0.900, Neut % (Auto) 90.4 H, Lymph % (Auto) 3.3 L, [place] % (Auto) 5.2, Eos % (Auto) 0.0, Baso % (Auto) 0.2, Absolute Neuts (auto) 11.9 H, Absolute Lymphs (auto) 0.44 L, Nucleated RBC % 0, Sodium 139, Potassium 3.6, Chloride 101, Carbon Dioxide 31.0, Anion Gap 7, BUN 17, Creatinine 0.74, Estim Creat Clear Calc 122.71, Est GFR (MDRD) Af Amer 147, Est GFR (MDRD) Non-Af 122, BUN/Creatinine Ratio 22.8 H, Glucose 128 H, Calcium 8.2 L, Random Vancomycin 18.4 H 08/05/24 05:55: WBC 9.3, RBC 3.56 L, Hgb 8.9 L, Hct 28.5 L, MCV 80.1, MCH 25.0 L, MCHC 31.2 L, RDW Std Deviation 45.4 H, RDW Coeff of Elysia 15.5 H, Plt Count 260, MPV 10.8, Immature Gran % (Auto) 1.400 H, Neut % (Auto) 88.1 H, Lymph % (Auto) 3.7 L, [place] % (Auto) 6.8, Eos % (Auto) 0.0, Baso % (Auto) 0.0, Absolute Neuts (auto) 8.2 H, Absolute Lymphs (auto) 0.34 L, Nucleated RBC % 0, Sodium 141, Potassium 3.0 L, Chloride 96 L, Carbon Dioxide 37.0 H, Anion Gap 8, BUN 15, Creatinine 0.67 L, Estim Creat Clear Calc 124.47, Est GFR (MDRD) Af Amer 165, Est GFR (MDRD) Non-Af 137, BUN/Creatinine Ratio 22.3 H, Glucose 147 H, Calcium 7.9 L 08/05/24 08:20: Vancomycin Trough 19.9 H Micro: Microbiology 08/02/24 13:59 Bronchial Lavage - Left Lower Lobe Gram Stain - Final 08/02/24 13:59 Bronchial Lavage - Left Lower Lobe Respiratory Culture - Preliminary Appears to be normal respiratory elizabeth. Further studies to follow. 08/02/24 13:59 Bronchial Lavage - Right Lower Lobe Gram Stain - Final 08/02/24 13:59 Bronchial Lavage - Right Lower Lobe Respiratory Culture - Preliminary Appears to be normal respiratory elizabeth. Further studies to follow. 07/29/24 13:43 Blood Culture (Wb) - Port Blood Culture - Final No growth in 5 days. 07/29/24 13:18 Blood Culture (Wb) - Port Blood Culture - Final No growth in 5 days. 07/30/24 03:10 Urine, Random Streptococcus pneumoniae Antigen (M - Final 07/30/24 03:10 Urine, Random Legionella Antigen - Final 07/30/24 00:10 Nasal Secretion MRSA (PCR) - Final 07/29/24 17:42 Mucosa - Nasopharyngeal Respiratory Panel (PCR) - Final 07/29/24 13:18 Mucosa - Nose SARS-CoV-2, Influenza & RSV (PCR) - Final ABG Data ABG results: ABG 08/04/24 23:03 Specimen Type ART Sample Site R Brach pH 7.48 H Bicarbonate Actual 37.4 H Total CO2 39 Base Excess 14 H O2 Saturation 93 L O2 % 80.0 ABG pCO2 49.8 H ABG pO2 65 L Dorian Test Positive Respiration Rate 12 O2 Delivery Device BiPAP Vent Mode Not entered POC PEEP 8 Radiography Diagnostic Testing: Radiology Impression Abdomen/Pelvis CT 08/04/24 13:37 IMPRESSION: New bilateral pleural effusions with bibasilar infiltration and/or atelectasis with findings suggestive of pulmonary metastasis. Diffuse fatty infiltration of the liver. Progressive retroperitoneal lymphadenopathy. Mild right hydronephrosis. Presacral soft tissue prominence which has progressed as compared to prior study. Electronically Signed: Dontrell Issa MD at 13:53 EST , Physical Exam Narrative General: Sleepy, Cooperative, No apparent distress HEENT: Atraumatic, PERRLA, EOMI, Normocephalic Oral: Moist Mucosa Neck: Supple, No JVD Lungs: Diminished, Normal air movement, No rhonchi, scattered wheeze, No rales Cardiovascular: Regular rate, Regular Rhythm, Normal S1, Normal S2, No murmurs Abdomen: Soft, Non Tender, Non-Distended, No Hepato-splenomegaly Extremities: No edema, Capillary Refill Less than 3 Seconds Skin: No rashes, No breakdown Musculoskeletal: No Tenderness to Palpation of Joints or Extremities Neurological: No focal neurological deficits, Motor Exam 5/5 strength throughout, Sensory exam intact to light touch and pain Psych/Mental Status: Flat Assessment & Plan Assessment/Plan (1) Bilateral interstitial pneumonia: PLAN: Plan # Multifocal airspace opacities with hypoxia -Concerning for pneumonia versus metastatic adenocarcinoma -Patient on broad-spectrum antibiotics -Evaluated by pulmonology and discussed with podiatric technician, if patient improves over the weekend with IV antibiotics he can be discharged on oral antibiotics and an outpatient CT but if not we will revisit possible bronchoscopy early in the week -Incentive spirometer ordered -Continue supportive care -07/31: Overnight patient with O2 sat to 88% now on 2 L and stable. Continuing broad-spectrum antibiotics, may need bronc next week if not improving -08/01: Remains on O2 despite antibiotics, may need bronchoscopy per previous discussion with pulmonology. Patient will be made n.p.o. at midnight in the event this would be able to happen tomorrow if pulmonology deems this necessary. Also hold Lovenox and put order for SCDs. Will resume Lovenox if no bronchoscopy planned -08/02: Patient for bronchoscopy today, continuing antibiotics at this time and supportive care. Discussed with pulmonology 08/03/2024: Increased work of breathing after his bronchoscopy, attempted BiPAP which she did not tolerate so we will continue with Lasix since he is 8 L positive and will continue with the Airvo hopefully will be able to have significant improvement in the next 24 to 48 hours 08/04/2024: Still on Airvo will obtain a CT of his abdomen and pelvis with contrast to determine whether or not there is been significant metastatic progression if so may need to be transferred to a higher level of care for biopsy of lung nodules. There is a concern that if he does have a pneumothorax he will be intubated and given his high FiO2 requirements he may not be able to be extubated therefore may need a tertiary level of care 08/05/2024: I had a 20-minute advance care planning conversation with prognosis and especially in the setting of possible lung metastases and pleural effusions. They would like to transfer to [facility] if possible for any surgical or procedural interventions as there is a high risk of needing intubation and they would like to do that where their oncologist is if necessary. I do have a call out to [facility] and in the meantime we will continue to communicate with family to decide with plan of care and goals of care are. # History of metastatic adenocarcinoma of the colon -Following with Dr. Yates on outpatient basis -Status post colon resection -Actively undergoing chemo -Will need to follow-up on discharge -07/31: May need [facility] next week, patient's home pain medications were continued -08/01: Titrate pain medication as needed, supportive care -08/02: Continue supportive care # Poor p.o. intake -Patient appears somewhat clinically dry, IV fluids -07/31: Continues to have poor p.o. intake, will continue IV fluids -08/01: Minimize time patient is n.p.o. as possible, Magic cup of lunch and dinner -08/02: Resume diet when possible after bronchoscopy DVT: SCDs Charges/Coding Multi Select Codes Visit Charges Visit Charges: 53373 Subs Hosp L2 Hospitalists' Procedures Procedures: 07427 Advncd Care Plan 30 Min
[2024-08-05] MEDS: Potassium Chloride 20mEq/100mL 20 MEQ/100 ML IV.SOLN. 100 MEQ IV BOLUS ×3 (09:59→12:05)
[2024-08-05] MEDS: Menthol/Lanolin/Calamine/Znox 113 GM Tube 1 APPLIC TOPICAL ×2 (10:06→13:39)
[2024-08-05] MEDS: Enoxaparin 40 MG/0.4 ML Syringe SC (10:06)
--- NOTE | 2024-08-05 10:33 | PCM.RX.CS ---
Consult Antibiotic Management Pharmacy has been consulted to manage selected antibiotic: Vancomycin Type of Intervention Type of Consult: Follow-up Suspected Infection Suspected Infection: Pneumonia Labs Labs: Sodium 141 mmol/L (136-145) 08/05/24 05:55 Potassium 3.0 mmol/L (3.5-5.1) L 08/05/24 05:55 Chloride 96 mmol/L (98-107) L 08/05/24 05:55 Carbon Dioxide 37.0 mmol/L (21.0-32.0) H 08/05/24 05:55 Anion Gap 8 (5-15) 08/05/24 05:55 BUN 15 mg/dL (7-18) 08/05/24 05:55 Creatinine 0.67 mg/dL (0.70-1.30) L 08/05/24 05:55 Est GFR (MDRD) Af Amer 165 mL/min (>60) 08/05/24 05:55 Est GFR (MDRD) Non-Af 137 mL/min (>60) 08/05/24 05:55 BUN/Creatinine Ratio 22.3 RATIO (10-20) H 08/05/24 05:55 Glucose 147 mg/dL (74-106) H 08/05/24 05:55 Vancomycin Trough 19.9 ug/mL (5.0-15.0) H 08/05/24 08:20 Random Vancomycin 18.4 ug/mL (0.0-15.0) H 08/04/24 08:51 Microbiology Microbiology: Microbiology 08/02/24 13:59 Bronchial Lavage - Left Lower Lobe Gram Stain - Final 08/02/24 13:59 Bronchial Lavage - Left Lower Lobe Respiratory Culture - Preliminary Appears to be normal respiratory elizabeth. Further studies to follow. 08/02/24 13:59 Bronchial Lavage - Right Lower Lobe Gram Stain - Final 08/02/24 13:59 Bronchial Lavage - Right Lower Lobe Respiratory Culture - Preliminary Appears to be normal respiratory elizabeth. Further studies to follow. 07/29/24 13:43 Blood Culture (Wb) - Port Blood Culture - Final No growth in 5 days. 07/29/24 13:18 Blood Culture (Wb) - Port Blood Culture - Final No growth in 5 days. 07/30/24 03:10 Urine, Random Streptococcus pneumoniae Antigen (M - Final 07/30/24 03:10 Urine, Random Legionella Antigen - Final 07/30/24 00:10 Nasal Secretion MRSA (PCR) - Final 07/29/24 17:42 Mucosa - Nasopharyngeal Respiratory Panel (PCR) - Final 07/29/24 13:18 Mucosa - Nose SARS-CoV-2, Influenza & RSV (PCR) - Final Goal Trough Goal Trough: 15-20 mcg/mL Pharmacy Plan for Drug Dosing Pharmacy Plan for Drug Dosing: VANCOMYCIN LEVEL RECEIVED Current Vancomycin Dose: 500mg q8h (0130,0930,1730) Number of Doses Received: x2 of current dose Vancomycin Level: 19.9 Hours Since Last Dose: 6 hours since last 500mg dose Renal Function: SrCr 0.67 Renal Function Trend: SrCr improving from 08/04/24 (0.74) but still increased from admission (0.46) Lab/Micro: Vancomycin Plan/Comments: recommend changing dose to 1250mg q12h. Changing from q8h to q12h will hopefully allow patient more time to clear dose. Recommend checking trough level 1 dose sooner than normal due to previous elevated levels Pending Level: 08/06/24 at 1030 Pharmacy Service will continue to monitor and adjust dosing as required. Follow-Up Labs Follow-Up Labs: Trough: Vancomycin (08/06/24 at 1030)
[2024-08-05] MEDS: Pantoprazole Sodium 40 MG in 0.9% Normal Saline (100mL MB+) 100 ML 330 MG IV (10:46)
[2024-08-05] MEDS: Morphine 2 MG/ML Syringe IV ×4 (11:22→23:43)
[2024-08-05] MEDS: Vancomycin HCl 1,250 MG in 0.9% Normal Saline (250mL Bag) 250 ML 167 MG IV (11:25)
[2024-08-05] MEDS: oxyCODONE 5 MG Tablet PO ×2 (12:15→16:35)
--- NOTE | 2024-08-05 12:55 | CASEMGMT ---
YUMIKO CM: Call received from pt's [place] insurance counsel Jacqueline who states she is available to assist with any discharge needs. She can be reached at [phone]. Ca Lane RN ACM
--- NOTE | 2024-08-05 14:14 | CASEMGMT ---
Social Work- SW received notice that pt and family would like hospice consult. SW completed consult and faxed documentation to hospice. SW called hospice to confirm receipt and request a meeting today per family. Hospice will consult at 5:30-6 today. Pt, family, bedside nurse, physician, and training officer updated. SW remains available to follow for any needs. MELA Mosqueda
--- NOTE | 2024-08-05 14:36 | CHAPLAIN ---
Type of Pastoral Visit _x__ Initial Visit ___ Follow-up Visit ___ On-call Visit ___ General Patient Visit ___ Spiritual Assessment ___ Family Conference ___ Bereavement ___ Rapid Response ___ Code Blue ___ Other (describe below) Pastoral Care Referral From ___ Patient ___ Family _x__ Nurse ___ Physician ___ Project Officer ___ Woodworking Machine Setter ___ Other (describe below) Sacrament/Intervention ___ Active listening ___ Anointing ___ Bahai ___ Bereavement ___ Communion ___ Misty exploration ___ ___ Life review ___ Prayer ___ Reconciliation ___ Sacrament of Sick _x__ Supportive presence ___ Wedding ___ Other (describe below) Pastoral Comments RN recommended an offer of support to this patient and to his family (spouse and sister) currently in the room as patient's condition is not improving but declining; introduction of self and role for support given; pt is awake but only gives minimal answers; spouse says that she is just glad that he is awake and can talk to us; patient is pretty stoic but sister has some tears; spouse says that she just wants the patient to get better; offer of support, presence, prayer etc. goes without an answer; offer to be available as the patient or family desires;
[2024-08-05] MEDS: NYSTATIN 500,000 UNIT/5 ML UDC 500000 UNIT PO (18:09)
[2024-08-05] MEDS: HYDROmorphone 1 MG/ML Syringe IV (21:57)
[2024-08-05] MEDS: LORazepam 2 MG/ML Syringe IV (21:57)
--- NOTE | 2024-08-05 23:43 | CPS ---
Patient stated he would prefer to not wear bipap unless absolutely necessary. Will keep on airvo for the night, unless patient in distress or oxygen desaturation.
[2024-08-06 02:05] VITALS: PULSE 86; RESP 20; O2SAT 91
[2024-08-06] MEDS: 0.9% Saline Lock 10 ML Syringe IV ×2 (03:41→14:04)
[2024-08-06] MEDS: HYDROmorphone 1 MG/ML Syringe IV ×3 (03:41→14:03)
[2024-08-06] MEDS: LORazepam 2 MG/ML Syringe IV ×3 (03:56→14:45)
[2024-08-06 06:05] VITALS: PULSE 95; RESP 24; O2SAT 89
[2024-08-06 07:00] VITALS: PULSE 94; RESP 26; O2SAT 88
[2024-08-06] MEDS: Morphine 2 MG/ML Syringe IV ×2 (07:48→13:24)
--- NOTE | 2024-08-06 08:14 | DCINST_ITS ---
Discharge Instructions Diet Discharge Diet: No restrictions DC O2, CPAP, BIPAP needs Home O2 Discharge instructions: No Follow Up Care Test Results: Test results from this visit will be discussed in further detail at your follow- up appointment, if applicable. Discharge Plan Admission Admit Date/Time: 07/29/24 14:59 Attending Provider: Ang Redman Primary Care Provider: Branden Jara Consulting Providers: Vicky Huerta; Ambrosio Wing; Martin Bellamy; Willis Coleman; James Phillips; Alex Alves; Shahbaz Alaniz; Guy Zambrano; Hanna Walters; Omid Nair; Lazaro Hardwick; Jerad Carrillo; Helen Wong; Joshua Mariano; Jose Luis Hector; Vladislav Ybarra; Asad Vega; Jun Haskins; Kaykay Duckworth; Ginna Ayon; Juaquin Cho; Tunde Palmer; Roverto Grey; Evelin Estrada; Alex Cunningham; Ronel Pina; Gretchen Tang; Cassie Wilcox; Alyssa Ortega NP; Savana Yates Discharge Orders/Prescriptions Prescriptions: New hyoscyamine sulfate 0.125 mg Tablet,Disintegrating 0.125 mg PO/SL Q4H PRN PRN (Reason: Congestion) Qty: 0 0RF atropine 1 % Drops 4 drp sublingual Q1H PRN PRN (Reason: Secretions) Qty: 0 0RF lorazepam 2 mg/mL Solution 2 mg IV Q4H PRN PRN (Reason: Anxiety) Qty: 0 0RF nystatin 100,000 unit/mL Suspension 500,000 unit PO 4X/DAY Qty: 0 0RF oxycodone 5 mg Tablet 5 mg PO Q4H PRN PRN (Reason: Pain Score 4-10) Qty: 0 0RF Artificial Tears(nd-[id number]) 1-0.2-0.2 % Drops 2 drp EACH EYE Q1H PRN PRN (Reason: DRY EYES) Qty: 0 0RF menthol-zinc oxide [Calmoseptine] 0.44-20.6 % Ointment 1 applic topical 4X/DAY Qty: 0 0RF Protocol: *Topical Application Instructions APPLICATION INSTRUCTIONS: apply to affected region Continued nystatin 100,000 unit/mL suspension 5 ml PO Q6H loperamide 2 mg capsule 4 mg PO Q6H PRN (Reason: loose stool) oxycodone 5 mg tablet 5 mg PO 4X/DAY PRN morphine concentrate 100 mg/5 mL (20 mg/mL) solution 5 mg PO BID PRN (Reason: pain) amlodipine-valsartan 5-320 mg tablet 1 tab PO DAILY Patient Comments: TAKE ONE TABLET BY MOUTH DAILY acetaminophen 500 mg capsule 500 mg PO Q6H PRN (Reason: pain) ondansetron HCl 4 mg tablet 4 mg PO Q8H PRN (Reason: nausea and vomiting) magnesium oxide 400 mg magnesium tablet 400 mg PO BID potassium chloride 20 mEq tablet,ER particles/crystals 20 meq PO BID Discontinued minocycline 100 mg capsule 100 mg PO BID Referrals / Follow Up: Branden Jara MD [Primary Care Provider] - Within 1 Week Disposition Disposition (needs filled in before D/C Order can be placed): Hospice in Medical Facility
--- NOTE | 2024-08-06 08:19 | PCM.DC.SUM ---
Providers Date of Admission: 07/29/24 Primary Care Physician: Dr. 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 / Pulmonary Medicine Routine Consulting Provider: Intensivists/Pulmonary Med Reason for Consult: Poss met CA vs post viral inflammatory vs BL interstit PNA EMERGENT Consult: No MD Notified: Yes Date Notified: 07/29/24 Time Notified: 15:02 Method of Notification: Text Consult: Onc/Wound/technical sales associate Routine Comment: Reason for Consult:: Skin breakdown, family wants more info on care at home 08/05/24 13:48 Consult: Hospice / Palliative Care Routine Consulting Provider: [facility] Reason for Consult: hospice care/end of life EMERGENT Consult: Yes MD Notified: Yes Date Notified: 08/05/24 Time Notified: 13:48 Method of Notification: Answering Service Reason For Visit: ? BL PNA/SIRS, HYPONATREMIA, ADULT FTT, POSS MET Diagnosis Discharge Diagnosis (1) Bilateral interstitial pneumonia: Status: Acute Code(s): J84.9 - Interstitial pulmonary disease, unspecified Medications at Discharge Home Medications amlodipine 5 mg-valsartan 320 mg tablet 1 tab PO DAILY 09/20/23 acetaminophen 500 mg capsule 500 mg PO Q6H PRN pain 10/31/23 ondansetron HCl 4 mg tablet 4 mg PO Q8H PRN nausea and vomiting 10/31/23 magnesium oxide 400 mg PO BID 05/02/24 potassium chloride 20 mEq tablet,extended release(part/cryst) 20 meq PO BID 05/02/24 loperamide 2 mg capsule 4 mg PO Q6H PRN loose stool 07/29/24 morphine concentrate 100 mg/5 mL (20 mg/mL) oral solution 5 mg PO BID PRN pain 07/29/24 nystatin 100,000 unit/mL oral suspension 5 ml PO Q6H 07/29/24 oxycodone 5 mg tablet 5 mg PO 4X/DAY PRN 07/29/24 atropine 1 % eye drops 4 drp sublingual Q1H PRN PRN Secretions #0 mL 08/06/24 hyoscyamine sulfate 0.125 mg disintegrating tablet 0.125 mg PO/SL Q4H PRN PRN Congestion #0 tabs 08/06/24 lorazepam 2 mg/mL injection solution 2 mg IV Q4H PRN PRN Anxiety #0 mL 08/06/24 menthol 0.44 %-zinc oxide 20.6 % topical ointment (Calmoseptine) 1 applic topical 4X/DAY #0 grams 08/06/24 nystatin 100,000 unit/mL oral suspension 500,000 unit (5 mL) PO 4X/DAY #0 mL 08/06/24 oxycodone 5 mg tablet 5 mg PO Q4H PRN PRN Pain Score 4-10 #0 tabs 08/06/24 peg [id number] 1 %-0.2 %-0.2 % eye drops (Artificial Tears ([id number])) 2 drp EACH EYE Q1H PRN PRN DRY EYES #0 mL 08/06/24 Hospital Course Operations None Procedures Bronchoscopy Summary of Care Provided Minutes Spent on Discharge: 33 Hospital Course: Per HPI: The patient is a 44 y/o M w/ PMHx: Chronic microcytic anemia, Former tobacco use, HTN, Metastatic Adenocarcinoma Colon CA following w/ Dr. 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 Workup in the ED included T98, heart rate 95, BP 112/76, respiratory rate 18, 97% on room air, CBC with WBC 12, hemoglobin 10.7, MCV 79.9, platelet 307 with increased immature granulocytes with left shift and lymphopenia, CMP with sodium 131, BUN/creatinine 12/0.46, GFR 212, lactic acid 1.5, hepatic profile not marked appearing, BNP 6.1, troponin 4, blood culture x 2 pending per ED, respiratory SARS COVID/influenza/RSV PCR pending per ED, EKG with sinus tachycardia with no acute evidence of ischemia CTA chest with no CTA evidence of pulmonary thromboemboli, thoracic aneurysm or dissection, multiple and multifocal peripheral inflammatory infiltrates with spiculated borders in both lungs, lower lobes more than upper lobes, multiple enlarged lymph nodes around the lower trachea and the subcarinal space and both johan, inflammatory versus neoplasm, mild bilateral posterior pleural effusions of bilateral posterior pleural thickening, moderate diffuse hepatic steatosis, incidentally included is a 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 ED physician did discuss case with patient's oncologist Dr. Yates and at this time recommendation for continued antibiotic therapies for possible bacterial pneumonia, continue evaluation for possible viral etiology and if this is unremarkable or patient does not improve recommendation for possible bronchoscopy with recommended concurrent pulmonary evaluation ongoing. In the ED patient ministered 1 L normal saline, IV azithromycin and IV Rocephin, morphine 4 mg IV x 1, Zofran 4 mg IV x 1, oral nystatin 5000 unit p.o. x 1. Hospital Course: # Multifocal airspace opacities with hypoxia -Concerning for pneumonia versus metastatic adenocarcinoma -Patient on broad-spectrum antibiotics -Evaluated by pulmonology and discussed with tractor distributor, if patient improves over the weekend with IV antibiotics he can be discharged on oral antibiotics and an outpatient CT but if not we will revisit possible bronchoscopy early in the week -Incentive spirometer ordered -Continue supportive care -07/31: Overnight patient with O2 sat to 88% now on 2 L and stable. Continuing broad-spectrum antibiotics, may need bronc next week if not improving -08/01: Remains on O2 despite antibiotics, may need bronchoscopy per previous discussion with pulmonology. Patient will be made n.p.o. at midnight in the event this would be able to happen tomorrow if pulmonology deems this necessary. Also hold Lovenox and put order for SCDs. Will resume Lovenox if no bronchoscopy planned -08/02: Patient for bronchoscopy today, continuing antibiotics at this time and supportive care. Discussed with pulmonology 08/03/2024: Increased work of breathing after his bronchoscopy, attempted BiPAP which she did not tolerate so we will continue with Lasix since he is 8 L positive and will continue with the Airvo hopefully will be able to have significant improvement in the next 24 to 48 hours 08/04/2024: Still on Airvo will obtain a CT of his abdomen and pelvis with contrast to determine whether or not there is been significant metastatic progression if so may need to be transferred to a higher level of care for biopsy of lung nodules. There is a concern that if he does have a pneumothorax he will be intubated and given his high FiO2 requirements he may not be able to be extubated therefore may need a tertiary level of care 08/05/2024: I had a 20-minute advance care planning conversation with prognosis and especially in the setting of possible lung metastases and pleural effusions. They would like to transfer to [facility] if possible for any surgical or procedural interventions as there is a high risk of needing intubation and they would like to do that where their oncologist is if necessary. I do have a call out to [facility] and in the meantime we will continue to communicate with family to decide with plan of care and goals of care are. 08/06/2024: Family, after multiple conversations, has elected to proceed with hospice at the inpatient unit. Will plan for discharge this morning. # History of metastatic adenocarcinoma of the colon -Following with Dr. Yates on outpatient basis -Status post colon resection -Actively undergoing chemo -Will need to follow-up on discharge -07/31: May need [facility] next week, patient's home pain medications were continued -08/01: Titrate pain medication as needed, supportive care -08/02: Continue supportive care 08/06/2024: After multiple discussions with oncology and the fact that it appears that he now has metastatic disease to his lungs family has elected to proceed with hospice care in a facility. Plan will be for discharge today # Poor p.o. intake -Patient appears somewhat clinically dry, IV fluids -07/31: Continues to have poor p.o. intake, will continue IV fluids -08/01: Minimize time patient is n.p.o. as possible, Magic cup of lunch and dinner -08/02: Resume diet when possible after bronchoscopy Physical Exam Narrative General: Sleepy, Cooperative, No apparent distress HEENT: Atraumatic, PERRLA, EOMI, Normocephalic Oral: Moist Mucosa Neck: Supple, No JVD Lungs: Diminished, Normal air movement, No rhonchi, scattered wheeze, No rales Cardiovascular: Regular rate, Regular Rhythm, Normal S1, Normal S2, No murmurs Abdomen: Soft, Non Tender, Non-Distended, No Hepato-splenomegaly Extremities: No edema, Capillary Refill Less than 3 Seconds Skin: No rashes, No breakdown Musculoskeletal: No Tenderness to Palpation of Joints or Extremities Neurological: No focal neurological deficits, Motor Exam 5/5 strength throughout, Sensory exam intact to light touch and pain Psych/Mental Status: Flat Medical Records Data Medical Nutrition Assessment Dietitian: Malnutrition Criteria Met Start: 07/30/24 12:45 Freq: Status: Active Protocol: Document 08/02/24 13:15 SLA (Rec: 08/02/24 13:15 SLA [id number]) Nutrition Malnutrition Evidence of Malnutrition Exists Yes Malnutrition (severe): Chronic Evidenced By Suboptimal Energy Intake ( Severe),Weight Loss (Severe), Physical Changes (Severe) Clinical Problem Chronic Disease or Condition Related Malnutrition Etiology related to colon cancer and possible mets Signs/Symptoms as evidenced by ~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 Status Active Problem Recommendation Dietitian Recommendations/Changes Rec liberalize diet to Regular consistency per pt request Will discontinue magic cup w/ lunch and dinner for increased nutrition if consumed - does not like ensure/boost/premier protein/CIB anymore Rec appetite stimulant to help encourage increased po intake Rec consider more aggressive nutrition support if po intake fails to improve and wt loss continues to help prevent further decline in pt nutritional status - if in accordance w/ pt/family wishes . Weight / BMI Weight Weight: 136 lb 7.458 oz Body Mass Index (BMI) 20.1 ABG / Lab / Microbiology Data 08/05/24 05:55 08/05/24 05:55 Laboratory: Laboratory Results - last 24 hr 08/05/24 08:20: Vancomycin Trough 19.9 H Microbiology: Microbiology 08/02/24 13:59 Bronchial Lavage - Left Lower Lobe Gram Stain - Final 08/02/24 13:59 Bronchial Lavage - Left Lower Lobe Respiratory Culture - Final Mixed normal respiratory elizabeth. No Streptococcus pneumoniae, beta-hemolytic Streptococcus or Staphylococcus aureus isolated. 08/02/24 13:59 Bronchial Lavage - Right Lower Lobe Gram Stain - Final 08/02/24 13:59 Bronchial Lavage - Right Lower Lobe Respiratory Culture - Final Mixed normal respiratory elizabeth. No Streptococcus pneumoniae, beta-hemolytic Streptococcus or Staphylococcus aureus isolated. 07/29/24 13:43 Blood Culture (Wb) - Port Blood Culture - Final No growth in 5 days. 07/29/24 13:18 Blood Culture (Wb) - Port Blood Culture - Final No growth in 5 days. 07/30/24 03:10 Urine, Random Streptococcus pneumoniae Antigen (M - Final 07/30/24 03:10 Urine, Random Legionella Antigen - Final 07/30/24 00:10 Nasal Secretion MRSA (PCR) - Final 07/29/24 17:42 Mucosa - Nasopharyngeal Respiratory Panel (PCR) - Final 07/29/24 13:18 Mucosa - Nose SARS-CoV-2, Influenza & RSV (PCR) - Final D/C Instructions Discharge Diet: No restrictions DC O2, CPAP, BIPAP Needs PSN CPAP & BiPAP: BiPAP & CPAP Settings per PSN Mode AIRVO 08/06/24 06:05 Bipap Delivery Device Face Mask 08/05/24 07:00 BiPAP Inspiratory Pressure 12 08/05/24 00:09 BiPAP Expiratory Pressure 12 08/05/24 07:00 BiPAP Rate 14 08/05/24 07:00 Fraction of Inspired Oxygen ( 95 08/06/24 06:05 FIO2) Total Flow Rate 60 08/06/24 06:05 Home O2 Discharge instructions: No Meaningful Use Info Meaningful Use Meaningful Use Diagnoses (Choose all that apply): None applicable Ischemic Stroke Statin Dosing Therapy Reference: STATIN DOSE THERAPY REFERENCE: * Patients > 75 years receive moderate or high dose statin therapy. * Patients 75 years or YOUNGER should receive HIGH intensity statin dose unless contraindicated. You will be required to document reason for non-treatment if statin daily dose does not meet guidelines. HIGH DOSE STATIN THERAPY DAILY Atorvastatin > than or = to 40 mg Rosuvastatin > than or = to 20 mg Amlodipine + Atorvastatin > than or = to 2.5/40 mg Ezetimibe + Simvastatin 10/80 mg Simvastatin 80mg Discharge Plan Admission Admit Date/Time: 07/29/24 14:59 Attending Provider: Ang Redman Primary Care Provider: Branden Jara Consulting Providers: Vicky Huerta; Ambrosio Wing; Martin Bellamy; Willis Coleman; James Phillips; Alex Alves; Shahbaz Alaniz; Guy Zambrano; Hanna Walters; Omid Nair; Lazaro Hardwick; Jerad Carrillo; Helen Wong; Joshua Mariano; Jose Luis Hector; Vladislav Ybarra; Asad Vega; Jun Haskins; Kaykay Duckworth; Ginna Ayon; Juaquin Cho; Tunde Palmer; Roverto Grey; Evelin Estrada; Alex Cunningham; Ronel Pina; Gretchen Tang; Cassie Wilcox; Alyssa Ortega NP; Savana Yates Discharge Orders/Prescriptions Prescriptions: New hyoscyamine sulfate 0.125 mg Tablet,Disintegrating 0.125 mg PO/SL Q4H PRN PRN (Reason: Congestion) Qty: 0 0RF atropine 1 % Drops 4 drp sublingual Q1H PRN PRN (Reason: Secretions) Qty: 0 0RF lorazepam 2 mg/mL Solution 2 mg IV Q4H PRN PRN (Reason: Anxiety) Qty: 0 0RF nystatin 100,000 unit/mL Suspension 500,000 unit PO 4X/DAY Qty: 0 0RF oxycodone 5 mg Tablet 5 mg PO Q4H PRN PRN (Reason: Pain Score 4-10) Qty: 0 0RF Artificial Tears([id number]) 1-0.2-0.2 % Drops 2 drp EACH EYE Q1H PRN PRN (Reason: DRY EYES) Qty: 0 0RF menthol-zinc oxide [Calmoseptine] 0.44-20.6 % Ointment 1 applic topical 4X/DAY Qty: 0 0RF Protocol: *Topical Application Instructions APPLICATION INSTRUCTIONS: apply to affected region Continued nystatin 100,000 unit/mL suspension 5 ml PO Q6H loperamide 2 mg capsule 4 mg PO Q6H PRN (Reason: loose stool) oxycodone 5 mg tablet 5 mg PO 4X/DAY PRN morphine concentrate 100 mg/5 mL (20 mg/mL) solution 5 mg PO BID PRN (Reason: pain) amlodipine-valsartan 5-320 mg tablet 1 tab PO DAILY Patient Comments: TAKE ONE TABLET BY MOUTH DAILY acetaminophen 500 mg capsule 500 mg PO Q6H PRN (Reason: pain) ondansetron HCl 4 mg tablet 4 mg PO Q8H PRN (Reason: nausea and vomiting) magnesium oxide 400 mg magnesium tablet 400 mg PO BID potassium chloride 20 mEq tablet,ER particles/crystals 20 meq PO BID Discontinued minocycline 100 mg capsule 100 mg PO BID Referrals / Follow Up: Branden Jara MD [Primary Care Provider] - Within 1 Week Disposition Disposition (needs filled in before D/C Order can be placed): Hospice in Medical Facility Charges/Coding Visit Charges Inpatient E&M: 30086 Disch Hosp >30min
[2024-08-06 09:58] VITALS: PULSE 109; RESP 25; O2SAT 85
[2024-08-06 12:15] VITALS: O2SAT 78
--- NOTE | 2024-08-06 14:06 | CASEMGMT ---
Social Work Pt and family met with [facility] last evening and signed papers for services and was accepted into the [facility]. Transportation was arranged between 8-10. This morning nursing informed that transport would be at 11:15. Transport running late and arrived at approximatly 1200. Per nursing, transportation would not transport pt to the [facility] due to concerns with oxygen (pt changed from 60L airvo to 15L non rebreather). Transportation left [facility] without patient. This SW placed call to [facility]. CARLI spoke with YUMIKO Guevara and Valencia Levine, manager of learning. Pt was not transported to the [facility] as pt needed an extended weaning period from Airvo to nonrebreather prior to transport to confirm pt could tolerate. Transportation set for 4pm citrus picker by the [facility]. Valencia did attempt to get transportation sooner, however this is the first available transport time out of 4 companies check with. CARLI met with pt and family and explained confusion with transportation and new transportation time. YUMIKO britt. MELA Holt
[2024-08-06 15:00] VITALS: BP 145/99; PULSE 138; RESP 37; O2SAT 62
== END 2024-08-06 16:05 | disposition hospice, inpatient (51) | DRG 196 ==
LOC: ED 14:13 → MS3 16:51 → PCU 08-03 07:32 → ICU 08-05 00:03
PROVIDERS: Internal Medicine; Internal Medicine Critical Care Medicine; Admitting Provider Family Medicine; Emergency Provider Emergency Medicine; PCP Family Medicine; Visit Provider Family Medicine
PROC: 0BJ08ZZ Inspection of Tracheobronchial Tree, Via Natural or Artificial Opening Endoscopic (ICD-10-PCS; CPT 31622; principal; 2024-08-02 12:15)
DX: J84.9 Interstitial pulmonary disease, unspecified (principal); R65.11 Systemic inflammatory response syndrome (SIRS) of non-infectious origin with acute organ dysfunction; J96.01 Acute respiratory failure with hypoxia; E43 Unspecified severe protein-calorie malnutrition; C78.00 Secondary malignant neoplasm of unspecified lung; B37.0 Candidal stomatitis; E87.1 Hypo-osmolality and hyponatremia; D63.0 Anemia in neoplastic disease; I10 Essential (primary) hypertension; Z93.3 Colostomy status; D50.9 Iron deficiency anemia, unspecified; R63.4 Abnormal weight loss; Z87.891 Personal history of nicotine dependence; T45.1X5A Adverse effect of antineoplastic and immunosuppressive drugs, initial encounter; Z68.20 Body mass index [BMI] 20.0-20.9, adult; Z85.038 Personal history of other malignant neoplasm of large intestine
CPT/HCPCS: 36415; 36600; 71045; 71275; 74177; 80048; 80053; 80202; 82728; 82803; 83540; 83550; 83605; 83735; 83880; 84100; 84145; 84484; 85025; 87015; 87040; 87070; 87116; 87205; 87206; 87252; 87278; 87449; 87631; 87633; 87641; 88108; 88305; 88312; 88313; 89050; 93005; 94002; 94003; 94660; 94668; 94762; 97802; 99284; Q9967; A4216; J0696; J1940; J2405